=== PATIENT | male | born 1955 | race Caucasian/White ===

== ENCOUNTER 2017-07-17 11:30 | Observation (INO) ==
[2017-07-17] MEDS ORDERED: Azithromycin 500 MG in D5% in Water 250 ML IVPB ONE (11:36)
[2017-07-17] MEDS ORDERED: methylPREDNISolone 125 MG/2 ML VIAL IVP ONE (11:36)
[2017-07-17] MEDS ORDERED: cefTRIAXone 1,000 MG in Water for inj. (sterile) 20 ML 10 ML IVP ONE (11:36)
[2017-07-17] MEDS ORDERED: 0.9 % Sodium Chloride 1,000 ML IVC ONE (11:36)
--- NOTE | 2017-07-17 11:39 | Emergency Department Note ---
Disposition Clinical Impression: Acute exacerbation of chronic obstructive airways disease Disposition: Admitted As Inpatient Condition: Fair Referrals: Nelli Beckett, IDENTIFICATION OFFICER [Primary Care Provider] - Forms: ED Satisfaction Letter SOB HPI - General Chief Complaint: ED Shortness of Breath/Dyspnea Stated Complaint: difficulty breathinf, hemoptysis Time Seen by Provider: 07/17/17 11:36 Source: patient, family Mode of arrival: private vehicle Limitations: no limitations Nursing Notes Reviewed: Yes Vital Signs Reviewed: Yes - History of Present Illness Patient reports she has had upper respiratory congestion and cough for about 3 weeks. States he has been bringing up some phlegm and last week a little bit of blood-tinged sputum. He denies any coughing of blood in the last day. He has had increased shortness of breath and dyspnea on exertion. He is concerned he may have pneumonia. He does report some fevers and chills. He denies chest pain and states that he is having "just short of breath". Denies any ill exposures, abdominal pain, vomiting or diarrhea. He denies any lower extremity complaints. He has had his flu shot. On arrival his room air saturations were between 84 and 88% requiring placing him on supplemental oxygen. He indicates he does have an inhaler at home but he does not use it. Pt Subjective Complaint: shortness of breath Onset (ago): week(s) (3) Context: recent illness Severity: moderate, severe Consistency/Duration: gradually worsening Improves with: rest Worsens with: exertion, coughing Known history of: COPD (Not using inhalers) Associated symptoms: Reports: fever, cough, wheezing, sputum production, hemoptysis. Denies: chest pain, pain with inspiration, orthopnea, lower extremity pain, polyuria, polydipsia, parasthesias, palpitations, diaphoresis, nausea/vomiting, syncope, abdominal pain, rash Treatment prior to arrival: none Cough present: Yes Cough Description: Productive, Hacking, Rattling Cough Frequency: Intermittent Sputum production: Yes Sputum Amount: Moderate Sputum Color: Yellow, Blood Streaked - Related Data Home oxygen amount: none Home Medications Medication Instructions Recorded Confirmed Unable To Obtain [Unable to Obtain] 07/17/17 07/17/17 Allergies Allergy/AdvReac Type Severity Reaction Status Date / Time No Known Allergies Allergy Verified 07/17/17 11:32 All systems ED: reviewed and negative except as stated. Past Medical History - Past Medical History Attestation: Yes The following information was validated with the patient. Source: patient, obtained from family, nursing notes reviewed Medical history: Reports: COPD, diabetes, hypertension Surgical history: Reports: no surgical history Psychiatric history: Reports: anxiety, depression, schizophrenia - Social History Smoking Status: Current every day smoker Alcohol use: Reports: occasionally Drug use: Reports: none Physical Exam - General Limitations: no limitations General appearance: alert, in distress - Head Head exam: atraumatic, normocephalic, normal inspection - Eye Eye exam: Present: normal appearance, PERRL, EOMI. Absent: conjunctival injection - ENT ENT exam: normal oropharynx, mucous membranes dry - Neck Neck exam: Present: normal inspection, full ROM, trachea midline. Absent: tenderness, meningismus, lymphadenopathy - Chest Chest inspection: Present: normal inspection, symmetric chest wall rise - Respiratory Respiratory exam: Present: normal lung sounds bilaterally. Absent: respiratory distress, wheezes, prolonged expiratory phase - Cardiovascular Cardiovascular exam: Present: regular rate, normal rhythm, tachycardia, normal heart sounds. Absent: JVD - Abdominal Exam Abdominal exam: Present: soft, Non-Tender, normal bowel sounds. Absent: tenderness, distention, guarding, rebound, rigidity, pulsatile mass - Extremities Exam Extremities exam: Present: normal inspection, full ROM, normal capillary refill. Absent: tenderness, pedal edema, calf tenderness - Expanded Lower Extremity Exam Neurovascular/Tendon exam: Present: normal capillary refill. Absent: motor deficit, sensory deficit, tendon deficit Gait: observed and normal - Back Exam Back exam: Present: normal inspection, full ROM. Absent: tenderness, CVA tenderness (R), CVA tenderness (L), vertebral tenderness - Neurological Exam Neurological exam: Present: alert, oriented X3, normal gait. Absent: motor sensory deficit - Psychiatric Psychiatric exam: Present: normal affect, normal mood - Skin Skin exam: Present: warm, dry, intact, normal color. Absent: rash, cyanosis, diaphoresis, pallor Course Course Narrative: 1240: With return EKG, lab and x-ray, the patient is improving on aerosols, IV fluids, steroids and antibiotics. He currently has a heart rate of 103, saturation 97% on an aerosol treatment with a respiratory rate elevated at 30. His blood pressure is 148/81. I believe it would be prudent to continue him on oxygen by nasal cannula and IV treatment for his COPD exacerbation with serial aerosols as needed. A page has been placed to Dr. Blanco for this purpose with the plan for inpatient observation. This has been discussed with the patient and family and they are in agreement. Vital Signs Temperature 97.7 F 07/17/17 11:34 Pulse Rate 105 07/17/17 11:34 Respiratory Rate 28 07/17/17 11:34 Blood Pressure 156/85 07/17/17 11:34 O2 Sat by Pulse Oximetry 84 07/17/17 11:34 Temperature 97.7 F 07/17/17 11:34 Pulse Rate 99 07/17/17 12:31 Respiratory Rate 20 07/17/17 12:31 Blood Pressure 135/80 07/17/17 12:31 O2 Sat by Pulse Oximetry 96 07/17/17 12:31 Oxygen Delivery Oxygen Delivery Nasal Cannula Shortness of Breath/Dyspnea - Differential Diagnosis Likely: acute exacerbation of chronic obstructive airways disease, pneumonia - Medical Records Medical records reviewed: Yes I reviewed the patient's medical records. - Lab Data Lab results reviewed: Yes I reviewed the patient's lab results. Lab results narrative: Influenza A and influenza B are negative. Result diagrams: 07/17/17 11:55 07/17/17 11:55 Lab Results 07/17/17 07/17/17 07/17/17 Range/Units 11:55 11:55 11:55 WBC 8.8 (4.3-11.1) K/mcL RBC 4.42 (4.19-5.50) M/mcL Hgb 13.0 (12.9-16.9) g/dL Hct 38.0 (37.5-50.1) % MCV 86.0 (83.0-100.0) fL MCH 29.4 (28.0-33.3) pg MCHC 34.2 (31.6-35.5) g/dL RDW 14.6 H (11.5-14.5) % Plt Count 184 (140-400) K/mcL MPV 9.6 (9.4-12.4) fL Immature Gran % 0.5 (0-4) % Seg Neutrophils % 89.2 % Lymphocytes % 5.5 % Monocytes % 4.7 % Eosinophils % 0.0 % Basophils % 0.1 % Neutrophils # 7.9 (1.6-8.9) K/mcL Lymphocytes # 0.5 L (0.6-4.6) K/mcL Monocytes # 0.4 (0.0-1.3) K/mcL Eosinophils # 0.0 (0.0-0.6) K/mcL Basophils # 0.0 (0.0-0.2) K/mcL PT (9.4-12.1) Seconds INR APTT (26.0-36.0) Seconds Sodium 132 L (136-145) mEq/L Potassium 4.0 (3.5-5.1) mEq/L Chloride 93 L (98-107) mEq/L Carbon Dioxide 31 H (23-29) mEq/L BUN 8 (8-23) mg/dL Creatinine 0.48 L (0.70-1.30) mg/dL Est GFR ( Amer) > 60 (> 60) Est GFR (Non-Af Amer) > 60 (> 60) BUN/Creatinine Ratio 17 (6-26) Glucose 119 H (70-105) mg/dL Calculated Osmolality 273 L (280-300) Lactic Acid 1.0 (0.5-2.2) mmol/L Calcium 8.8 (8.6-10.3) mg/dL Troponin I (< 0.04) ng/mL B-Natriuretic Peptide (Less than 100) pg/mL 07/17/17 07/17/17 07/17/17 Range/Units 11:55 11:55 11:55 WBC (4.3-11.1) K/mcL RBC (4.19-5.50) M/mcL Hgb (12.9-16.9) g/dL Hct (37.5-50.1) % MCV (83.0-100.0) fL MCH (28.0-33.3) pg MCHC (31.6-35.5) g/dL RDW (11.5-14.5) % Plt Count (140-400) K/mcL MPV (9.4-12.4) fL Immature Gran % (0-4) % Seg Neutrophils % % Lymphocytes % % Monocytes % % Eosinophils % % Basophils % % Neutrophils # (1.6-8.9) K/mcL Lymphocytes # (0.6-4.6) K/mcL Monocytes # (0.0-1.3) K/mcL Eosinophils # (0.0-0.6) K/mcL Basophils # (0.0-0.2) K/mcL PT 10.6 (9.4-12.1) Seconds INR 1.0 APTT 28.9 (26.0-36.0) Seconds Sodium (136-145) mEq/L Potassium (3.5-5.1) mEq/L Chloride (98-107) mEq/L Carbon Dioxide (23-29) mEq/L BUN (8-23) mg/dL Creatinine (0.70-1.30) mg/dL Est GFR ( Amer) (> 60) Est GFR (Non-Af Amer) (> 60) BUN/Creatinine Ratio (6-26) Glucose (70-105) mg/dL Calculated Osmolality (280-300) Lactic Acid (0.5-2.2) mmol/L Calcium (8.6-10.3) mg/dL Troponin I < 0.03 (< 0.04) ng/mL B-Natriuretic Peptide 160 H (Less than 100) pg/mL - Radiology Data Radiology results reviewed: Yes I reviewed the patient's radiology results. Reviewed chest x-ray is performed. This shows hyperinflation consistent with COPD. He has some atelectasis present in the right base. He has high hilar fullness which is most prominent on the left side. I would be concerned for possible left hilar mass. Do not see evidence for effusion, pneumothorax or heart failure. The cardiac silhouette is not significantly enlarged. This is on my interpretation. Impressions Chest X-Ray 07/17/17 11:36 IMPRESSION: Hyperinflation and diffuse increased interstitial markings most suggestive of COPD. D/ / 07/17/2017 12:14:44 Bolivar Nix MD / [facility] Interpreting Provider: Bolivar Nix MD - EKG Data EKG attestation: Yes I reviewed and interpreted this EKG. EKG results narrative: Sinusoidal baseline artifact from the patient's tremor. Patient has a rate of 99, sinus with an axis of 38, AR interval of 170 and a QT/QTC is 341/397. Patient has evidence for LVH. I do not see acute ST or T-wave changes but baseline evaluation of this EKG is severely limited by the artifact.
[2017-07-17 12:03] LABS: Basophils % 0.1 %; Immature Granulocytes % 0.5 % (0-4); Lymphocytes # 0.5 K/mcL (0.6-4.6); Lymphocytes % 5.5 %; Mean Corpuscular HGB Conc 34.2 g/dL (31.6-35.5); Mean Corpuscular Hemoglobin 29.4 pg (28.0-33.3); Mean Platelet Volume 9.6 fL (9.4-12.4); Monocytes # 0.4 K/mcL (0.0-1.3); Monocytes % 4.7 %; Neutrophils # 7.9 K/mcL (1.6-8.9); Platelet Count 184 K/mcL (140-400); Red Blood Count 4.42 M/mcL (4.19-5.50); Red Cell Distribution Width 14.6 % (11.5-14.5); Segmented Neutrophils % 89.2 %
[2017-07-17 12:06] LABS: Prothrombin Time 10.6 Seconds (9.4-12.1)
[2017-07-17 12:09] LABS: Activated Partial Thrombo Time 28.9 Seconds (26.0-36.0)
[2017-07-17 12:17] LABS: BUN/Creatinine Ratio 17 (6-26); Blood Urea Nitrogen 8 mg/dL (8-23); Calcium 8.8 mg/dL (8.6-10.3); Carbon Dioxide 31 mEq/L (23-29); Chloride 93 mEq/L (98-107); Glucose 119 mg/dL (70-105); Osmolality,Calculated 273 (280-300); Sodium 132 mEq/L (136-145); eGFR For African Americans > 60 (> 60); eGFR For Non-African Americans > 60 (> 60)
[2017-07-17] MEDS: Ipratropium/Albuterol Neb 3 ML IH ONE ×2 (12:36→20:59)
[2017-07-17] MEDS ORDERED: 0.9 % Sodium Chloride 1,000 ML IVC SCH ×3 (13:45→15:00)
[2017-07-17] MEDS ORDERED: Albuterol 2.5 MG/3 ML NEBULIZER IH PRN (15:00)
[2017-07-17] MEDS ORDERED: Ondansetron 4 MG/2 ML VIAL IVP PRN (15:00)
[2017-07-17] MEDS ORDERED: Naloxone 0.4 MG/ML INJ IVP PRN (15:00)
[2017-07-17] MEDS ORDERED: Acetaminophen 325 MG TABLET PO PRN (15:00)
[2017-07-17] MEDS ORDERED: MOM Conc 10 ML UD.LIQ PO PRN (15:00)
[2017-07-17] MEDS ORDERED: Ipratropium/Albuterol Neb 3 ML IH SCH (16:00)
--- NOTE | 2017-07-17 19:41 | Internal Med History&Physical ---
Date of Encounter: 07/17/17 Time of Encounter: 19:10 Assessment and Plan (1) Acute exacerbation of chronic obstructive airways disease Current visit: Yes Status: Acute He has been started on Rocephin and Zithromax with prednisone. I will add lactobacillus. Chest CT will be done to further evaluate hemoptysis (2) Hypertension Current visit: Yes Status: Chronic He does not know the name of his blood pressure medication. Will monitor blood pressures and treat as needed. Qualifiers: Hypertension type: essential hypertension Qualified Code(s): I10 - Essential (primary) hypertension Internal Medicine - H&P: HPI Chief complaint: Fevers, chills, hemoptysis Admitted From: Emergency Dept Plans for Post Hospital Care: Home History of present illness: Mr. Russell is a 61 year old male who came to emergency room complaining of fevers chills and cough with occasional hemoptysis for the past 2-3 weeks. He has had increasing dyspnea on exertion. He was evaluated in emergency room and felt to have exacerbation of COPD. He was admitted to [facility] for for ongoing care needs. His respiratory history significant for having smoked since age 17 up to 3 packs per day. He has not had PFTs and does not use home oxygen. Past Med Surg Social Fam HX - Past Medical History Medical history: COPD, diabetes, hypertension Psychiatric history: anxiety, depression, schizophrenia - Past Surgical History Surgical History: no surgical history - Social History Smoking Status: Current every day smoker Smokeless Tobacco Status: No Alcohol use: occasionally Drug use: none Internal Medicine - H&P: Meds Unable To Obtain [Unable to Obtain] 07/17/17 [History] 3 Allergy/AdvReac Type Severity Reaction Status Date / Time No Known Allergies Allergy Verified 07/17/17 11:32 All Systems PM: A 10-system review of systems was performed and is negative for pertinent findings except as documented above in the HPI. Review of systems: Gen.: He states his weight is increased 15 pounds in the past 2 years, unintentional Cardiovascular: He has history of hypertension but denies SD heart failure or angina DVT or pulmonary embolism. He does get dyspneic on exertion. Respiratory: As per history of present illness GI: He denies disorders of his liver gallbladder or exocrine pancreas : He denies hematuria dysuria or kidney stones Neurologic: He denies large distribution strokes or seizures. Endocrine: He was diagnosed with DM 2 approximately 2001. He denies thyroid disease or hyperlipidemia Hematology/oncology: He denies blood disorders cancers or anemia Psychiatric: He has anxiety depression and schizophrenia. He follows with mental health clinic. Musculoskeletal: He reports occasional pain in his hand but denies significant arthritis gout or other bone joint or muscle disorders. - Constitutional Vitals: Temp Pulse Resp BP Pulse Ox 97.6 F 90 14 123/73 94 07/17/17 15:24 07/17/17 15:24 07/17/17 16:21 07/17/17 15:24 07/17/17 16:21 Exam: Gen.: He is a well-developed well-nourished male lying in bed who appears slightly dyspneic at rest HEENT: Head is atraumatic and normocephalic. Eyes: EOMI. There is no scleral icterus. Mouth: Mucosa is moist. Neck: Supple and nontender. There is no thyromegaly or adenopathy noted. Heart: Regular without murmurs gallops or ectopics Lungs: No wheezes or crackles are heard. He has diminished breath sounds diffusely. There is no egophony. Back: He has dorsal kyphosis. There is no flank tenderness or presacral edema Abdomen: Soft and nontender. No masses or guarding are noted. Extremities: There is no cyanosis edema or clubbing noted. Dorsalis pedis and posttibial pulses are trace palpable bilaterally. His feet are warm to touch. He has onychomycosis of most of his toenails. Neurologic: Mental status: He is talkative and seems to be a fair to good historian. Cranial nerves: Smile is symmetric. Forehead wrinkles bilaterally. Tongue protrudes midline. EOMI. Motor: There is no pronator drift. Cerebellar: Finger to nose is intact bilaterally. Skin: Warm and dry. He has poor hygiene. Internal Med - H&P Results - Labs CBC & Chem 7: 07/17/17 11:55 07/17/17 11:55
[2017-07-17] MEDS: predniSONE 20 MG TABLET PO SCH (21:27)
[2017-07-18 01:19] LABS: Bilirubin,Urine Negative (Negative); Blood,Urine Negative (Negative); Clarity,Urine Clear (Clear); Color,Urine Yellow (Yellow); Glucose,Urine (UA) 500 mg/dL (Normal); Ketones,Urine 40 mg/dL (Negative); Leukocyte Esterase,Urine Negative (Negative); Nitrite,Urine Negative (Negative); Protein,Urine Negative (Neg-Trace); Specific Gravity,Urine 1.015 (1.010-1.025)
[2017-07-18 04:53] LABS: Hematocrit 35.4 % (37.5-50.1); Immature Granulocytes % 0.8 % (0-4); Lymphocytes # 0.3 K/mcL (0.6-4.6); Mean Corpuscular HGB Conc 33.9 g/dL (31.6-35.5); Mean Corpuscular Hemoglobin 29.1 pg (28.0-33.3); Mean Corpuscular Volume 85.7 fL (83.0-100.0); Mean Platelet Volume 10.2 fL (9.4-12.4); Monocytes # 0.1 K/mcL (0.0-1.3); Monocytes % 2.3 %; Neutrophils # 4.4 K/mcL (1.6-8.9); Platelet Count 207 K/mcL (140-400); Red Blood Count 4.13 M/mcL (4.19-5.50); Red Cell Distribution Width 14.6 % (11.5-14.5); Segmented Neutrophils % 89.9 %
[2017-07-18 05:12] LABS: Alanine Aminotransferase 8 Units/L (7-52); Albumin 3.3 g/dL (3.5-5.7); Albumin/Globulin Ratio 1.3 (1.1-2.2); Alkaline Phosphatase 37 Units/L (34-104); Aspartate Amino Transferase 11 Units/L (13-39); BUN/Creatinine Ratio 19 (6-26); Bilirubin,Total 0.4 mg/dL (0.3-1.0); Blood Urea Nitrogen 8 mg/dL (8-23); Calcium 8.3 mg/dL (8.6-10.3); Carbon Dioxide 28 mEq/L (23-29); Chloride 98 mEq/L (98-107); Globulin 2.5 g/dL (2.4-3.5); Glucose 147 mg/dL (70-105); Osmolality,Calculated 277 (280-300); Potassium 4.1 mEq/L (3.5-5.1); Sodium 133 mEq/L (136-145); Total Protein 5.8 g/dL (6.4-8.9); eGFR For African Americans > 60 (> 60); eGFR For Non-African Americans > 60 (> 60)
[2017-07-18 05:26] LABS: Thyroid Stimulating Hormone 0.268 mcIU/mL (0.340-5.600)
[2017-07-18] MEDS ORDERED: Azithromycin 500 MG in D5% in Water 250 ML IVPB SCH (09:00)
--- NOTE | 2017-07-18 09:22 | Internal Med Progress Note ---
Date of Encounter: 07/18/17 Time of Encounter: 09:15 - Assessment and plan (1) Pneumonia Current Visit: Yes Status: Acute Assessment and plan: July 18. Continue antibiotics and lactobacillus. Qualifiers: Pneumonia type: due to unspecified organism Laterality: left Lung location: lower lobe of lung Qualified Code(s): J18.1 - Lobar pneumonia, unspecified organism (2) Acute exacerbation of chronic obstructive airways disease Current Visit: Yes Status: Acute Assessment and plan: July 18. Continue Rocephin, Zithromax, prednisone, and lactobacillus. (3) Hypertension Current Visit: Yes Status: Chronic Assessment and plan: July 18. Blood pressure remained stable off medication. Qualifiers: Hypertension type: essential hypertension Qualified Code(s): I10 - Essential (primary) hypertension (4) Abdominal mass, left upper quadrant Current Visit: Yes Status: Acute Assessment and plan: July 18. Will order abdominal/pelvis CT with contrast (5) Lung nodule Current Visit: Yes Status: Acute Assessment and plan: July 18. Chest CT showed 6 mm nodule in the peripheral left lower lobe. Will do further workup as needed. (6) Anemia Current Visit: Yes Status: Acute Assessment and plan: July 18. Hemoglobin has decreased to 12.0. We will order anemia testing in a.m. Qualifiers: Anemia type: unspecified type Qualified Code(s): D64.9 - Anemia, unspecified - Subjective Interval history: July 18. He has no new complaints. - Constitutional Vitals: Temp Pulse Resp BP Pulse Ox 98.0 F 79 17 119/76 96 07/18/17 07:02 07/18/17 07:02 07/18/17 07:02 07/18/17 07:02 07/18/17 07:02 Exam: He is resting comfortably in bed and appears in no acute distress. He had occasional cough during examination. Reviewed his medications, lab results, and CT chest report. Internal Medicine: Result - Labs CBC & Chem 7: 07/18/17 03:57 07/18/17 03:57 Labs: Short CBC 07/18/17 Range/Units 03:57 WBC 4.8 (4.3-11.1) K/mcL Hgb 12.0 L (12.9-16.9) g/dL Hct 35.4 L (37.5-50.1) % Plt Count 207 (140-400) K/mcL Neutrophils # 4.4 (1.6-8.9) K/mcL BMP 07/18/17 03:57 Sodium 133 L Potassium 4.1 Chloride 98 Carbon Dioxide 28 BUN 8 Creatinine 0.43 L Glucose 147 H Calcium 8.3 L Liver Function 07/18/17 Range/Units 03:57 Total Bilirubin 0.4 (0.3-1.0) mg/dL AST 11 L (13-39) Units/L ALT 8 (7-52) Units/L Alkaline Phosphatase 37 (34-104) Units/L Albumin 3.3 L (3.5-5.7) g/dL Urine 07/17/17 Range/Units 23:14 Urine Color Yellow (Yellow) Urine Clarity Clear (Clear) Urine pH 7.0 (5.0-8.0) pH Units Ur Specific [place] 1.015 (1.010-1.025) Urine Protein Negative (Neg-Trace) mg/dL Urine Glucose (UA) 500 H (Normal) mg/dL - ABG Interpretation ABG results: PT/INR, D-dimer PT 10.6 Seconds (9.4-12.1) 07/17/17 11:55 - Impressions Impressions Chest CT 07/17/17 19:37 IMPRESSION: 1. There is moderate motion degradation, which limits the evaluation, especially within the lower lungs and the upper abdomen. 2. Evidence of probable left lower lobe consolidation, suggesting pneumonia, with a small left parapneumonic effusion. That should be followed to resolution. 3. There is a soft tissue mass seen within the left upper quadrant, poorly evaluated secondary to the degree of respiratory motion artifact. It probably extends from the left kidney or less likely the left adrenal gland, but even that is uncertain. At this point, dedicated CT of the abdomen pelvis with contrast is recommended for further evaluation. 4. Nodule in the left lower lobe. Management of that will depend on the workup of the mass in the left upper abdominal quadrant. D/ / Nadeem Mckinley MD / Nadeem Mckinley MD Interpreting Provider: Nadeem Mckinley MD - VTE Documentation of Mechanical Device: Graduated compression elastic hosiery Consult Discharge Plan - Plan Referrals: Nelli Beckett, THERAPEUTIC STRATEGY LEAD [Primary Care Provider] - 1 week
[2017-07-18] MEDS: predniSONE 20 MG TABLET PO SCH ×2 (09:48→16:43)
[2017-07-18 18:19] VITALS: BP 114/68
--- NOTE | 2017-07-19 07:57 | Electrocardiograph Report ---
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
[2017-07-19] MEDS ORDERED: cefTRIAXone 1,000 MG in Water for inj. (sterile) 10 ML IVP SCH (09:00)
[2017-07-19] MEDS ORDERED: Azithromycin 500 MG in D5% in Water 250 ML IVPB SCH (10:00)
--- NOTE | 2017-07-19 14:11 | Discharge Summary ---
Date of Encounter: 07/19/17 Time of Encounter: 14:05 - Discharge Diagnosis (1) Pneumonia Priority: Primary Status: Acute Qualifiers: Pneumonia type: due to unspecified organism Laterality: left Lung location: lower lobe of lung Qualified Code(s): J18.1 - Lobar pneumonia, unspecified organism (2) Acute exacerbation of chronic obstructive airways disease Priority: Secondary Status: Acute (3) Hypertension Priority: Secondary Status: Chronic Qualifiers: Hypertension type: essential hypertension Qualified Code(s): I10 - Essential (primary) hypertension (4) Lung nodule Priority: Secondary Status: Acute (5) Anemia Priority: Secondary Status: Acute Qualifiers: Anemia type: unspecified type Qualified Code(s): D64.9 - Anemia, unspecified - Discharge Medications Home Medications: Unable To Obtain [Unable to Obtain] 07/17/17 [History] Allergies/Adverse Reactions: 3 Allergy/AdvReac Type Severity Reaction Status Date / Time No Known Allergies Allergy Verified 07/17/17 11:32 Procedures/tests Complete & Pending: Procedures Performed prior 72 hours Category Date Time Status CT abd pelvis w iv and oral [CT] Routine Cat Scan 07/18/17 09:[address] chest wo con [CT] Routine Cat Scan 07/17/17 19:37 Completed Date of admission: 07/17/17 14:56 Primary care physician: Nelli Beckett CNP Consults: 07/17/17 15:43 Consult to Nutrition [CONS] Routine Comment: Consulting Provider: NUTRITION Reason for Dietary Consult: MST Score - Patient Status Disposition: Transfer Other Condition: Fair - Discharge Instructions Instructions: Chronic Obstructive Pulmonary Disease (DC), Chronic Hypertension (DC), Pneumonia (DC) Follow Up With: Nelli Beckett CNP [Primary Care Provider] - 1 week (Transferred to [place]) Hospital course: Mr. Russell is a 61 year old male who came to emergency room complaining of fevers chills and cough with occasional hemoptysis for the past 2-3 weeks. He has had increasing dyspnea on exertion. He was evaluated in emergency room and felt to have exacerbation of COPD. He was admitted to [facility] for for ongoing care needs. Initial orders were written by the emergency room physician. I saw him on July 17 and performed the history and physical. He was started empirically on Rocephin, Zithromax and prednisone through emergency room. I ordered chest CT to further evaluate hemoptysis. The chest CT showed probable left lower lobe consolidation consistent with pneumonia. There was a 6 mm nodule present in the peripheral aspect of the left lower lobe. There was a soft tissue mass in the left upper quadrant that was poorly evaluated. Dedicated CT of the abdomen and pelvis with contrast was recommended. Abdominal/pelvic CT was ordered and showed an 8.7 x 9.3 x 8.6 cm heterogeneous partially enhancing mass in the left suprarenal space. Radiologist felt it was likely neoplasm such as adrenal cortical carcinoma or pheochromocytoma. I discussed this finding with the patient and he was agreeable to be transferred to [facility] for further evaluation. - Time Spent with Patient Total time spent providing and/or coordinating discharge services: - Constitutional Vitals: Temp Pulse Resp BP Pulse Ox 97.7 F 81 16 114/68 96 07/18/17 18:16 07/18/17 18:16 07/18/17 18:16 07/18/17 18:16 07/18/17 18:16 - VTE Documentation of Mechanical Device: Graduated compression elastic hosiery
== END 2017-07-18 19:52 | disposition short-term general hospital (02) ==
LOC: INPPIK 11:30 → EMEROOPIK 11:30 → INPPIK 15:15
PROVIDERS: ADMIT Internal Medicine; ATTEND Internal Medicine

== ENCOUNTER 2018-01-18 16:56 | Observation (INO) ==
[2018-01-18] MEDS ORDERED: Ipratropium/Albuterol Neb 3 ML IH ONE (17:21)
[2018-01-18] MEDS ORDERED: methylPREDNISolone 125 MG/2 ML VIAL IVP ONE (17:21)
--- NOTE | 2018-01-18 17:23 | Emergency Department Note ---
Disposition Clinical Impression: Weakness, Complaint of debility and malaise, SOB (shortness of breath), Hyponatremia Disposition: Admitted As Inpatient Condition: Undetermined Time of Disposition: 18:26 (Dr Blanco accepted the pt) SOB HPI - General Chief Complaint: ED Shortness of Breath/Dyspnea Stated Complaint: SOB Source: patient, family Limitations: no limitations Nursing Notes Reviewed: Yes Vital Signs Reviewed: Yes - History of Present Illness Patient is a pleasant 62-year-old male with past medical history significant for HTN, DM, Dyslipidemia and COPD who is presenting to [facility] Emergency Room with a chief complaint off progressive shortness of breath and generalized weakness and malaise. He states that he was at the [facility] about 7 months ago and desires to go back to rehabilitation. Patient denies any fever, chills or night sweats. Pt also denies any eye pain or visual disturbances. There is no sore throat, nasal drainages or facial congestion. There is no chest pain, palpitations or racing heart. Pt denies any cough or chest congestion. There is no abdominal pain, nausea, vomiting or diarrhea. There is no urgency, frequency or dysuria. There is no muskulo-skeletal pain, arthralgia or back pain. Patient also denies any rash, edema or pruritus. There is no neurological manifestations, no headache, no vertigo or weakness. The patient also denies any anxiety, depression, hallucinations and has no homicidal or suicidal ideations. There is no polyuria, polydipsia or recent weight change. There is no easy bruising or bleeding. Review of other systems is otherwise negative except above. Pt Subjective Complaint: shortness of breath Onset (ago): day(s) Severity: moderate Consistency/Duration: gradually worsening - Related Data Home Medications Medication Instructions Recorded Confirmed Lisinopril-HCTZ 20-12.5 [Prinzide 2 each PO DAILY 01/18/18 01/18/18 20-12.5] Lovastatin [Altoprev] 40 mg PO DAILY 01/18/18 01/18/18 amLODIPine [Norvasc] 10 mg PO DAILY 01/18/18 01/18/18 metFORMIN [Glucophage] 500 mg PO BIDWM 01/18/18 01/18/18 Allergies Allergy/AdvReac Type Severity Reaction Status Date / Time No Known Allergies Allergy Verified 07/26/18 16:56 All systems ED: reviewed and negative except as stated. Review of Systems: As Per HPI Constitutional: Reports: weakness. Denies: fever, chills Eyes: Denies: eye pain, eye discharge, vision change ENT ED: Denies: ear pain, throat pain, dental pain Cardiovascular: Reports: dyspnea on exertion. Denies: chest pain, palpitations Respiratory: Reports: dyspnea. Denies: cough, wheezes Gastrointestinal: Denies: abdominal pain, nausea, vomiting Genitourinary: Denies: urgency, dysuria, frequency Musculoskeletal: Reports: myalgia. Denies: back pain, neck pain Past Medical History - Past Medical History [facility] Narrative: Patient is a pleasant 62-year-old male with past medical history significant for HTN, DM, Dyslipidemia and COPD who is presenting to [facility] Emergency Room with a chief complaint off Patient denies any fever, chills or night sweats. Pt also denies any eye pain or visual disturbances. There is no sore throat, nasal drainages or facial congestion. There is no chest pain, palpitations or racing heart. Pt also denies any shortness of breath, cough or chest congestion. There is no abdominal pain, nausea, vomiting or diarrhea. There is no urgency, frequency or dysuria. There is no muskulo-skeletal pain, arthralgia or back pain. Patient also denies any rash, edema or pruritus. There is no neurological manifestations, no headache, no vertigo or weakness. The patient also denies any anxiety, depression, hallucinations and has no homicidal or suicidal ideations. There is no polyuria, polydipsia or recent weight change. There is no easy bruising or bleeding. Review of other systems is otherwise negative except above. Medical history: Reports: COPD, diabetes, hypertension Surgical history: Reports: no surgical history Psychiatric history: Reports: anxiety, depression, schizophrenia - Social History Smoking Status: Current every day smoker Smokeless Tobacco Status: No Alcohol use: Reports: rarely Drug use: Reports: none Physical Exam - General Limitations: no limitations General appearance: alert, lethargic, in distress, cachectic - Head Head exam: atraumatic, normocephalic, normal inspection - Eye Eye exam: Present: normal appearance, PERRL, EOMI - Expanded Eye Exam Pupils: Left: reactive - ENT ENT exam: normal exam, normal oropharynx, mucous membranes moist - Expanded ENT Exam External ear exam: Present: normal external inspection Mouth exam: Present: normal external inspection Teeth exam: Present: normal inspection Throat exam: Present: normal inspection - Neck Neck exam: Present: normal inspection, full ROM, trachea midline - Chest Chest inspection: Present: normal inspection, symmetric chest wall rise - Respiratory Respiratory exam: Present: normal lung sounds bilaterally, wheezes, prolonged expiratory phase - Cardiovascular Cardiovascular exam: Present: normal rhythm, tachycardia, normal heart sounds - Abdominal Exam Abdominal exam: Present: soft, Non-Tender. Absent: tenderness, distention, guarding, rebound, rigidity - Extremities Exam Extremities exam: Present: normal inspection, full ROM. Absent: tenderness, pedal edema - Expanded Upper Extremity Exam Shoulder exam: Present: normal inspection, full ROM Arm exam: Present: normal inspection, full ROM Elbow exam: Present: normal inspection, full ROM Forearm/Wrist exam: Present: normal inspection, full ROM Hand exam: Present: normal inspection, full ROM Vascular exam: Normal: capillary refill, radial pulse - Expanded Lower Extremity Exam Hip/Pelvis exam: Present: normal inspection, full ROM Upper leg exam: Present: normal inspection, full ROM Knee exam: Present: normal inspection, full ROM Lower leg exam: Present: normal inspection, full ROM Ankle exam: Present: normal inspection, full ROM Foot/toe exam: Present: normal inspection, full ROM Neurovascular/Tendon exam: Absent: motor deficit, sensory deficit, tendon deficit - Back Exam Back exam: Present: normal inspection, full ROM. Absent: tenderness - Neurological Exam Neurological exam: Present: alert, oriented X3 - Expanded Neurological Exam Patient oriented to: Present: person, place, time Coma Scale Eye Opening: Spontaneous Coma Scale Motor Response: Obeys Commands Coma Scale Verbal Response: Oriented Coma Scale Total: 15 - Psychiatric Psychiatric exam: Present: normal affect, normal mood - Skin Skin exam: Present: warm, dry, intact, normal color Course Vital Signs Temperature 99 F 01/18/18 16:58 Pulse Rate 111 01/18/18 16:58 Respiratory Rate 15 01/18/18 16:58 Blood Pressure 123/72 01/18/18 16:58 O2 Sat by Pulse Oximetry 97 01/18/18 16:58 Temperature 99 F 01/18/18 16:58 Pulse Rate 98 01/18/18 18:44 Respiratory Rate 20 01/18/18 18:44 Blood Pressure 132/85 01/18/18 18:44 O2 Sat by Pulse Oximetry 96 01/18/18 18:44 Oxygen Delivery Oxygen Delivery Room Air Shortness of Breath/Dyspnea - Differential Diagnosis Likely: acute exacerbation of chronic obstructive airways disease - Medical Records Medical records reviewed: Yes I reviewed the patient's medical records. - Lab Data Lab results reviewed: Yes I reviewed the patient's lab results. Result diagrams: 01/18/18 17:41 01/18/18 17:41 Lab Results 01/18/18 01/18/18 01/18/18 Range/Units 17:41 17:41 17:41 WBC 5.7 (4.3-11.1) K/mcL RBC 4.46 (4.19-5.50) M/mcL Hgb 12.4 L (12.9-16.9) g/dL Hct 35.8 L (37.5-50.1) % MCV 80.3 L (83.0-100.0) fL MCH 27.8 L (28.0-33.3) pg MCHC 34.6 (31.6-35.5) g/dL RDW 16.2 H (11.5-14.5) % Plt Count 287 (140-400) K/mcL MPV 8.7 L (9.4-12.4) fL Immature Gran % 0.2 (0-4) % Seg Neutrophils % 59.2 % Lymphocytes % 24.6 % Monocytes % 11.6 % Eosinophils % 3.9 % Basophils % 0.5 % Neutrophils # 3.4 (1.6-8.9) K/mcL Lymphocytes # 1.4 (0.6-4.6) K/mcL Monocytes # 0.7 (0.0-1.3) K/mcL Eosinophils # 0.2 (0.0-0.6) K/mcL Basophils # 0.0 (0.0-0.2) K/mcL PT (9.4-12.1) Seconds INR APTT (26.0-36.0) Seconds Sodium 128 L (136-145) mEq/L Potassium 4.3 (3.5-5.1) mEq/L Chloride 93 L (98-107) mEq/L Carbon Dioxide 30 H (23-29) mEq/L BUN 9 (8-23) mg/dL Creatinine 0.86 (0.70-1.30) mg/dL Est GFR ( Amer) > 60 (> 60) Est GFR (Non-Af Amer) > 60 (> 60) BUN/Creatinine Ratio 10 (6-26) Glucose 116 H (70-105) mg/dL Calculated Osmolality 266 L (280-300) Calcium 9.0 (8.6-10.3) mg/dL Troponin I < 0.03 (< 0.04) ng/mL B-Natriuretic Peptide 44 (Less than 100) pg/mL 01/18/18 Range/Units 17:41 WBC (4.3-11.1) K/mcL RBC (4.19-5.50) M/mcL Hgb (12.9-16.9) g/dL Hct (37.5-50.1) % MCV (83.0-100.0) fL MCH (28.0-33.3) pg MCHC (31.6-35.5) g/dL RDW (11.5-14.5) % Plt Count (140-400) K/mcL MPV (9.4-12.4) fL Immature Gran % (0-4) % Seg Neutrophils % % Lymphocytes % % Monocytes % % Eosinophils % % Basophils % % Neutrophils # (1.6-8.9) K/mcL Lymphocytes # (0.6-4.6) K/mcL Monocytes # (0.0-1.3) K/mcL Eosinophils # (0.0-0.6) K/mcL Basophils # (0.0-0.2) K/mcL PT 10.7 (9.4-12.1) Seconds INR 1.0 APTT 32.2 (26.0-36.0) Seconds Sodium (136-145) mEq/L Potassium (3.5-5.1) mEq/L Chloride (98-107) mEq/L Carbon Dioxide (23-29) mEq/L BUN (8-23) mg/dL Creatinine (0.70-1.30) mg/dL Est GFR ( Amer) (> 60) Est GFR (Non-Af Amer) (> 60) BUN/Creatinine Ratio (6-26) Glucose (70-105) mg/dL Calculated Osmolality (280-300) Calcium (8.6-10.3) mg/dL Troponin I (< 0.04) ng/mL B-Natriuretic Peptide (Less than 100) pg/mL - Radiology Data Radiology results reviewed: Yes I reviewed the patient's radiology results. - EKG Data EKG attestation: Yes I reviewed and interpreted this EKG. EKG shows normal: Reports: sinus rhythm Rate: Reports: normal Rhythm: Reports: NSR
[2018-01-18 17:48] LABS: Basophils % 0.5 %; Eosinophils # 0.2 K/mcL (0.0-0.6); Eosinophils % 3.9 %; Hematocrit 35.8 % (37.5-50.1); Hemoglobin 12.4 g/dL (12.9-16.9); Immature Granulocytes % 0.2 % (0-4); Lymphocytes # 1.4 K/mcL (0.6-4.6); Lymphocytes % 24.6 %; Mean Corpuscular HGB Conc 34.6 g/dL (31.6-35.5); Mean Corpuscular Hemoglobin 27.8 pg (28.0-33.3); Mean Corpuscular Volume 80.3 fL (83.0-100.0); Mean Platelet Volume 8.7 fL (9.4-12.4); Monocytes # 0.7 K/mcL (0.0-1.3); Monocytes % 11.6 %; Neutrophils # 3.4 K/mcL (1.6-8.9); Platelet Count 287 K/mcL (140-400); Red Blood Count 4.46 M/mcL (4.19-5.50); Red Cell Distribution Width 16.2 % (11.5-14.5); Segmented Neutrophils % 59.2 %
[2018-01-18 17:56] LABS: Prothrombin Time 10.7 Seconds (9.4-12.1)
[2018-01-18 17:59] LABS: Activated Partial Thrombo Time 32.2 Seconds (26.0-36.0)
[2018-01-18 18:06] LABS: BUN/Creatinine Ratio 10 (6-26); Blood Urea Nitrogen 9 mg/dL (8-23); Carbon Dioxide 30 mEq/L (23-29); Chloride 93 mEq/L (98-107); Glucose 116 mg/dL (70-105); Osmolality,Calculated 266 (280-300); Potassium 4.3 mEq/L (3.5-5.1); Sodium 128 mEq/L (136-145); eGFR For African Americans > 60 (> 60); eGFR For Non-African Americans > 60 (> 60)
[2018-01-18 18:12] LABS: Troponin I < 0.03 ng/mL (< 0.04)
[2018-01-18] MEDS ORDERED: 0.9 % Sodium Chloride 1,000 ML IVC ONE (18:25)
[2018-01-18] MEDS ORDERED: Naloxone 0.4 MG/ML INJ IVP PRN ×2 (18:35→20:06)
[2018-01-18] MEDS ORDERED: 0.9 % Sodium Chloride 1,000 ML IVC SCH (18:45)
[2018-01-18] MEDS: 0.9 % Sodium Chloride 1,000 ML IVC SCH (23:36)
[2018-01-19 06:22] LABS: Hematocrit 33.2 % (37.5-50.1); Hemoglobin 11.6 g/dL (12.9-16.9); Mean Corpuscular HGB Conc 34.9 g/dL (31.6-35.5); Mean Corpuscular Hemoglobin 28.1 pg (28.0-33.3); Mean Corpuscular Volume 80.4 fL (83.0-100.0); Platelet Count 268 K/mcL (140-400); Red Blood Count 4.13 M/mcL (4.19-5.50); Red Cell Distribution Width 16.4 % (11.5-14.5)
[2018-01-19 06:42] LABS: Alanine Aminotransferase 8 Units/L (7-52); Albumin 3.2 g/dL (3.5-5.7); Albumin/Globulin Ratio 1.5 (1.1-2.2); Alkaline Phosphatase 52 Units/L (34-104); Aspartate Amino Transferase 13 Units/L (13-39); BUN/Creatinine Ratio 15 (6-26); Bilirubin,Total 0.2 mg/dL (0.3-1.0); Blood Urea Nitrogen 9 mg/dL (8-23); Calcium 8.7 mg/dL (8.6-10.3); Carbon Dioxide 24 mEq/L (23-29); Chloride 101 mEq/L (98-107); Globulin 2.2 g/dL (2.4-3.5); Glucose 137 mg/dL (70-105); Osmolality,Calculated 271 (280-300); Potassium 4.4 mEq/L (3.5-5.1); Sodium 130 mEq/L (136-145); Total Protein 5.4 g/dL (6.4-8.9); eGFR For African Americans > 60 (> 60); eGFR For Non-African Americans > 60 (> 60)
[2018-01-19] MEDS: *HR* Metformin 500 MG TABLET PO SCH ×2 (07:36→17:12)
[2018-01-19] MEDS ORDERED: Lisinopril-HCTZ 20-12.5mg TABLET PO SCH (09:00)
[2018-01-19] MEDS ORDERED: hydroCHLOROthiazide 25 MG TABLET PO SCH (09:00)
[2018-01-19] MEDS: Lisinopril 20 MG TABLET PO SCH (09:05)
[2018-01-19] MEDS: amLODIPine 5 MG TABLET PO SCH (09:05)
--- NOTE | 2018-01-19 09:50 | Internal Med History&Physical ---
Date of Encounter: 01/19/18 Time of Encounter: 09:15 Assessment and Plan (1) Dyspnea Current visit: Yes Status: Acute Chest x-ray and BN peptide unremarkable. Will proceed with chest and abdominal CT to further evaluate this and weight loss. Room air oximetry will be checked on 6 minute walk. Qualifiers: Dyspnea type: unspecified Qualified Code(s): R06.00 - Dyspnea, unspecified (2) Weight loss Current visit: Yes Status: Acute TSH was suppressed at 0.268 on 07/18/2017. Recheck in a.m. Order CT as per above. (3) Low TSH level Current visit: Yes Status: Acute As per above (4) COPD (chronic obstructive pulmonary disease) Current visit: Yes Status: Chronic Check room air oximetry on 6 minute walk in a.m. Start Spiriva and prn albuterol. Qualifiers: COPD type: unspecified COPD Qualified Code(s): J44.9 - Chronic obstructive pulmonary disease, unspecified (5) Hypertension Current visit: No Status: Chronic Discontinue Prinzide secondary to hyponatremia. Continue lisinopril and amlodipine. Qualifiers: Hypertension type: essential hypertension Qualified Code(s): I10 - Essential (primary) hypertension (6) Anemia Current visit: No Status: Acute Order anemia testing in a.m. Qualifiers: Anemia type: unspecified type Qualified Code(s): D64.9 - Anemia, unspecified (7) Hyponatremia Current visit: Yes Status: Acute Suspect secondary to Prinzide use. Discontinue prednisone at and monitor labs. (8) DM type 2 (diabetes mellitus, type 2) Current visit: Yes Status: Chronic Check hemoglobin A1c in a.m. Continue metformin for now. 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 Qualifiers: Hyperlipidemia type: unspecified Qualified Code(s): E78.5 - Hyperlipidemia , unspecified (10) Weakness Current visit: Yes Status: Acute Order PT and OT evaluation. Internal Medicine - H&P: HPI Chief complaint: Dyspnea and weakness Admitted From: Emergency Dept Plans for Post Hospital Care: Home History of present illness: Mr. Russell is a 62 year old male who came to emergency room stating he had increased dyspnea over the preceding 2 days. He reports occasional cough with minimal productivity. He denies pain. He was evaluated in emergency room and found to have hyponatremia and anemia. He was admitted to [facility] floor for ongoing care needs. He states he feels improved at present time but not back to his baseline. Respiratory history is significant for having smoked since age 17 up to 3 packs per day. He has not had PFTs and does not use home oxygen. Past Med Surg Social Fam HX - Past Medical History Medical history: COPD, diabetes, hypertension Additional medical history: PT UNABLE TO GIVE ACCURATE MEDICAL HISTORY Psychiatric history: anxiety, depression, schizophrenia - Past Surgical History Surgical History: no surgical history Additional surgical history: tumor removed from left side abdomen - Social History Smoking Status: Current every day smoker Smokeless Tobacco Status: No Alcohol use: rarely Drug use: none Internal Medicine - H&P: Meds Lisinopril-HCTZ 20-12.5 [Prinzide 20-12.5] 2 each PO DAILY 01/18/18 [History] Lovastatin [Altoprev] 40 mg PO DAILY 01/18/18 [History] amLODIPine [Norvasc] 10 mg PO DAILY 01/18/18 [History] metFORMIN [Glucophage] 500 mg PO BIDWM 01/18/18 [History] 3 Allergy/AdvReac Type Severity Reaction Status Date / Time No Known Allergies Allergy Verified 01/18/18 16:56 All Systems PM: A 10-system review of systems was performed and is negative for pertinent findings except as documented above in the HPI. Review of systems: Gen.: His weight has decreased from 66.5 kg and 07/18/2017 to 59.534 kg now. Weight loss was unintentional. Cardiovascular: He has history of hypertension but denies CT heart failure or angina DVT or pulmonary embolism. He does get dyspneic on exertion. Respiratory: As per history of present illness GI: He denies disorders of his liver gallbladder or exocrine pancreas : He denies hematuria dysuria or kidney stones. 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 He reports pathology was benign. Neurologic: He denies large distribution strokes or seizures. Endocrine: He was diagnosed with DM 2 approximately 2001. He denies thyroid disease or hyperlipidemia Hematology/oncology: He denies blood disorders or cancers. Anemia was present 07/18/2017 upon transfer to [facility]. No anemia testing is noted in archived labs. Psychiatric: He has anxiety depression and schizophrenia. He follows with mental health clinic. Musculoskeletal: He reports occasional pain in his hand but denies significant arthritis gout or other bone joint or muscle disorders. - Constitutional Vitals: Temp Pulse Resp BP Pulse Ox 98.1 F 92 16 124/73 95 01/19/18 07:16 01/19/18 09:04 01/19/18 07:16 01/19/18 09:04 01/19/18 09:04 Exam: Gen.: He is a well-developed lean male lying in bed who appears in no acute distress. HEENT: Head is atraumatic and normocephalic. Eyes: EOMI. There is no scleral icterus. Mouth: Mucosa is moist. Neck: Supple and nontender. There is no thyromegaly or adenopathy noted. Heart: Regular without murmurs gallops or ectopics Lungs: He has diminished breath sounds diffusely. No wheezes or crackles are heard. Back: He has dorsal kyphosis. Abdomen: Soft and nontender. No masses or guarding are noted. He has a healed recent scar in his upper abdominal area from September 2017 left suprarenal mass excision surgery. Extremities: There is no cyanosis edema or clubbing noted. Dorsalis pedis and posttibial pulses are trace to 1+ palpable bilaterally. Neurologic: Mental status: He is a good historian. Cranial nerves: Smile is symmetric. Forehead wrinkles bilaterally. Tongue protrudes midline. EOMI. Motor: There is no pronator drift. Cerebellar: Finger to nose is intact bilaterally. Skin: Warm and dry. He has suboptimal hygiene. Internal Med - H&P Results - Labs CBC & Chem 7: 01/19/18 05:59 01/19/18 05:59 Labs: Short CBC 01/19/18 Range/Units 05:59 WBC 3.8 L (4.3-11.1) K/mcL Hgb 11.6 L (12.9-16.9) g/dL Hct 33.2 L (37.5-50.1) % Plt Count 268 (140-400) K/mcL BMP 01/19/18 05:59 Sodium 130 L Potassium 4.4 Chloride 101 Carbon Dioxide 24 BUN 9 Creatinine 0.59 L Glucose 137 H Calcium 8.7 Liver Function 01/19/18 Range/Units 05:59 Total Bilirubin 0.2 L (0.3-1.0) mg/dL AST 13 (13-39) Units/L ALT 8 (7-52) Units/L Alkaline Phosphatase 52 (34-104) Units/L Albumin 3.2 L (3.5-5.7) g/dL
[2018-01-19] MEDS: 0.9 % Sodium Chloride 1,000 ML IVC SCH (12:50)
--- NOTE | 2018-01-19 16:33 | Electrocardiograph Report ---
[address] [address] Test Date: 2018-01-18 Pat Name: Angel Russell Department: [id number] Room: [facility] Gender: M [employer]: [id number] : 1955 Requested By: Ashley Dia Order Number: [id number] Reading MD: Fareed Langston Measurements Intervals [place] Rate: 105 P: 85 NH: 159 QRS: 39 QRSD: 84 T: 77 QT: 310 QTc: 371 Interpretive Statements SINUS TACHYCARDIA VOLTAGE CRITERIA FOR LVH Electronically Signed On 01-19-2018 16:31:52 EDT by Fareed Langston
[2018-01-20 06:14] LABS: BUN/Creatinine Ratio 12 (6-26); Blood Urea Nitrogen 7 mg/dL (8-23); Calcium 8.8 mg/dL (8.6-10.3); Carbon Dioxide 29 mEq/L (23-29); Chloride 96 mEq/L (98-107); Glucose 83 mg/dL (70-105); Magnesium 1.8 mg/dL (1.6-2.6); Osmolality,Calculated 267 (280-300); Potassium 3.9 mEq/L (3.5-5.1); Sodium 130 mEq/L (136-145); eGFR For African Americans > 60 (> 60); eGFR For Non-African Americans > 60 (> 60)
[2018-01-20 06:24] LABS: Thyroid Stimulating Hormone 1.658 mcIU/mL (0.340-5.600)
[2018-01-20] MEDS: amLODIPine 5 MG TABLET PO SCH (08:11)
[2018-01-20] MEDS: Lisinopril 20 MG TABLET PO SCH (08:11)
[2018-01-20] MEDS: *HR* Metformin 500 MG TABLET PO SCH (08:11)
[2018-01-20 08:55] LABS: Basophils % 0.6 %; Eosinophils # 0.2 K/mcL (0.0-0.6); Eosinophils % 3.1 %; Hematocrit 33.4 % (37.5-50.1); Hemoglobin 11.6 g/dL (12.9-16.9); Immature Granulocytes % 0.3 % (0-4); Lymphocytes # 1.5 K/mcL (0.6-4.6); Lymphocytes % 21.5 %; Mean Corpuscular HGB Conc 34.7 g/dL (31.6-35.5); Mean Corpuscular Hemoglobin 28.2 pg (28.0-33.3); Mean Corpuscular Volume 81.1 fL (83.0-100.0); Mean Platelet Volume 9.4 fL (9.4-12.4); Monocytes # 0.6 K/mcL (0.0-1.3); Monocytes % 8.1 %; Neutrophils # 4.7 K/mcL (1.6-8.9); Platelet Count 289 K/mcL (140-400); Red Blood Count 4.12 M/mcL (4.19-5.50); Red Cell Distribution Width 16.6 % (11.5-14.5); Segmented Neutrophils % 66.4 %
[2018-01-20 09:59] LABS: Estimated Average Glucose 126 mg/dl
[2018-01-20 10:13] LABS: Folate 8.3 ng/mL (3.0-16.0)
[2018-01-20 11:38] VITALS: BP 119/75
--- NOTE | 2018-01-20 14:34 | Discharge Summary ---
- NOTES TO OUTPATIENT PROVIDER Notes to Outpatient Provider: CT scan showed a right lower lobe mass is 1.7 x 2 cm is recommended for follow-up possibly a malignancy. Stable left lower lobe 4.2 mm nodule Also bilateral common iliac aneurysms left 3.1 cm and right 1.7 cm common ferritin was 12 iron was 15, B12 was 180 sodium was 130. Consider outpatient workup for bleeding like a colonoscopy if not done recently. Follow up on the potassium level since stopping the hydrochlorothiazide and on Prinivil Date of Encounter: 01/20/18 Time of Encounter: 14:30 - Discharge Diagnosis (1) Iron deficiency anemia Priority: Primary Status: Acute Comments: Ferritin level is 12 iron was 15 mL unsure why it is low recommend considering an outpatient workup for bleeding like a colonoscopy Qualifiers: Iron deficiency anemia type: unspecified iron deficiency Qualified Code(s) : D50.9 - Iron deficiency anemia, unspecified (2) B12 deficiency Priority: Primary Status: Acute Comments: Recommended B12 supplement (3) Common iliac aneurysm Priority: Secondary Status: Chronic Comments: Recommend follow-up studies to measure its growth for potential intervention (4) Right lower lobe lung mass Priority: Secondary Status: Acute Comments: Recommend follow-up CT scan in the future to further clarify whether it is getting smaller or larger (5) Schizophrenia Priority: Secondary Status: Chronic Comments: Not on antipsychotic Qualifiers: Schizophrenia type: unspecified Qualified Code(s): F20.9 - Schizophrenia, unspecified (6) Dyspnea Priority: Primary Status: Acute Comments: He reports feeling much better today compared yesterday denies any shortness of breath today or chest pain Qualifiers: Dyspnea type: unspecified Qualified Code(s): R06.00 - Dyspnea, unspecified (7) Hyponatremia Priority: Primary Status: Acute Comments: Possibly related to the hydrochlorothiazide and the Prinzide discussed out hydrochlorothiazide (8) Low TSH level Priority: Secondary Status: Chronic Comments: TSH normal at 1.658 (9) Weakness Priority: Primary Status: Acute Comments: He reports feeling well stronger he wants home PT and OT and be discharged with home health (10) Weight loss Priority: Primary Status: Acute Comments: CT scan did not show the reason for weight loss symptoms continue having outpatient workup (11) COPD (chronic obstructive pulmonary disease) Priority: Primary Status: Acute Comments: Patient's improving after she Dr. Blanco him on Spiriva yesterday Qualifiers: COPD type: unspecified COPD Qualified Code(s): J44.9 - Chronic obstructive pulmonary disease, unspecified (12) DM type 2 (diabetes mellitus, type 2) Priority: Secondary Status: Chronic Comments: Stable continue present management A1c 6.0 Qualifiers: Diabetes mellitus [facility] insulin use: without [facility] use Diabetes mellitus complication status: without complication Qualified Code(s): E11.9 - Type 2 diabetes mellitus without complications (13) Hyperlipidemia Priority: Secondary Status: Chronic Comments: Doing well on atorvastatin normal fasting lipid panel Qualifiers: Hyperlipidemia type: unspecified Qualified Code(s): E78.5 - Hyperlipidemia , unspecified (14) Lung nodule Priority: Secondary Status: Acute Comments: Stable lung nodule left lower lobe 4.2 mm (15) Hypertension Priority: Primary Status: Acute Comments: Stable switch from Prinzide to Prinivil because of hyponatremia Qualifiers: Hypertension type: essential hypertension Qualified Code(s): I10 - Essential (primary) hypertension Hospital course: Mr. Russell is a 62 year old male presented with dyspnea which improved initially thought Spiriva was ordered do not see it on the list so improved without it. Reports his weakness is improved to the point where he will wants to be home therapy and home health. Discussed with him the abnormalities in his CT scan stable 4.2 mm left lobe or lower lobe nodule Elizabeth the right lower lobe mass 1.7 x 2 cm that she be followed up, bilateral, common iliac aneurysm on the left 3.1 similar on the right 1.7 cm that is slightly bigger need to be followed up. He was started on iron supplement is a low iron B12 supplement was started because his T12 was 180 hydrochlorothiazide was stopped because of his low sodium lisinopril component was continued and he will need a follow-up on his a BMP to make sure he is not retaining too much potassium. Conesus he was stable enough to be discharged she denied chest pain or shortness of breath or other concerns. Discharge discussed with: patient Time spent discussing smoking cessation with patient: 3 to 10 minutes (Not ready quit) - Time Spent with Patient Total time spent providing and/or coordinating discharge services: Greater than 30 minutes - Discharge Medications Prescriptions: Cyanocobalamin (B-12) [Vitamin B12] 1,000 mcg PO DAILY #30 tablet Iron Polysaccharide Complex [Ferrex 150] 150 mg PO DAILY #30 capsule Lisinopril [Zestril] 40 mg PO DAILY #30 tablet Home Medications: Lovastatin [Altoprev] 40 mg PO DAILY 01/18/18 [History] amLODIPine [Norvasc] 10 mg PO DAILY 01/18/18 [History] metFORMIN [Glucophage] 500 mg PO BIDWM 01/18/18 [History] Cyanocobalamin (B-12) [Vitamin B12] 1,000 mcg PO DAILY #30 tablet 01/20/18 [Rx] Iron Polysaccharide Complex [Ferrex 150] 150 mg PO DAILY #30 capsule 01/20/18 [ Rx] Lisinopril [Zestril] 40 mg PO DAILY #30 tablet 01/20/18 [Rx] Allergies/Adverse Reactions: 3 Allergy/AdvReac Type Severity Reaction Status Date / Time No Known Allergies Allergy Verified 01/18/18 16:56 Date of admission: 01/18/18 18:41 Primary care physician: Nelli Beckett CNP Consults: 01/19/18 10:02 Consult to Occupational Therapy [CONS] Routine Comment: Evaluate, develop and implement POC Reason for Consult: 15 pound weight loss, weakness, dyspnea Does patient have active BEDREST order?: No Is patient medically & hemodynamically stable?: Yes Patient assessed for mobility or mobilized this visit?: Yes Consult to Physical Therapy [CONS] Routine Comment: Evaluate, develop and implement POC Reason for Consult: 15 pound weight loss, weakness, dyspnea Does patient have active BEDREST order?: No Is patient medically & hemodynamically stable?: Yes Patient assessed for mobility or mobilized this visit?: Yes Discharging clinician: Jd Finney Anticipated date of discharge: 01/20/18 - Constitutional Vitals: Temp Pulse Resp BP Pulse Ox 97.6 F 86 18 119/75 97 01/20/18 11:38 01/20/18 11:38 01/20/18 11:38 01/20/18 11:38 01/20/18 13:20 Exam: General: Alert and oriented, no acute distress Lungs: Clear to auscultation bilaterally without wheezing or crackles Heart: Regular rate and rythms without murmer or rubs Abdomen: Soft, nontender, Extremities: no edema, redness - Patient Status Disposition: Home Health Service Condition: Fair Functional capacity at discharge: uses cane/walker Overall status at discharge: patient is not back to baseline (Still weak) - Discharge Instructions Follow Up With: Nelli Beckett, RESIDENTIAL FIELD MANAGER [Primary Care Provider] - - Diet and Activity Activity: as per physical therapy, increase activity as tolerated Diet: diabetic diet
--- NOTE | 2018-01-20 15:09 | Physician Discharge Referral ---
Home Health/Hosp Referral Info Transfer to: Home Health Provider in Charge Post Discharge: PCP - Diagnosis (1) Iron deficiency anemia Priority: Primary Status: Acute (2) B12 deficiency Priority: Primary Status: Acute (3) Common iliac aneurysm Priority: Secondary Status: Chronic (4) Right lower lobe lung mass Priority: Primary Status: Acute (5) Schizophrenia Priority: Secondary Status: Chronic (6) Dyspnea Priority: Primary Status: Acute (7) Hyponatremia Priority: Primary Status: Acute (8) Low TSH level Priority: Secondary Status: Chronic (9) Weakness Priority: Primary Status: Acute (10) Weight loss Priority: Primary Status: Acute (11) COPD (chronic obstructive pulmonary disease) Priority: Secondary Status: Chronic (12) DM type 2 (diabetes mellitus, type 2) Priority: Secondary Status: Chronic (13) Hyperlipidemia Priority: Secondary Status: Chronic (14) Lung nodule Priority: Secondary Status: Chronic (15) Hypertension Priority: Primary Status: Acute - Respiratory Orders None Smoking Cessation: Smoking cessation has been advised. For more information, call the [place] Tobacco Quit Line at 4-987-UBNE-NOW. - Diet/Nutrition Diet/Nutrition Orders: No Concentrated Sweets - Activity Activity Orders: Up ad hortencia (With a cane) - Services Needed Following services are medically necessary services: Nursing, Home Health Aide, Physical Therapy, Occupational Therapy, Med Social Work - Transfer Medications Prescriptions: Cyanocobalamin (B-12) [Vitamin B12] 1,000 mcg PO DAILY #30 tablet Iron Polysaccharide Complex [Ferrex 150] 150 mg PO DAILY #30 capsule Lisinopril [Zestril] 40 mg PO DAILY #30 tablet Home Medications: Lovastatin [Altoprev] 40 mg PO DAILY 01/18/18 [History] amLODIPine [Norvasc] 10 mg PO DAILY 01/18/18 [History] metFORMIN [Glucophage] 500 mg PO BIDWM 01/18/18 [History] Cyanocobalamin (B-12) [Vitamin B12] 1,000 mcg PO DAILY #30 tablet 01/20/18 [Rx] Iron Polysaccharide Complex [Ferrex 150] 150 mg PO DAILY #30 capsule 01/20/18 [ Rx] Lisinopril [Zestril] 40 mg PO DAILY #30 tablet 01/20/18 [Rx] Allergies/Adverse Reactions: 3 Allergy/AdvReac Type Severity Reaction Status Date / Time No Known Allergies Allergy Verified 01/18/18 16:56 Certification: Further, I certify that my clinical findings support that this patient is homebound (i.e. absences from home require considerable and taxing effort and are for medical reasons or faith services or infrequently or short duration when for other reasons) because: General weakness, schizophrenia, lack of resources, severe emphysema Homebound Reason: Leaving home requires considerable and taxing effort due to condition, Severity of cardiac or pulmonary status limits activity tolerance Attestation: My signature below is to certify that this patient is under my care and that I, or nurse practitioner, or a physician's land surveyor assistant working with me, has a face-to -face encounter with this patient.
[2018-01-21] MEDS ORDERED: Iron Polysaccharide Complex 150 MG CAPSULE PO SCH (09:00)
[2018-01-21] MEDS ORDERED: Cyanocobalamin (B-12) 1,000 MCG TABLET PO SCH (09:00)
== END 2018-01-20 16:45 | disposition home health service (06) ==
LOC: INPPIK 16:56 → EMEROOPIK 16:56 → INPPIK 20:00
PROVIDERS: ADMIT Internal Medicine; ATTEND Internal Medicine

== ENCOUNTER 2019-02-05 18:22 | Observation (INO) ==
--- NOTE | 2019-02-05 18:32 | Emergency Department Note ---
Disposition Clinical Impression: Acute exacerbation of chronic obstructive airways disease, Hyponatremia Disposition: Admitted As Inpatient Condition: Fair Referrals: Nelli Beckett SWATCH CUTTER [Primary Care Provider] - Time of Disposition: 19:15 SOB HPI - General Chief Complaint: ED Shortness of Breath/Dyspnea Stated Complaint: SHERLY Time Seen by Provider: 02/05/19 18:29 Source: patient Mode of arrival: private vehicle Limitations: physical limitation Nursing Notes Reviewed: Yes Vital Signs Reviewed: Yes - History of Present Illness Patient presents with increased cough and congestion for 2-3 days. He states the cough is productive of white phlegm. He has had progressive increased shortness of breath and dyspnea on exertion. He states he only has shortness of breath and no chest pain or palpitations. He denies fevers or chills. He has not had any ill exposures. He denies abdominal or back pain. He has not been having nausea, diaphoresis or any lower extremity complaints. He denies any leg swelling, pain or immobilization. Patient continues to smoke. He states he has COPD and he is out of his inhaler. He is not on home oxygen and presents with a saturation of 82% on room air. Pt Subjective Complaint: shortness of breath, cough Onset (ago): day(s) (3) Context: recent illness Severity: moderate, severe Consistency/Duration: gradually worsening Improves with: rest Worsens with: exertion, coughing Known history of: COPD Associated symptoms: Reports: cough, wheezing, sputum production. Denies: chest pain, pain with inspiration, fever, orthopnea, lower extremity pain, polyuria, polydipsia, parasthesias, palpitations, hemoptysis, diaphoresis, nausea/vomiting, syncope, abdominal pain, rash Treatment prior to arrival: none Cough present: Yes Cough Description: Voluntary, Productive, Moist, Rattling, Wheezy Cough Frequency: Intermittent Sputum production: Yes Sputum Amount: Moderate Sputum Color: White - Related Data Home oxygen amount: none Home Medications Medication Instructions Recorded Confirmed Lovastatin [Altoprev] 40 mg PO DAILY 01/18/18 01/18/18 amLODIPine [Norvasc] 10 mg PO DAILY 01/18/18 01/18/18 metFORMIN [Glucophage] 500 mg PO BIDWM 01/18/18 01/18/18 Previous Rx's Medication Instructions Recorded Cyanocobalamin (B-12) [Vitamin B12] 1,000 mcg PO DAILY #30 tablet 01/20/18 Iron Polysaccharide Complex 150 mg PO DAILY #30 capsule 01/20/18 [Ferrex 150] Lisinopril [Zestril] 40 mg PO DAILY #30 tablet 01/20/18 Allergies Allergy/AdvReac Type Severity Reaction Status Date / Time No Known Allergies Allergy Verified 01/18/18 16:56 All systems ED: reviewed and negative except as stated. Past Medical History - Past Medical History Attestation: Yes The following information was validated with the patient. Source: patient, old records reviewed, nursing notes reviewed Medical history: Reports: COPD, diabetes, hypertension. Denies: CHF, hyperlipidemia Surgical history: Reports: other (Left abdominal tumor) Psychiatric history: Reports: anxiety, depression, schizophrenia - Social History Smoking Status: Current every day smoker Smokeless Tobacco Status: No Alcohol use: Reports: rarely Drug use: Reports: none Physical Exam - General Limitations: physical limitation General appearance: alert, in distress - Head Head exam: atraumatic, normocephalic, normal inspection - Eye Eye exam: Present: normal appearance, PERRL, EOMI - ENT ENT exam: normal exam, normal oropharynx, mucous membranes moist - Neck Neck exam: Present: normal inspection, full ROM, trachea midline. Absent: tenderness, lymphadenopathy - Chest Chest inspection: Present: normal inspection, symmetric chest wall rise - Respiratory Respiratory exam: Present: respiratory distress, wheezes, prolonged expiratory phase. Absent: accessory muscle use - Cardiovascular Cardiovascular exam: Present: regular rate, normal rhythm, tachycardia, normal heart sounds - Abdominal Exam Abdominal exam: Present: soft, Non-Tender, normal bowel sounds. Absent: tenderness, distention, guarding, rebound, rigidity - Extremities Exam Extremities exam: Present: normal inspection, full ROM, normal capillary refill. Absent: tenderness, pedal edema, calf tenderness - Expanded Lower Extremity Exam Neurovascular/Tendon exam: Present: normal capillary refill. Absent: motor deficit, sensory deficit, tendon deficit Gait: observed and normal (With assistance) - Back Exam Back exam: Present: normal inspection, full ROM. Absent: tenderness - Neurological Exam Neurological exam: Present: alert, oriented X3 - Psychiatric Psychiatric exam: Present: normal affect, normal mood. Absent: agitated, anxious - Skin Skin exam: Present: warm, dry, intact, cyanosis. Absent: diaphoresis, pallor Course Course Narrative: Patient seen immediately on arrival. He is started on supplemental oxygen and respiratory protocol. He will receive a double DuoNeb aerosol, Solu-Medrol, Rocephin and azithromycin. He understands that he will need inpatient t reatment. He will receive a fluid bolus given his tachycardia. EKG and chest x-ray been ordered. With return of lab work to Dr. Blanco will be contacted for inpatient care. 1913: With return of testing, care is discussed with Dr. Blanco. Verbal orders are obtained for the patient's continuation of treatment on the inpatient floor. Vital Signs Temperature 97.9 F 02/05/19 18:23 Pulse Rate 104 02/05/19 18:23 Respiratory Rate 26 02/05/19 18:23 Blood Pressure 158/96 02/05/19 18:23 O2 Sat by Pulse Oximetry 86 02/05/19 18:23 Temperature 97.9 F 02/05/19 18:23 Pulse Rate 108 02/05/19 18:46 Respiratory Rate 30 02/05/19 18:49 Blood Pressure 171/90 02/05/19 18:46 O2 Sat by Pulse Oximetry 97 02/05/19 18:49 Oxygen Delivery Oxygen Delivery Nasal Cannula Shortness of Breath/Dyspnea - Differential Diagnosis Likely: acute exacerbation of chronic obstructive airways disease, pneumonia, asthma with exacerbation. Unlikely: congestive heart failure - Medical Records Medical records reviewed: Yes I reviewed the patient's medical records. - Lab Data Lab results reviewed: Yes I reviewed the patient's lab results. Result diagrams: 02/05/19 18:39 02/05/19 18:39 Lab Results 02/05/19 02/05/19 02/05/19 Range/Units 18:39 18:39 18:39 WBC 7.3 (4.3-11.1) K/mcL RBC 4.71 (4.19-5.50) M/mcL Hgb 12.5 L (12.9-16.9) g/dL Hct 38.3 (37.5-50.1) % MCV 81.3 L (83.0-100.0) fL MCH 26.5 L (28.0-33.3) pg MCHC 32.6 (31.6-35.5) g/dL RDW 17.0 H (11.5-14.5) % Plt Count 218 (140-400) K/mcL MPV 9.8 (9.4-12.4) fL Immature Gran % 0.3 (0-4) % Seg Neutrophils % 78.2 % Lymphocytes % 9.4 % Monocytes % 9.8 % Eosinophils % 1.7 % Basophils % 0.6 % Neutrophils # 5.7 (1.6-8.9) K/mcL Lymphocytes # 0.7 (0.6-4.6) K/mcL Monocytes # 0.7 (0.0-1.3) K/mcL Eosinophils # 0.1 (0.0-0.6) K/mcL Basophils # 0.0 (0.0-0.2) K/mcL PT 9.9 (9.4-12.1) Seconds INR 0.9 APTT 31.9 (26.0-36.0) Seconds Sample Site ABG pH (7.32-7.45) pH Units ABG pCO2 (35-45) mmHg ABG pO2 (85-104) mmHg ABG HCO3 (21-27) mEq/L ABG Total CO2 (20-26) mEq/L ABG O2 Saturation (95-98) % ABG Base Excess (-2 to 3) mEq/L Shaheed Test O2 Delivery Device Inspired O2 (1-15=lpm [id number]=%) Sodium 123 L (136-145) mEq/L Potassium 4.1 (3.5-5.1) mEq/L Chloride 84 L (98-107) mEq/L Carbon Dioxide 36 H (23-29) mEq/L BUN 11 (8-23) mg/dL Creatinine 0.70 (0.70-1.30) mg/dL Est GFR ( Amer) > 60 (> 60) Est GFR (Non-Af Amer) > 60 (> 60) BUN/Creatinine Ratio 16 (6-26) Glucose 101 (70-105) mg/dL Calculated Osmolality 256 L (280-300) Lactic Acid (0.5-2.2) mmol/L Calcium 8.8 (8.6-10.3) mg/dL Total Bilirubin 0.3 (0.3-1.0) mg/dL Direct Bilirubin 0.1 (0.0-0.2) mg/dL Indirect Bilirubin 0.2 (0.0-1.2) mg/dL AST 19 (13-39) Units/L ALT 9 (7-52) Units/L Alkaline Phosphatase 67 (34-104) Units/L Troponin I < 0.03 (< 0.04) ng/mL B-Natriuretic Peptide (Less than 100) pg/mL Serum Total Protein 6.7 (6.4-8.9) g/dL Albumin 3.9 (3.5-5.7) g/dL Globulin 2.8 (2.4-3.5) g/dL Albumin/Globulin Ratio 1.4 (1.1-2.2) 02/05/19 02/05/19 02/05/19 Range/Units 18:39 18:39 18:56 WBC (4.3-11.1) K/mcL RBC (4.19-5.50) M/mcL Hgb (12.9-16.9) g/dL Hct (37.5-50.1) % MCV (83.0-100.0) fL MCH (28.0-33.3) pg MCHC (31.6-35.5) g/dL RDW (11.5-14.5) % Plt Count (140-400) K/mcL MPV (9.4-12.4) fL Immature Gran % (0-4) % Seg Neutrophils % % Lymphocytes % % Monocytes % % Eosinophils % % Basophils % % Neutrophils # (1.6-8.9) K/mcL Lymphocytes # (0.6-4.6) K/mcL Monocytes # (0.0-1.3) K/mcL Eosinophils # (0.0-0.6) K/mcL Basophils # (0.0-0.2) K/mcL PT (9.4-12.1) Seconds INR APTT (26.0-36.0) Seconds Sample Site R Radial ABG pH 7.34 (7.32-7.45) pH Units ABG pCO2 66 H (35-45) mmHg ABG pO2 82 L (85-104) mmHg ABG HCO3 35 H (21-27) mEq/L ABG Total CO2 37 H (20-26) mEq/L ABG O2 Saturation 95 (95-98) % ABG Base Excess 7 H (-2 to 3) mEq/L Shaheed Test Positive O2 Delivery Device Cannula Inspired O2 2.0 (1-15=lpm eg48-194=%) Sodium (136-145) mEq/L Potassium (3.5-5.1) mEq/L Chloride (98-107) mEq/L Carbon Dioxide (23-29) mEq/L BUN (8-23) mg/dL Creatinine (0.70-1.30) mg/dL Est GFR ( Amer) (> 60) Est GFR (Non-Af Amer) (> 60) BUN/Creatinine Ratio (6-26) Glucose (70-105) mg/dL Calculated Osmolality (280-300) Lactic Acid 0.4 L (0.5-2.2) mmol/L Calcium (8.6-10.3) mg/dL Total Bilirubin (0.3-1.0) mg/dL Direct Bilirubin (0.0-0.2) mg/dL Indirect Bilirubin (0.0-1.2) mg/dL AST (13-39) Units/L ALT (7-52) Units/L Alkaline Phosphatase (34-104) Units/L Troponin I (< 0.04) ng/mL B-Natriuretic Peptide 25 (Less than 100) pg/mL Serum Total Protein (6.4-8.9) g/dL Albumin (3.5-5.7) g/dL Globulin (2.4-3.5) g/dL Albumin/Globulin Ratio (1.1-2.2) - Radiology Data Radiology results reviewed: Yes I reviewed the patient's radiology results. Single view chest x-rays performed. This shows significant rotation without focal infiltrate, effusion or mass. He is hyperexpanded consistent with COPD. He is also kyphoscoliotic. No other acute abnormalities are seen. This is on my interpretation. Impressions Chest X-Ray 02/05/19 18:33 IMPRESSION: Within the limitations of the exam no acute cardiopulmonary process noted. D/ / 02/05/2019 19:09:14 Yony García MD / Robina Powers Interpreting Provider: Yony García MD - EKG Data EKG attestation: Yes I reviewed and interpreted this EKG. EKG shows normal: Reports: sinus rhythm, axis, intervals, QRS complexes, ST-T waves Rate: Reports: tachycardia (107) Voltage: Reports: c/w LVH Interpretation: Reports: no acute changes Critical Care Time Critical Care Time: Yes Total Critical Care Time: 35 Attestation: As this patient did present with signs and symptoms of potential life- threatening illness requiring my urgent intervention, total critical care time in this patient's care has been 35 minutes, not withstanding separately reportable procedures.
[2019-02-05] MEDS ORDERED: cefTRIAXone 2,000 MG in Water for inj. (sterile) 10 ML IVP ONE (18:33)
[2019-02-05] MEDS ORDERED: methylPREDNISolone 125 MG/2 ML VIAL IVP ONE (18:33)
[2019-02-05] MEDS ORDERED: 0.9 % Sodium Chloride 1,000 ML IVC ONE (18:33)
[2019-02-05] MEDS ORDERED: Azithromycin 500 MG in D5% in Water 250 ML IVPB ONE (18:33)
[2019-02-05] MEDS ORDERED: Ipratropium/Albuterol Neb 3 ML IH ONE ×2 (18:33→19:40)
[2019-02-05 18:48] LABS: Basophils % 0.6 %; Eosinophils # 0.1 K/mcL (0.0-0.6); Eosinophils % 1.7 %; Hematocrit 38.3 % (37.5-50.1); Hemoglobin 12.5 g/dL (12.9-16.9); Immature Granulocytes % 0.3 % (0-4); Lymphocytes # 0.7 K/mcL (0.6-4.6); Lymphocytes % 9.4 %; Mean Corpuscular HGB Conc 32.6 g/dL (31.6-35.5); Mean Corpuscular Hemoglobin 26.5 pg (28.0-33.3); Mean Corpuscular Volume 81.3 fL (83.0-100.0); Mean Platelet Volume 9.8 fL (9.4-12.4); Monocytes # 0.7 K/mcL (0.0-1.3); Monocytes % 9.8 %; Neutrophils # 5.7 K/mcL (1.6-8.9); Platelet Count 218 K/mcL (140-400); Red Blood Count 4.71 M/mcL (4.19-5.50); Segmented Neutrophils % 78.2 %; White Blood Count 7.3 K/mcL (4.3-11.1)
[2019-02-05 18:57] LABS: INR 0.9; Prothrombin Time 9.9 Seconds (9.4-12.1)
[2019-02-05 18:59] LABS: ABG Base Excess 7 mEq/L (-2 to 3); ABG HCO3 35 mEq/L (21-27); ABG Oxygen Saturation 95 % (95-98); ABG PCO2 66 mmHg (35-45); ABG PH 7.34 pH Units (7.32-7.45); ABG PO2 82 mmHg (85-104); ABG TCO2 37 mEq/L (20-26)
[2019-02-05 19:00] LABS: Activated Partial Thrombo Time 31.9 Seconds (26.0-36.0)
[2019-02-05] MEDS ORDERED: cefTRIAXone 2,000 MG in Water for inj. (sterile) 20 ML IVP ONE (19:00)
[2019-02-05] MEDS ORDERED: Water for inj. (sterile) 0 ML ONE (19:02)
[2019-02-05 19:05] LABS: Alanine Aminotransferase 9 Units/L (7-52); Albumin 3.9 g/dL (3.5-5.7); Albumin/Globulin Ratio 1.4 (1.1-2.2); Alkaline Phosphatase 67 Units/L (34-104); Aspartate Amino Transferase 19 Units/L (13-39); BUN/Creatinine Ratio 16 (6-26); Bilirubin,Direct 0.1 mg/dL (0.0-0.2); Bilirubin,Indirect 0.2 mg/dL (0.0-1.2); Bilirubin,Total 0.3 mg/dL (0.3-1.0); Blood Urea Nitrogen 11 mg/dL (8-23); Calcium 8.8 mg/dL (8.6-10.3); Carbon Dioxide 36 mEq/L (23-29); Chloride 84 mEq/L (98-107); Globulin 2.8 g/dL (2.4-3.5); Glucose 101 mg/dL (70-105); Osmolality,Calculated 256 (280-300); Potassium 4.1 mEq/L (3.5-5.1); Sodium 123 mEq/L (136-145); Total Protein 6.7 g/dL (6.4-8.9); eGFR For African Americans > 60 (> 60); eGFR For Non-African Americans > 60 (> 60)
[2019-02-05 19:08] LABS: Troponin I < 0.03 ng/mL (< 0.04)
[2019-02-05] MEDS ORDERED: 0.9 % Sodium Chloride 500 ML IVC ONE (19:09)
[2019-02-05] MEDS ORDERED: 0.9 % Sodium Chloride 1,000 ML IVC SCH (19:15)
[2019-02-05] MEDS ORDERED: *HR* Dextrose 50 % in Water (Syg) 50 ML SYRINGE IVP PRN (21:07)
[2019-02-05] MEDS ORDERED: D5% in Water 1,000 ML IVC PRN (21:07)
[2019-02-05] MEDS ORDERED: MOM Conc 10 ML UD.LIQ PO PRN (21:07)
[2019-02-05] MEDS ORDERED: Mag Hydrox/Al Hydrox/Simeth 30 ML UDC PO PRN (21:07)
[2019-02-05] MEDS ORDERED: Dextrose Gel 15 GM/37.5 ML TUBE PO PRN ×2 (21:07)
[2019-02-05] MEDS ORDERED: Naloxone 0.4 MG/ML INJ IVP PRN (21:07)
[2019-02-05] MEDS ORDERED: Ondansetron ODT 4 MG TAB.RAPDIS SL PRN (21:07)
[2019-02-05] MEDS: Ipratropium/Albuterol Neb 3 ML IH SCH (21:58)
[2019-02-05] MEDS: 0.9 % Sodium Chloride 1,000 ML IVC SCH (22:33)
[2019-02-06] MEDS: Ipratropium/Albuterol Neb 3 ML IH SCH ×4 (03:48→21:44)
[2019-02-06 05:55] LABS: BUN/Creatinine Ratio 15 (6-26); Blood Urea Nitrogen 10 mg/dL (8-23); Calcium 8.5 mg/dL (8.6-10.3); Carbon Dioxide 34 mEq/L (23-29); Chloride 92 mEq/L (98-107); Glucose 195 mg/dL (70-105); Osmolality,Calculated 276 (280-300); Potassium 4.4 mEq/L (3.5-5.1); Sodium 131 mEq/L (136-145); eGFR For African Americans > 60 (> 60); eGFR For Non-African Americans > 60 (> 60)
[2019-02-06] MEDS: 0.9 % Sodium Chloride 1,000 ML IVC SCH (06:33)
[2019-02-06] MEDS: Albuterol 2.5 MG/3 ML NEBULIZER IH PRN (06:38)
[2019-02-06] MEDS: predniSONE 20 MG TABLET PO SCH ×2 (07:53→16:11)
[2019-02-06] MEDS: Insulin LISPRO 300 UNITS/3 ML VIAL SQ SCH ×3 (07:53→16:01)
--- NOTE | 2019-02-06 12:41 | Internal Med History&Physical ---
Date of Encounter: 02/06/19 Time of Encounter: 12:15 Assessment and Plan (1) Acute exacerbation of chronic obstructive airways disease Current visit: Yes Status: Acute He was started on Rocephin and Zithromax with Solu-Medrol in emergency room. Nebulizer treatments have been ordered as needed. Lactobacillus will be added. (2) Right lower lobe lung mass Current visit: No Status: Acute Chest CT will be ordered to follow-up. (3) Hypertension Current visit: No Status: Chronic Continue amlodipine and lisinopril. Qualifiers: Hypertension type: essential hypertension Qualified Code(s): I10 - Essential (primary) hypertension (4) Hyponatremia Current visit: Yes Status: Acute Present on all labs since June 2017. He is asymptomatic. Sodium has risen to 131 today. (5) DM type 2 (diabetes mellitus, type 2) Current visit: No Status: Chronic Check hemoglobin A1c in a.m. Continue Glucophage and do Accu-Cheks with SSI. 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 Qualifiers: Iron deficiency anemia type: unspecified iron deficiency Qualified Code(s): D50.9 - Iron deficiency anemia, unspecified (7) B12 deficiency Current visit: No Status: Acute Anemia testing in a.m. (8) Schizophrenia Current visit: No Status: Chronic No psychiatric medication is listed on his home medicine list. Continue to monitor. Qualifiers: Schizophrenia type: unspecified Qualified Code(s): F20.9 - Schizophrenia, unspecified Internal Medicine - H&P: HPI Chief complaint: Cough and dyspnea Admitted From: Emergency Dept Plans for Post Hospital Care: Home History of present illness: Mr. Russell is a 63 year old male who came to emergency room stating he had 3 day history of increased dyspnea with progressive minimally productive cough. He denies hemoptysis fevers chills vomiting diarrhea or pain. He felt aggressively weaker so came to emergency room. He was evaluated and was felt to have exacerbation of COPD. [facility]. He states he feels less dyspneic at present time but not back to his baseline. Respiratory history is significant for having smoked since age 17 up to 3 packs per day. He has not had PFTs and does not use home oxygen. Most recent chest CT 01/18/2018 showed stable 4.2 mm left lower lobe pleural-based nodule and a right lower lobe pleural-based mass measuring 1.7 x 2 cm. Follow-up was imaging recommended but has not been done per his report. He is uncertain if he has had OUSMANE testing. Past Med Surg Social Fam HX - Past Medical History Medical history: COPD, diabetes, hypertension Additional medical history: PT UNABLE TO GIVE ACCURATE MEDICAL HISTORY Psychiatric history: anxiety, depression, schizophrenia - Past Surgical History Surgical History: other Additional surgical history: tumor removed from left side of abdomen - Social History Smoking Status: Current every day smoker Smokeless Tobacco Status: No Alcohol use: rarely Drug use: none Internal Medicine - H&P: Meds Lovastatin [Altoprev] 40 mg PO DAILY 01/18/18 [History] amLODIPine [Norvasc] 10 mg PO DAILY 01/18/18 [History] metFORMIN [Glucophage] 500 mg PO BIDWM 01/18/18 [History] Cyanocobalamin (B-12) [Vitamin B12] 1,000 mcg PO DAILY #30 tablet 01/20/18 [Rx] Iron Polysaccharide Complex [Ferrex 150] 150 mg PO DAILY #30 capsule 01/20/18 [Rx] Lisinopril [Zestril] 40 mg PO DAILY #30 tablet 01/20/18 [Rx] Allergy/AdvReac Type Severity Reaction Status Date / Time No Known Allergies Allergy Verified 01/18/18 16:56 All Systems PM: A 10-system review of systems was performed and is negative for pertinent findings except as documented above in the HPI. Review of systems: Review of systems from his December 2017 [facility] hospitalization were reviewed and revised as below. Gen.: His weight decreased from 66.5 kg on 07/18/2017 to 59.534 kg December 2017. It has been stable since then with weight 60.9 kg today. Cardiovascular: He has history of hypertension but denies SD heart failure or angina DVT or pulmonary embolism. He does get dyspneic on exertion. 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 Respiratory: As per history of present illness GI: He denies disorders of his liver gallbladder or exocrine pancreas : He denies hematuria dysuria or kidney stones. 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 He reports pathology was benign. Neurologic: He denies large distribution strokes or seizures. Endocrine: He was diagnosed with DM 2 approximately 2001. He denies thyroid disease or hyperlipidemia Hematology/oncology: He denies blood disorders or cancers. He has history of anemia with iron and B12 deficiency documented. He does not take supplements of these at this time. Psychiatric: He has anxiety depression and schizophrenia. He follows with mental health clinic. Musculoskeletal: He reports occasional pain in his hand but denies significant arthritis gout or other bone joint or muscle disorders. - Constitutional Vitals: Temp Pulse Resp BP Pulse Ox 98.6 F 97 22 123/74 96 02/06/19 10:26 02/06/19 10:26 02/06/19 10:26 02/06/19 10:02/06/19 10:26 Exam: Gen.: He is a well-developed well-nourished male sitting in a chair at bedside who appears slightly dyspneic HEENT: Head is atraumatic and normocephalic. Eyes: EOMI. There is no scleral icterus. Mouth: Mucosa is moist. Neck: Supple and nontender. There is no thyromegaly or adenopathy noted. Heart: Regular without murmurs gallops or ectopics. Rate is approximately 96/m. Lungs: He has prolonged expiratory phase. No significant wheezing or crackles are heard. Abdomen: Soft and nontender. Exam is limited because he is in the seated pos ition. He has a well-healed upper abdominal transverse scar. Extremities: There is no cyanosis edema or clubbing noted. Dorsalis pedis and posterior tibial pulses are trace palpable bilaterally. He has onychomycosis of most toenails. He has minimal DJD changes of his hands. Neurologic: Mental status: He is talkative and seems to be a fair to good historian. He has a slight speech impediment. Cranial nerves: Smile is symmetric. Forehead wrinkles bilaterally. Tongue protrudes midline. EOMI. Motor: There is no pronator drift. There is no cogwheeling rigidity on passive range of motion of his wrist or elbows. Cerebellar: Finger to nose is intact bilaterally. Skin: Warm and dry Internal Med - H&P Results - Labs CBC & Chem 7: 02/05/19 18:39 02/06/19 04:45 Labs: Short CBC 02/05/19 Range/Units 18:39 WBC 7.3 (4.3-11.1) K/mcL Hgb 12.5 L (12.9-16.9) g/dL Hct 38.3 (37.5-50.1) % Plt Count 218 (140-400) K/mcL Neutrophils # 5.7 (1.6-8.9) K/mcL BMP 02/05/19 02/06/19 18:39 04:45 Sodium 123 L 131 L Potassium 4.1 4.4 Chloride 84 L 92 L Carbon Dioxide 36 H 34 H BUN 11 10 Creatinine 0.70 0.67 L Glucose 101 195 H Calcium 8.8 8.5 L Cardiac Enzymes 02/05/19 Range/Units 18:39 Troponin I < 0.03 (< 0.04) ng/mL Liver Function 02/05/19 Range/Units 18:39 Total Bilirubin 0.3 (0.3-1.0) mg/dL Direct Bilirubin 0.1 (0.0-0.2) mg/dL AST 19 (13-39) Units/L ALT 9 (7-52) Units/L Alkaline Phosphatase 67 (34-104) Units/L Albumin 3.9 (3.5-5.7) g/dL - ABG Interpretation ABG results: 02/05/19 18:56 ABG pH 7.34 ABG pCO2 66 H ABG pO2 82 L ABG HCO3 35 H ABG Total CO2 37 H ABG O2 Saturation 95 ABG Base Excess 7 H - Impressions ITS Impressions Chest X-Ray 02/05/19 18:33 IMPRESSION: Within the limitations of the exam no acute cardiopulmonary process noted. D/ / 02/05/2019 19:09:14 Yony García MD / Robina Powers Interpreting Provider: Yony García MD
[2019-02-06] MEDS: amLODIPine 5 MG TABLET PO SCH (13:32)
[2019-02-06] MEDS: Lisinopril 20 MG TABLET PO SCH (13:32)
[2019-02-06] MEDS: cefTRIAXone 2,000 MG in 0.9 % Sodium Chloride Mini Bag 100 ML IVPB SCH (16:10)
--- NOTE | 2019-02-06 16:33 | Electrocardiograph Report ---
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
[2019-02-06] MEDS: Azithromycin 500 MG in D5% in Water 250 ML IVPB SCH (17:25)
[2019-02-06] MEDS: Lactobacillus 1 EACH CAP.SPRINK PO SCH (20:08)
[2019-02-07] MEDS: Ipratropium/Albuterol Neb 3 ML IH SCH ×2 (04:39→10:23)
[2019-02-07] MEDS: Albuterol 2.5 MG/3 ML NEBULIZER IH PRN ×2 (06:42→16:45)
[2019-02-07 07:04] LABS: Basophils % 0.2 %; Eosinophils % 0.1 %; Hematocrit 33.6 % (37.5-50.1); Hemoglobin 10.7 g/dL (12.9-16.9); Immature Granulocytes % 0.5 % (0-4); Lymphocytes # 1.1 K/mcL (0.6-4.6); Lymphocytes % 9.9 %; Mean Corpuscular HGB Conc 31.8 g/dL (31.6-35.5); Mean Corpuscular Hemoglobin 26.6 pg (28.0-33.3); Mean Corpuscular Volume 83.4 fL (83.0-100.0); Mean Platelet Volume 9.5 fL (9.4-12.4); Monocytes # 0.9 K/mcL (0.0-1.3); Monocytes % 8.7 %; Neutrophils # 8.5 K/mcL (1.6-8.9); Platelet Count 200 K/mcL (140-400); Red Blood Count 4.03 M/mcL (4.19-5.50); Red Cell Distribution Width 17.3 % (11.5-14.5); Segmented Neutrophils % 80.6 %; White Blood Count 10.6 K/mcL (4.3-11.1)
[2019-02-07 07:40] LABS: BUN/Creatinine Ratio 20 (6-26); Blood Urea Nitrogen 9 mg/dL (8-23); Calcium 8.3 mg/dL (8.6-10.3); Carbon Dioxide 35 mEq/L (23-29); Chloride 94 mEq/L (98-107); Glucose 86 mg/dL (70-105); Osmolality,Calculated 268 (280-300); Potassium 4.5 mEq/L (3.5-5.1); Sodium 130 mEq/L (136-145); eGFR For African Americans > 60 (> 60); eGFR For Non-African Americans > 60 (> 60)
[2019-02-07] MEDS: Insulin LISPRO 300 UNITS/3 ML VIAL SQ SCH ×3 (07:42→17:08)
[2019-02-07] MEDS: Lisinopril 20 MG TABLET PO SCH (08:25)
[2019-02-07] MEDS: Lactobacillus 1 EACH CAP.SPRINK PO SCH ×2 (08:25→19:28)
[2019-02-07] MEDS: predniSONE 20 MG TABLET PO SCH ×2 (08:25→17:26)
[2019-02-07] MEDS: amLODIPine 5 MG TABLET PO SCH (08:26)
[2019-02-07 08:49] LABS: % Iron Saturation 4 % (20-55); Iron 14 mcg/dL (65-175); Transferrin 229 mg/dL (203-362)
[2019-02-07 09:07] LABS: Ferritin 13 ng/mL (20-250)
[2019-02-07 09:11] LABS: Estimated Average Glucose 134 mg/dl
[2019-02-07 09:12] LABS: Folate 9.9 ng/mL (3.0-16.0)
--- NOTE | 2019-02-07 11:30 | Internal Med Progress Note ---
Date of Encounter: 02/07/19 Time of Encounter: 11:20 - Assessment and plan (1) Acute exacerbation of chronic obstructive airways disease Current Visit: Yes Status: Acute Assessment and plan: February 07. Continue Rocephin and Zithromax with lactobacillus and prednisone. He declined chest CT yesterday. (2) Right lower lobe lung mass Current Visit: No Status: Acute Assessment and plan: February 07. He declined chest CT yesterday. This can be done as outpatient if he agrees. (3) Hypertension Current Visit: No Status: Chronic Assessment and plan: February 07. Continue amlodipine and lisinopril. Qualifiers: Hypertension type: essential hypertension Qualified Code(s): I10 - Esskellie tial (primary) hypertension (4) Hyponatremia Current Visit: Yes Status: Acute Assessment and plan: February 07. Sodium level stable at 130. (5) DM type 2 (diabetes mellitus, type 2) Current Visit: No Status: Chronic Assessment and plan: February 07. Hemoglobin A1c satisfactory at 6.3%. Continue Glucophage and Accu- Cheks with SSI. Qualifiers: Diabetes mellitus mcfp insulin use: without mcfp use Diabetes mellitus complication status: without complication Qualified Code(s): E11.9 - Type 2 diabetes mellitus without complications (6) Iron deficiency anemia Current Visit: No Status: Acute Assessment and plan: February 07. Hemoglobin has decreased to 10.7 today. Anemia testing showed iron 14, transferrin saturation 4%, transferrin 229, ferritin 13, B12 285, and folate 9.9. He will start oral ferrous sulfate with ascorbic acid in a.m. Stool guaiac will be ordered. Qualifiers: Iron deficiency anemia type: unspecified iron deficiency Qualified Code(s): D50.9 - Iron deficiency anemia, unspecified (7) B12 deficiency Current Visit: No Status: Acute Assessment and plan: February 07. B12 level normal at 285. (8) Schizophrenia Current Visit: No Status: Chronic Assessment and plan: February 07. No medication listed for Rx at this time. Qualifiers: Schizophrenia type: unspecified Qualified Code(s): F20.9 - Schizophrenia, unspecified - Subjective Interval history: February 07. He has no new complaints. He thinks his dyspnea has lessened. He was placed on Oxy mask for decreased oxygen saturation earlier. - Constitutional Vitals: Temp Pulse Resp BP Pulse Ox 96.5 F L 95 30 126/77 98 08/15/19 06:19 02/07/19 06:19 02/07/19 10:23 02/07/19 06:19 02/07/19 10:23 Exam: He is sitting in a chair at bedside resting comfortably. His affect is somewhat flat. Lungs show diminished breath sounds but no significant rhonchi. I reviewed his medications and lab results. Internal Medicine: Result - Labs CBC & Chem 7: 02/07/19 06:36 02/07/19 06:36 Labs: Short CBC 02/07/19 Range/Units 06:36 WBC 10.6 (4.3-11.1) K/mcL Hgb 10.7 L D (12.9-16.9) g/dL Hct 33.6 L (37.5-50.1) % Plt Count 200 (140-400) K/mcL Neutrophils # 8.5 (1.6-8.9) K/mcL BMP 02/07/19 06:36 Sodium 130 L Potassium 4.5 Chloride 94 L Carbon Dioxide 35 H BUN 9 Creatinine 0.45 L Glucose 86 Calcium 8.3 L - ABG Interpretation ABG results: ABG ABG pH 7.34 pH Units (7.32-7.45) 02/05/19 18:56 ABG pCO2 66 mmHg (35-45) H 02/05/19 18:56 ABG pO2 82 mmHg (85-104) L 02/05/19 18:56 ABG O2 Saturation 95 % (95-98) 02/05/19 18:56 PT/INR, D-dimer PT 9.9 Seconds (9.4-12.1) 02/05/19 18:39 Consult Discharge Plan - Plan
[2019-02-07] MEDS: cefTRIAXone 2,000 MG in 0.9 % Sodium Chloride Mini Bag 100 ML IVPB SCH (17:26)
[2019-02-07] MEDS ORDERED: D5% in Water 250 ML ONE (17:41)
[2019-02-07] MEDS: Azithromycin 500 MG in D5% in Water 250 ML IVPB SCH (18:05)
[2019-02-08 05:42] LABS: Basophils % 0.2 %; Eosinophils % 0.1 %; Hematocrit 33.1 % (37.5-50.1); Hemoglobin 10.6 g/dL (12.9-16.9); Immature Granulocytes % 0.2 % (0-4); Lymphocytes # 1.3 K/mcL (0.6-4.6); Lymphocytes % 14.6 %; Mean Corpuscular Hemoglobin 26.9 pg (28.0-33.3); Mean Platelet Volume 9.6 fL (9.4-12.4); Monocytes # 0.8 K/mcL (0.0-1.3); Monocytes % 8.5 %; Platelet Count 211 K/mcL (140-400); Red Blood Count 3.94 M/mcL (4.19-5.50); Red Cell Distribution Width 17.2 % (11.5-14.5); Segmented Neutrophils % 76.4 %; White Blood Count 9.1 K/mcL (4.3-11.1)
[2019-02-08] MEDS ORDERED: Ascorbic Acid 500 MG TABLET PO SCH (06:30)
[2019-02-08 06:38] LABS: BUN/Creatinine Ratio 22 (6-26); Blood Urea Nitrogen 10 mg/dL (8-23); Calcium 8.3 mg/dL (8.6-10.3); Carbon Dioxide 43 mEq/L (23-29); Chloride 89 mEq/L (98-107); Glucose 88 mg/dL (70-105); Osmolality,Calculated 268 (280-300); Potassium 4.6 mEq/L (3.5-5.1); Sodium 130 mEq/L (136-145); eGFR For African Americans > 60 (> 60); eGFR For Non-African Americans > 60 (> 60)
[2019-02-08] MEDS: Insulin LISPRO 300 UNITS/3 ML VIAL SQ SCH ×3 (07:21→16:30)
[2019-02-08] MEDS: Lisinopril 20 MG TABLET PO SCH (08:14)
[2019-02-08] MEDS: predniSONE 20 MG TABLET PO SCH (08:14)
[2019-02-08] MEDS: Lactobacillus 1 EACH CAP.SPRINK PO SCH (08:14)
[2019-02-08] MEDS: amLODIPine 5 MG TABLET PO SCH (08:14)
[2019-02-08 14:56] VITALS: BP 111/67
--- NOTE | 2019-02-08 16:23 | Discharge Summary ---
Orders not resulted at time of discharge: Pending orders 02/05/19 18:41 Culture,Blood [BC] Stat Date of Encounter: 02/08/19 Time of Encounter: 16:00 - Discharge Diagnosis (1) Acute exacerbation of chronic obstructive airways disease Priority: Primary Status: Acute (2) Right lower lobe lung mass Priority: Secondary Status: Acute (3) Hypertension Priority: Secondary Status: Chronic Qualifiers: Hypertension type: essential hypertension Qualified Code(s): I10 - Essential (primary) hypertension (4) Hyponatremia Priority: Secondary Status: Chronic (5) DM type 2 (diabetes mellitus, type 2) Priority: Secondary Status: Chronic Qualifiers: Diabetes mellitus 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 Russell is a 63 year old male who came to emergency room stating he had 3 day history of increased dyspnea with progressive minimally productive cough. He denies hemoptysis fevers chills vomiting diarrhea or pain. He felt progressively weaker so came to emergency room. He was evaluated and was felt to have exacerbation of COPD. He was admitted to [facility] floor for ongoing care needs. Initial orders were written by the emergency room physician. I saw him on February 06 and performed the history and physical. He was started on Rocephin and Zithromax in emergency room with steroids. Lactobacillus was added. He had good clinical response with decreased wheezing and less dyspnea by day of discharge. WBC remained normal at 9.1 on day of discharge with no left shift on differential. Chest CT was ordered to follow-up on previously seen right lower lobe lung mass. He declined the study. He stated he would consider doing it as an outpatient. His PCP can order this. Sodium louis to 130 by day of discharge. He remained asymptomatic. Hemoglobin A1c returned satisfactory at 6.3%. Anemia testing showed iron 14, transferrin saturation 4%, transferrin 229, ferritin 13, B12 285, and folate 9.9. He was started on oral ferrous sulfate with ascorbic acid. Stool guaiac was ordered but not collected during hospitalization. His PCP can do it a workup for the etiology of the anemia. Room air oximetry showed saturation decreasing to 86% prior to ambulation. He will be prescribed oxygen 3 L/m by [employer] 16/01 with portable gas and concentrator. Qualifying diagnosis is COPD with hypoxemia not remedied by use of bronchodilators. He was instructed to discontinue smoking. On February 08 he felt improved and stable for discharge home. He will follow with his PCP Nelli Beckett CNP within 1 week. - Time Spent with Patient Total time spent providing and/or coordinating discharge services: - Discharge Medications Prescriptions: New Cefuroxime PO [Ceftin] 500 mg PO Q12HR #6 tablet Lactobacillus [Culturelle] 1 each PO BID #6 cap.sprink predniSONE [PredniSONE] 10 mg PO BIDWM #6 tablet Azithromycin [Zithromax] 250 mg PO DAILY #3 tablet Continued metFORMIN [Glucophage] 500 mg PO BIDWM Lovastatin [Altoprev] 40 mg PO DAILY amLODIPine [Norvasc] 10 mg PO DAILY Cyanocobalamin (B-12) [Vitamin B12] 1,000 mcg PO DAILY #30 tablet Iron Polysaccharide Complex [Ferrex 150] 150 mg PO DAILY #30 capsule Lisinopril [Zestril] 40 mg PO DAILY #30 tablet Home Medications: Lovastatin [Altoprev] 40 mg PO DAILY 01/18/18 [History] amLODIPine [Norvasc] 10 mg PO DAILY 01/18/18 [History] metFORMIN [Glucophage] 500 mg PO BIDWM 01/18/18 [History] Cyanocobalamin (B-12) [Vitamin B12] 1,000 mcg PO DAILY #30 tablet 01/20/18 [Rx] Iron Polysaccharide Complex [Ferrex 150] 150 mg PO DAILY #30 capsule 01/20/18 [Rx] Lisinopril [Zestril] 40 mg PO DAILY #30 tablet 01/20/18 [Rx] Azithromycin [Zithromax] 250 mg PO DAILY #3 tablet 02/08/19 [Rx] Cefuroxime PO [Ceftin] 500 mg PO Q12HR #6 tablet 02/08/19 [Rx] Lactobacillus [Culturelle] 1 each PO BID #6 cap.sprink 08/16/19 [Rx] predniSONE [PredniSONE] 10 mg PO BIDWM #6 tablet 02/08/19 [Rx] Allergies/Adverse Reactions: Allergy/AdvReac Type Severity Reaction Status Date / Time No Known Allergies Allergy Verified 01/18/18 16:56 Date of admission: 02/05/19 20:38 Primary care physician: Nelli Beckett CNP Consults: 02/06/19 02:06 Consult to Planting Material Unloader [CONS] Routine Reason for SW Consult: discharge planning 02/08/19 10:54 Consult to Occupational Therapy [CONS] Routine Comment: Evaluate, develop and implement POC Reason for Consult: weakness Does patient have active BEDREST order?: No Is patient medically & hemodynamically stable?: Yes Patient assessed for mobility or mobilized this visit?: Yes Consult to Physical Therapy [CONS] Routine Comment: Evaluate, develop and implement POC Reason for Consult: weaknesss Does patient have active BEDREST order?: No Is patient medically & hemodynamically stable?: Yes Patient assessed for mobility or mobilized this visit?: Yes - Constitutional Vitals: Temp Pulse Resp BP Pulse Ox 98.7 F 77 16 111/67 96 02/08/19 14:55 02/08/19 14:55 02/08/19 14:55 02/08/19 14:55 02/08/19 14:55 - Patient Status Disposition: Home Health Service Condition: Fair - Discharge Instructions Follow Up With: Nelli Beckett CNP [Primary Care Provider] - 1 week Forms: ED Satisfaction Letter - Diet and Activity Activity: wear oxygen at all times Diet: diabetic diet - VTE Documentation of Mechanical Device: Graduated compression elastic hosiery
--- NOTE | 2019-02-08 16:30 | Physician Discharge Referral ---
Home Health/Hosp Referral Info Transfer to: Home Health Attending Provider: Francis Provider in Charge Post Discharge: PCP (Nelli Beckett CNP) - Diagnosis (1) Acute exacerbation of chronic obstructive airways disease Priority: Primary Status: Acute (2) Right lower lobe lung mass Priority: Secondary Status: Acute (3) Hypertension Priority: Secondary Status: Chronic (4) Hyponatremia Priority: Secondary Status: Chronic (5) DM type 2 (diabetes mellitus, type 2) Priority: Secondary Status: Chronic (6) Iron deficiency anemia Priority: Secondary Status: Acute (7) B12 deficiency Priority: Secondary Status: Acute (8) Schizophrenia Priority: Secondary Status: Chronic - Respiratory Orders Oxygen / L per min (Wear oxygen 24/7 at 3 L/m.) Smoking Cessation: Smoking cessation has been advised. For more information, call the [employer] Quit Line at 8-885-OQRE-NOW. - Diet/Nutrition Diet/Nutrition Orders: No Concentrated Sweets - Activity Activity Orders: Walker - Services Needed Following services are medically necessary services: Nursing, Home Health Aide, Physical Therapy, Occupational Therapy - Transfer Medications Prescriptions: Cefuroxime PO [Ceftin] 500 mg PO Q12HR #6 tablet Lactobacillus [Culturelle] 1 each PO BID #6 cap.sprink predniSONE [PredniSONE] 10 mg PO BIDWM #6 tablet Azithromycin [Zithromax] 250 mg PO DAILY #3 tablet Home Medications: Lovastatin [Altoprev] 40 mg PO DAILY 01/18/18 [History] amLODIPine [Norvasc] 10 mg PO DAILY 01/18/18 [History] metFORMIN [Glucophage] 500 mg PO BIDWM 01/18/18 [History] Cyanocobalamin (B-12) [Vitamin B12] 1,000 mcg PO DAILY #30 tablet 01/20/18 [Rx] Iron Polysaccharide Complex [Ferrex 150] 150 mg PO DAILY #30 capsule 01/20/18 [Rx] Lisinopril [Zestril] 40 mg PO DAILY #30 tablet 01/20/18 [Rx] Azithromycin [Zithromax] 250 mg PO DAILY #3 tablet 02/08/19 [Rx] Cefuroxime PO [Ceftin] 500 mg PO Q12HR #6 tablet 02/08/19 [Rx] Lactobacillus [Culturelle] 1 each PO BID #6 cap.sprink 02/08/19 [Rx] predniSONE [PredniSONE] 10 mg PO BIDWM #6 tablet 02/08/19 [Rx] Allergies/Adverse Reactions: Allergy/AdvReac Type Severity Reaction Status Date / Time No Known Allergies Allergy Verified 01/18/18 16:56 Certification: Further, I certify that my clinical findings support that this patient is homebound (i.e. absences from home require considerable and taxing effort and are for medical reasons or mormon services or infrequently or short duration when for other reasons) because: Homebound Reason: Leaving home requires considerable and taxing effort due to condition (Severe COPD with hypoxemia.) Attestation: My signature below is to certify that this patient is under my care and that I, or nurse practitioner, or a physician's assistant executive housekeeper working with me, has a [id number] encounter with this patient.
== END 2019-02-08 18:02 | disposition home health service (06) ==
LOC: INPPIK 18:22 → EMEROOPIK 18:22 → INPPIK 20:57
PROVIDERS: ADMIT Internal Medicine; ATTEND Internal Medicine

== ENCOUNTER 2019-02-10 14:13 | Observation (INO) ==
[2019-02-10] MEDS ORDERED: Ipratropium/Albuterol Neb 3 ML IH ONE (14:19)
--- NOTE | 2019-02-10 14:20 | Emergency Department Note ---
Disposition Clinical Impression: Acute exacerbation of chronic obstructive airways disease Disposition: Admitted As Inpatient Condition: Fair Referrals: Nelli Beckett, [employer] [Primary Care Provider] - Forms: ED Satisfaction Letter Time of Disposition: 16:53 SOB HPI - General Chief Complaint: ED Shortness of Breath/Dyspnea Stated Complaint: joanne Time Seen by Provider: 02/10/19 14:19 Source: patient, EMS Mode of arrival: EMS Limitations: no limitations Nursing Notes Reviewed: Yes Vital Signs Reviewed: Yes - History of Present Illness Patient presents to the ED via EMS complaining of shortness of breath. He states it began today. He reports a productive cough with white phlegm that has been going on for several days. He denies any chest pain, palpitations, nausea, vomiting, fever or chills. He states his feet have been slightly swollen but he thinks is because he has been wearing his shoes to bed. Denies any recent travel or sick contacts. He was just discharged from a [facility] on 02/08 after a three-day admission for COPD exacerbation. He was sent home with home health and oxygen at 3 L/m the oxygen mask which is new for him. He had oxygen saturations in the 80s on room air during his previous admission. He was discharged home with Ceftin, azithromycin and prednisone. He states he got his prescriptions and took them the day he was discharged but did not take them yesterday or today as he was having too much trouble breathing. States he has an inhaler at home as well but he does not recall the name of it. Per EMS home health reported that his oxygen saturations were in the 80s when she first got there to visit him today. She increased his oxygen to 5 L/m that he still felt very short of breath that she called 911 for him. EMS states he was in the 80s when they had him briefly on room air to be moved to their ambulance. They gave him an albuterol nebulizer treatment and then he remained in the 90s on 3 L. He states that he lives in a small trailer that does not have any running water. There is laxity and an air conditioner but the patient was not using it and the trailer was very hot. Patient states he has 2 brothers that live nearby that bring him jugs of water. He has a known history of COPD and apparently has a small lung mass that was seen on a CT scan in December 2017 that was new since June 2017. He was scheduled to have a CT during his last admission but states they could not get him comfortable enough with pillows when he attempted to lie flat to have the scan done. He has significant kyphosis. He states he also has trouble breathing when lying flat. - Related Data Home Medications Medication Instructions Recorded Confirmed Lovastatin [Altoprev] 40 mg PO DAILY 01/18/18 02/10/19 amLODIPine [Norvasc] 10 mg PO DAILY 01/18/18 02/10/19 metFORMIN [Glucophage] 500 mg PO BIDWM 01/18/18 02/10/19 Previous Rx's Medication Instructions Recorded Iron Polysaccharide Complex 150 mg PO DAILY #30 capsule 01/20/18 [Ferrex 150] Lisinopril [Zestril] 40 mg PO DAILY #30 tablet 01/20/18 Azithromycin [Zithromax] 250 mg PO DAILY #3 tablet 02/08/19 Cefuroxime PO [Ceftin] 500 mg PO Q12HR #6 tablet 02/08/19 Lactobacillus [Culturelle] 1 each PO BID #6 cap.sprink 02/08/19 predniSONE [PredniSONE] 10 mg PO BIDWM #6 tablet 02/08/19 Allergies Allergy/AdvReac Type Severity Reaction Status Date / Time No Known Allergies Allergy Verified 01/18/18 16:56 Constitutional: Denies: fever, chills, weakness, weight change Eyes: Denies: eye pain, eye discharge, vision change ENT ED: Denies: ear pain, throat pain, dental pain, hearing loss, epistaxis, congestion, dysphagia Cardiovascular: Reports: dyspnea on exertion. Denies: chest pain, palpitations, edema, syncope Respiratory: Reports: cough, dyspnea, sputum production (white). Denies: wheezes, hemoptysis, stridor Gastrointestinal: Denies: abdominal pain, nausea, vomiting, diarrhea, constipation, hematemesis, melena, hematochezia Genitourinary: Denies: urgency, dysuria, frequency, hematuria Musculoskeletal: Denies: back pain, neck pain, arthralgia, myalgia Integumentary: Denies: rash, abrasion, lesions Neurological: Denies: headache, weakness, numbness, paresthesias, confusion, abnormal gait, vertigo Psychiatric: Denies: anxiety, depression, suicidal thoughts, homicidal thoughts, auditory hallucinations, visual hallucinations Endocrine: Denies: fatigue Hematological/Lymphatic: Denies: easy bleeding, easy bruising Allergic/Immunologic: Denies: facial swelling, urticaria Past Medical History - Past Medical History Medical history: Reports: COPD, diabetes, hypertension Surgical history: Reports: other Psychiatric history: Reports: anxiety, depression, schizophrenia - Social History Smoking Status: Current every day smoker Smokeless Tobacco Status: No Alcohol use: Reports: rarely Drug use: Reports: none Physical Exam - General Limitations: no limitations General appearance: alert, in no apparent distress - Head Head exam: atraumatic, normocephalic, normal inspection - Eye Eye exam: Present: normal appearance, PERRL, EOMI - ENT ENT exam: normal exam, normal oropharynx, mucous membranes moist - Neck Neck exam: Present: normal inspection, full ROM, trachea midline - Chest Chest inspection: Present: normal inspection, symmetric chest wall rise - Respiratory Respiratory exam: Present: wheezes (end-expiratory), accessory muscle use, other (diminished throughout) - Cardiovascular Cardiovascular exam: Present: regular rate, normal rhythm, normal heart sounds - Abdominal Exam Abdominal exam: Present: soft, Non-Tender. Absent: tenderness, distention, guarding, rebound, rigidity - Extremities Exam Extremities exam: Present: normal inspection, full ROM. Absent: tenderness, pedal edema - Neurological Exam Neurological exam: Present: alert, oriented X3 - Psychiatric Psychiatric exam: Present: normal affect, normal mood - Skin Skin exam: Present: warm, dry, intact, normal color Course Course Narrative: Patient presents to the ED with shortness of breath and he states started today after he was just discharged 2 days ago for COPD exacerbation. He has been noncompliant with his steroids and antibiotics for the past 2 days but states he was wearing his oxygen although he is living in a very hot environment. Oxygen saturations have been in the mid 90s since arriving in the ED on 2 L of oxygen via nasal cannula initially reported some improvement in his breathing but is now stating that improvement has subsided and he feels the same shortness of breath he had prior to EMS arrival. Review of records shows he did have an elevated PCO2 on his ABG but never required BiPAP during his previous admission. Will recheck ABG along with some basic labs in addition to a chest x-ray. EKG shows just a sinus rhythm at 96 bpm. - Reevaluation(s) Reevaluation #1: Chest x-ray does not show any evidence of pneumonia. Laboratory studies are unremarkable and overall grossly unchanged from last week. His ABG is stable as well with a normal pH, slightly elevated CO2 and low PO2. He is maintaining saturations in the 90s since he has been here but is still diminished with some wheezing. He states he does take off his oxygen at home when he wants to smoke but states he has been wearing it continuously otherwise. He tells me that his brother is working on trying to get him into a "rest home". He states he is willing to do this and realizes he needs help. Discussed with patient the option of admission which could include some assistance in getting him placed into a facility and he is agreeable. Time: 16:02 Reevaluation #2: Spoke hospitalist on-call, Dr. Blanco who has agreed to accept the patient. Time: 16:49 Vital Signs Temperature 97.6 F 02/10/19 14:15 Pulse Rate 93 02/10/19 14:15 Respiratory Rate 24 02/10/19 14:15 Blood Pressure 139/77 02/10/19 14:15 O2 Sat by Pulse Oximetry 95 02/10/19 14:15 Temperature 97.6 F 02/10/19 14:15 Pulse Rate 79 02/10/19 16:15 Respiratory Rate 20 02/10/19 16:15 Blood Pressure 136/69 02/10/19 16:15 O2 Sat by Pulse Oximetry 96 02/10/19 16:15 Oxygen Delivery Oxygen Delivery Nasal Cannula Shortness of Breath/Dyspnea - Differential Diagnosis Likely: acute exacerbation of chronic obstructive airways disease, pneumonia - Medical Records Medical records reviewed: Yes I reviewed the patient's medical records. - Lab Data Lab results reviewed: Yes I reviewed the patient's lab results. Result diagrams: 02/10/19 15:06 02/10/19 15:06 Lab Results 02/10/19 02/10/19 02/10/19 Range/Units 15:06 15:06 15:06 WBC 5.6 (4.3-11.1) K/mcL RBC 4.52 (4.19-5.50) M/mcL Hgb 12.1 L D (12.9-16.9) g/dL Hct 37.8 (37.5-50.1) % MCV 83.6 (83.0-100.0) fL MCH 26.8 L (28.0-33.3) pg MCHC 32.0 (31.6-35.5) g/dL RDW 17.0 H (11.5-14.5) % Plt Count 223 (140-400) K/mcL MPV 9.4 (9.4-12.4) fL Immature Gran % 0.2 (0-4) % Seg Neutrophils % 76.1 % Lymphocytes % 14.4 % Monocytes % 8.4 % Eosinophils % 0.4 % Basophils % 0.5 % Neutrophils # 4.2 (1.6-8.9) K/mcL Lymphocytes # 0.8 (0.6-4.6) K/mcL Monocytes # 0.5 (0.0-1.3) K/mcL Eosinophils # 0.0 (0.0-0.6) K/mcL Basophils # 0.0 (0.0-0.2) K/mcL Sample Site R Radial ABG pH 7.37 (7.32-7.45) pH Units ABG pCO2 67 H (35-45) mmHg ABG pO2 75 L (85-104) mmHg ABG HCO3 39 H (21-27) mEq/L ABG Total CO2 41 H (20-26) mEq/L ABG O2 Saturation 94 L (95-98) % ABG Base Excess 11 H (-2 to 3) mEq/L Shaheed Test Positive O2 Delivery Device Cannula Inspired O2 3.0 (1-15=lpm [id number]=%) Sodium 131 L (136-145) mEq/L Potassium 4.1 (3.5-5.1) mEq/L Chloride 87 L (98-107) mEq/L Carbon Dioxide 39 H (23-29) mEq/L BUN 12 (8-23) mg/dL Creatinine 0.56 L (0.70-1.30) mg/dL Est GFR ( Amer) > 60 (> 60) Est GFR (Non-Af Amer) > 60 (> 60) BUN/Creatinine Ratio 21 (6-26) Glucose 83 (70-105) mg/dL Calculated Osmolality 271 L (280-300) Calcium 9.0 (8.6-10.3) mg/dL - Radiology Data Radiology results reviewed: Yes I reviewed the patient's radiology results. ITS Impressions Chest X-Ray 02/10/19 14:19 IMPRESSION: Limited evaluation. No acute findings. D/ / 02/10/2019 15:36:04 Justino Ibanez MD / mere Interpreting Provider: Justino Ibanez MD - EKG Data EKG attestation: Yes I reviewed and interpreted this EKG. EKG shows normal: Reports: sinus rhythm Rate: Reports: normal Rhythm: Reports: NSR [place]/QRS: Reports: normal Voltage: Reports: c/w LVH Interpretation: Reports: no acute changes
[2019-02-10] MEDS ORDERED: methylPREDNISolone 125 MG/2 ML VIAL IVP ONE (14:54)
[2019-02-10 15:09] LABS: ABG Base Excess 11 mEq/L (-2 to 3); ABG HCO3 39 mEq/L (21-27); ABG Oxygen Saturation 94 % (95-98); ABG PCO2 67 mmHg (35-45); ABG PH 7.37 pH Units (7.32-7.45); ABG PO2 75 mmHg (85-104); ABG TCO2 41 mEq/L (20-26)
[2019-02-10 15:15] LABS: Basophils % 0.5 %; Eosinophils % 0.4 %; Hematocrit 37.8 % (37.5-50.1); Hemoglobin 12.1 g/dL (12.9-16.9); Immature Granulocytes % 0.2 % (0-4); Lymphocytes # 0.8 K/mcL (0.6-4.6); Lymphocytes % 14.4 %; Mean Corpuscular Hemoglobin 26.8 pg (28.0-33.3); Mean Corpuscular Volume 83.6 fL (83.0-100.0); Mean Platelet Volume 9.4 fL (9.4-12.4); Monocytes # 0.5 K/mcL (0.0-1.3); Monocytes % 8.4 %; Neutrophils # 4.2 K/mcL (1.6-8.9); Platelet Count 223 K/mcL (140-400); Red Blood Count 4.52 M/mcL (4.19-5.50); Segmented Neutrophils % 76.1 %; White Blood Count 5.6 K/mcL (4.3-11.1)
[2019-02-10 15:31] LABS: BUN/Creatinine Ratio 21 (6-26); Blood Urea Nitrogen 12 mg/dL (8-23); Carbon Dioxide 39 mEq/L (23-29); Chloride 87 mEq/L (98-107); Glucose 83 mg/dL (70-105); Osmolality,Calculated 271 (280-300); Potassium 4.1 mEq/L (3.5-5.1); Sodium 131 mEq/L (136-145); eGFR For African Americans > 60 (> 60); eGFR For Non-African Americans > 60 (> 60)
[2019-02-10] MEDS ORDERED: Naloxone 0.4 MG/ML INJ IVP PRN ×2 (16:50→17:04)
[2019-02-10] MEDS ORDERED: Ipratropium/Albuterol Neb 3 ML IH SCH (17:00)
[2019-02-10] MEDS: predniSONE 10 MG TABLET PO SCH (17:53)
[2019-02-10] MEDS: *HR* Metformin 500 MG TABLET PO SCH (18:10)
[2019-02-10] MEDS: Ipratropium/Albuterol Neb 3 ML IH SCH (20:31)
[2019-02-10] MEDS: Lactobacillus 1 EACH CAP.SPRINK PO SCH (21:06)
[2019-02-10] MEDS: Cefuroxime PO 250 MG TABLET PO SCH (21:07)
[2019-02-11] MEDS: Ipratropium/Albuterol Neb 3 ML IH SCH ×7 (00:47→23:49)
[2019-02-11] MEDS: predniSONE 10 MG TABLET PO SCH ×2 (07:28→16:46)
[2019-02-11] MEDS: *HR* Metformin 500 MG TABLET PO SCH ×2 (07:28→16:45)
[2019-02-11] MEDS: Azithromycin 250 MG TABLET PO SCH (08:53)
[2019-02-11] MEDS: Lactobacillus 1 EACH CAP.SPRINK PO SCH ×2 (08:54→21:34)
[2019-02-11] MEDS: Cefuroxime PO 250 MG TABLET PO SCH ×2 (08:54→21:34)
[2019-02-11] MEDS: amLODIPine 5 MG TABLET PO SCH (08:55)
[2019-02-11] MEDS: Lisinopril 20 MG TABLET PO SCH (08:55)
[2019-02-11] MEDS ORDERED: Iron Polysaccharide Complex 150 MG CAPSULE PO SCH (09:00)
--- NOTE | 2019-02-11 11:48 | Internal Med History&Physical ---
Date of Encounter: 02/11/19 Time of Encounter: 11:20 Assessment and Plan (1) Acute exacerbation of chronic obstructive airways disease Current visit: Yes Status: Acute He has been started on Rocephin and Zithromax with lactobacillus. (2) Anemia Current visit: No Status: Acute Anemia workup 02/07/2019 reviewed. Continue ferrous sulfate with ascorbic acid. Qualifiers: Anemia type: unspecified type Qualified Code(s): D64.9 - Anemia, unspecified (3) Weakness Current visit: No Status: Acute PT and OT evaluations will be ordered. He is agreeable to SNF placement. (4) Hyponatremia Current visit: No Status: Chronic Stable. Present on all labs since June 2017. (5) DM type 2 (diabetes mellitus, type 2) Current visit: No Status: Chronic Hemoglobin A1c satisfactory at 6.3% on 02/07/2019. Continue metformin. 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 Reorder after respiratory status improved. (7) Schizophrenia Current visit: No Status: Chronic [place] per [facility] Qualifiers: Schizophrenia type: unspecified Qualified Code(s): F20.9 - Schizophrenia, unspecified (8) Hypertension Current visit: No Status: Chronic February 11. Continue Norvasc and lisinopril. Qualifiers: Hypertension type: essential hypertension Qualified Code(s): I10 - Essential (primary) hypertension Internal Medicine - H&P: HPI Chief complaint: Dyspnea Admitted From: Emergency Dept Plans for Post Hospital Care: Home History of present illness: Mr. Russell is a 63 year old male who came to emergency room complaining of increased dyspnea. He had been discharged from [facility] February 08 after admission February 06 for exacerbation of COPD. He qualified for home oxygen. He received antibiotics Rx at discharge. He reports after discharge he did not fill his prescription for antibiotics or prednisone. He continued to smoke and did not use oxygen as prescribed. Dyspnea worsened so he returned to emergency room. He was felt to have exacerbation of COPD and was admitted again to [facility] floor for ongoing care needs. Respiratory history is significant for having smoked since age 17 up to 3 packs per day. He has not had PFTs. Most recent chest CT 01/18/2018 showed stable 4.2 mm left lower lobe pleural-based nodule and a right lower lobe pleural-based mass measuring 1.7 x 2 cm. follow-up CT of chest was ordered during his recent [facility] stay but he could not lie flat to have the study performed due to dyspnea. He is uncertain if he has had OUSMANE testing. He states he was discharged from a local SNF November 2018 and feels he should return there. Past Med Surg Social Fam HX - Past Medical History Medical history: COPD, diabetes, hypertension Additional medical history: PT UNABLE TO GIVE ACCURATE MEDICAL HISTORY Psychiatric history: anxiety, depression, schizophrenia - Past Surgical History Surgical History: other Additional surgical history: tumor removed from left side of abdomen - Social History Smoking Status: Current every day smoker Packs per day: 1 Smokeless Tobacco Status: No Alcohol use: occasionally Drug use: none Internal Medicine - H&P: Meds Lovastatin [Altoprev] 40 mg PO DAILY 01/18/18 [History] amLODIPine [Norvasc] 10 mg PO DAILY 01/18/18 [History] metFORMIN [Glucophage] 500 mg PO BIDWM 01/18/18 [History] Iron Polysaccharide Complex [Ferrex 150] 150 mg PO DAILY #30 capsule 01/20/18 [Rx] Lisinopril [Zestril] 40 mg PO DAILY #30 tablet 01/20/18 [Rx] Azithromycin [Zithromax] 250 mg PO DAILY #3 tablet 02/08/19 [Rx] Cefuroxime PO [Ceftin] 500 mg PO Q12HR #6 tablet 02/08/19 [Rx] Lactobacillus [Culturelle] 1 each PO BID #6 cap.sprink 02/08/19 [Rx] predniSONE [PredniSONE] 10 mg PO BIDWM #6 tablet 02/08/19 [Rx] Allergy/AdvReac Type Severity Reaction Status Date / Time No Known Allergies Allergy Verified 01/18/18 16:56 All Systems PM: A 10-system review of systems was performed and is negative for pertinent findings except as documented above in the HPI. Review of systems: Review of systems from his recent January 2019 [facility] hospitalization were reviewed and revised as below. Gen.: His weight decreased from 66.5 kg on 07/18/2017 to 59.534 kg December 2017. It has been stable since then with weight 59.137 kg today. Cardiovascular: He has history of hypertension but denies OR heart failure or angina DVT or pulmonary embolism. He does get dyspneic on exertion. 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 Respiratory: As per history of present illness GI: He denies disorders of his liver gallbladder or exocrine pancreas : He denies hematuria dysuria or kidney stones. He had resection of a left suprarenal mass at [facility] September 2017. He reports pathology was benign. Neurologic: He denies large distribution strokes or seizures. Endocrine: He was diagnosed with DM 2 approximately 2001. He denies thyroid disease or hyperlipidemia Hematology/oncology: He denies blood disorders or cancers. Anemia testing 02/07/2019 showed iron 14, transferrin saturation 4%, transferrin 229, ferritin 13, B12 285, and folate 9.9. He was started on oral ferrous sulfate with ascorbic acid. Stool guaiac was ordered but not collected during hospitalization. He reports he did not take ferrous sulfate or ascorbic acid after discharge. Psychiatric: He has anxiety depression and schizophrenia. He follows with mental health clinic. Musculoskeletal: He reports occasional pain in his hand but denies significant arthritis gout or other bone joint or muscle disorders. - Constitutional Vitals: Temp Pulse Resp BP Pulse Ox 98.8 F 76 20 104/65 97 02/11/19 10:17 02/11/19 10:17 02/11/19 10:17 02/11/19 10:17 02/11/19 10:17 Exam: Gen.: He is a well-developed well-nourished male lying in bed who appears slightly dyspneic HEENT: Head is atraumatic and normocephalic. Eyes: EOMI. There is no scleral icterus. Mouth: Mucosa is moist. Neck: Supple and nontender. There is no thyromegaly or adenopathy noted. Heart: Regular without murmurs gallops or ectopics Lungs: He has diminished breath sounds diffusely. No wheezes or crackles are heard. Abdomen: Soft and nontender. No masses or guarding are noted. Back: He has dorsal kyphosis. Allevyn is in place in the mid thoracic area which I did not remove. Extremities: He is wearing KRISHNA hose which I did not remove. No edema is palpated through the KRISHNA hose. He has minimal DJD changes of his hands. Neurologic: Mental status: He is talkative and a good historian. Cranial nerves: Smile is symmetric. Forehead wrinkles bilaterally. Tongue protrudes midline. EOMI. Motor: There is no pronator drift. Cerebellar: Finger to nose is intact bilaterally. Skin: Warm and dry Internal Med - H&P Results - Labs CBC & Chem 7: 02/10/19 15:06 02/10/19 15:06 Labs: Short CBC 02/10/19 Range/Units 15:06 WBC 5.6 (4.3-11.1) K/mcL Hgb 12.1 L D (12.9-16.9) g/dL Hct 37.8 (37.5-50.1) % Plt Count 223 (140-400) K/mcL Neutrophils # 4.2 (1.6-8.9) K/mcL BMP 02/10/19 15:06 Sodium 131 L Potassium 4.1 Chloride 87 L Carbon Dioxide 39 H BUN 12 Creatinine 0.56 L Glucose 83 Calcium 9.0 - ABG Interpretation ABG results: 02/10/19 15:06 ABG pH 7.37 ABG pCO2 67 H ABG pO2 75 L ABG HCO3 39 H ABG Total CO2 41 H ABG O2 Saturation 94 L ABG Base Excess 11 H - Impressions ITS Impressions Chest X-Ray 02/10/19 14:19 IMPRESSION: Limited evaluation. No acute findings. D/ / 02/10/2019 15:36:04 Justino Ibanez MD / mere Interpreting Provider: Justino Ibanez MD - VTE Reasons for not Prescribing Prophylaxis: Treatment not Indicated - Low risk for VTE
[2019-02-12] MEDS: Ipratropium/Albuterol Neb 3 ML IH SCH ×5 (04:44→20:27)
[2019-02-12] MEDS: Ascorbic Acid 500 MG TABLET PO SCH (06:22)
--- NOTE | 2019-02-12 07:33 | Electrocardiograph Report ---
[facility] [facility] Test Date: 2019-02-10 Pat Name: Angel Russell Department: EDP-16 Room: [facility] Gender: M Loom [employer] Checker: : 1955 Requested By: Ching Burgess Order Number: [id number] Reading MD: Lamont Davis Measurements Intervals [place] Rate: 96 P: 82 [place]: 137 QRS: 38 QRSD: 81 T: 86 QT: 338 QTc: 428 Interpretive Statements Sinus rhythm Left ventricular hypertrophy Electronically Signed On 02-12-2019 6:55:13 EDT by Lamont Davis
[2019-02-12] MEDS: predniSONE 10 MG TABLET PO SCH ×2 (10:20→17:33)
[2019-02-12] MEDS: *HR* Metformin 500 MG TABLET PO SCH ×2 (10:21→17:33)
[2019-02-12] MEDS: Cefuroxime PO 250 MG TABLET PO SCH ×2 (10:21→20:21)
[2019-02-12] MEDS: Lactobacillus 1 EACH CAP.SPRINK PO SCH ×2 (10:21→20:20)
[2019-02-12] MEDS: amLODIPine 5 MG TABLET PO SCH (10:21)
[2019-02-12] MEDS: Azithromycin 250 MG TABLET PO SCH (10:21)
[2019-02-12] MEDS: Lisinopril 20 MG TABLET PO SCH (10:21)
--- NOTE | 2019-02-12 19:04 | Internal Med Progress Note ---
Date of Encounter: 02/12/19 Time of Encounter: 18:56 - Assessment and plan (1) Acute exacerbation of chronic obstructive airways disease Current Visit: Yes Status: Acute Assessment and plan: February 12. Continue Rocephin and Zithromax with lactobacillus. (2) Anemia Current Visit: No Status: Acute Assessment and plan: February 12. Continue ferrous sulfate with ascorbic acid. Qualifiers: Anemia type: unspecified type Qualified Code(s): D64.9 - Anemia, unspecified (3) Weakness Current Visit: No Status: Acute Assessment and plan: February 12. Continue PT/OT intervention. Awaiting approval for SNF placement. (4) Hyponatremia Current Visit: No Status: Chronic Assessment and plan: February 12. Stable. Continue to monitor labs periodically. (5) DM type 2 (diabetes mellitus, type 2) Current Visit: No Status: Chronic Assessment and plan: February 12. Hemoglobin A1c satisfactory at 6.3% on 02/07/2019. Continue metformin and Accu-Cheks with SSI. Qualifiers: Diabetes mellitus senior care insulin use: without senior care use Diabetes mellitus complication status: without complication Qualified Code(s): E11.9 - Type 2 diabetes mellitus without complications (6) Right lower lobe lung mass Current Visit: No Status: Acute Assessment and plan: February 12. Unsuccessful CT attempt last admission to evaluate. Possibly reorder after respiratory status improved. (7) Schizophrenia Current Visit: No Status: Chronic Assessment and plan: February 12. As per [facility]. Qualifiers: Schizophrenia type: unspecified Qualified Code(s): F20.9 - Schizophrenia, unspecified (8) Hypertension Current Visit: No Status: Chronic Assessment and plan: February 12. Continue Norvasc and lisinopril. Qualifiers: Hypertension type: essential hypertension Qualified Code(s): I10 - Essential (primary) hypertension - Subjective Interval history: February 12. He has no new complaints. - Constitutional Vitals: Temp Pulse Resp BP Pulse Ox 98.5 F 82 20 106/77 98 02/12/19 15:54 02/12/19 15:54 02/12/19 17:10 02/12/19 15:54 02/12/19 17:10 Exam: He is resting comfortably in bed and appears in no acute distress. Lungs show diminished breath sounds diffusely. He is appropriate in conversation. I r eviewed his medications and lab results. Internal Medicine: Result - Labs CBC & Chem 7: 02/10/19 15:06 02/10/19 15:06 - ABG Interpretation ABG results: ABG ABG pH 7.37 pH Units (7.32-7.45) 02/10/19 15:06 ABG pCO2 67 mmHg (35-45) H 02/10/19 15:06 ABG pO2 75 mmHg (85-104) L 02/10/19 15:06 ABG O2 Saturation 94 % (95-98) L 02/10/19 15:06 - VTE Reasons for not Prescribing Prophylaxis: Treatment not Indicated - Low risk for VTE Consult Discharge Plan - Plan Referrals: Nelli Beckett, POLICEMAN [Primary Care Provider] - 1 week
[2019-02-13] MEDS: Ipratropium/Albuterol Neb 3 ML IH SCH ×4 (01:08→12:26)
[2019-02-13] MEDS: Ascorbic Acid 500 MG TABLET PO SCH (06:17)
[2019-02-13] MEDS: predniSONE 10 MG TABLET PO SCH (08:30)
[2019-02-13] MEDS: Lisinopril 20 MG TABLET PO SCH ×2 (08:30→08:35)
[2019-02-13] MEDS: *HR* Metformin 500 MG TABLET PO SCH (08:30)
[2019-02-13] MEDS: Lactobacillus 1 EACH CAP.SPRINK PO SCH (08:30)
[2019-02-13] MEDS: amLODIPine 5 MG TABLET PO SCH ×2 (08:30→08:35)
[2019-02-13] MEDS: Azithromycin 250 MG TABLET PO SCH (08:31)
[2019-02-13] MEDS: Cefuroxime PO 250 MG TABLET PO SCH (08:31)
--- NOTE | 2019-02-13 14:20 | Discharge Summary ---
Orders not resulted at time of discharge: Pending orders 02/11/19 13:19 MMA (VIT B12 STATUS) Routine Date of Encounter: 02/13/19 Time of Encounter: 14:12 - Discharge Diagnosis (1) Acute exacerbation of chronic obstructive airways disease Priority: Primary Status: Acute (2) Anemia Priority: Secondary Status: Acute Qualifiers: Anemia type: unspecified type Qualified Code(s): D64.9 - Anemia, unspecified (3) Weakness Priority: Secondary Status: Acute (4) Hyponatremia Priority: Secondary Status: Chronic (5) DM type 2 (diabetes mellitus, type 2) Priority: Secondary Status: Chronic Qualifiers: Diabetes mellitus long term acute care registered nurse insulin use: without long term acute care registered nurse use Diabetes mellitus complication status: without complication Qualified Code(s): E11.9 - Type 2 diabetes mellitus without complications (6) Right lower lobe lung mass Priority: Secondary Status: Acute (7) Schizophrenia Priority: Secondary Status: Chronic Qualifiers: Schizophrenia type: unspecified Qualified Code(s): F20.9 - Schizophrenia, unspecified (8) Hypertension Priority: Secondary Status: Chronic Qualifiers: Hypertension type: essential hypertension Qualified Code(s): I10 - Essential (primary) hypertension Hospital course: Mr. Russell is a 63 year old male who came to emergency room complaining of increased dyspnea. He had been discharged from [facility] February 08 after admission February 06 for exacerbation of COPD. He qualified for home oxygen. He received antibiotics Rx at discharge. He reports after discharge he did not fill his prescription for antibiotics or prednisone. He continued to smoke and did not use oxygen as prescribed. Dyspnea worsened so he returned to emergency room. He was felt to have exacerbation of COPD and was admitted again to [facility] for ongoing care needs. Initial orders were written by the emergency room physician. I saw him on and performed the history and physical. He was given Rocephin and Zithromax during hospitalization. His breathing returned to baseline. Antibiotics will not be continued at discharge. Anemia workup 02/07/2019 was reviewed. Ferrous sulfate with ascorbic acid was continued. PT and OT evaluations were done. He made slight progress. He was agreeable to SNF placement for ongoing care needs. Blood pressure became borderline low by time of discharge. Norvasc will be held and lisinopril continued. Blood pressure will be monitored at the SNF. On February 13 he was stable for discharge to [facility]. He will follow with me there. - Time Spent with Patient Total time spent providing and/or coordinating discharge services: - Discharge Medications Prescriptions: New Ferrous Sulfate 325 mg PO 0630 tablet Ascorbic Acid [Vitamin C] 500 mg PO 0630 tablet Continued metFORMIN [Glucophage] 500 mg PO BIDWM Lovastatin [Altoprev] 40 mg PO DAILY Lisinopril [Zestril] 40 mg PO DAILY #30 tablet Discontinued amLODIPine [Norvasc] 10 mg PO DAILY Iron Polysaccharide Complex [Ferrex 150] 150 mg PO DAILY #30 capsule Cefuroxime PO [Ceftin] 500 mg PO Q12HR #6 tablet Lactobacillus [Culturelle] 1 each PO BID #6 cap.sprink predniSONE [PredniSONE] 10 mg PO BIDWM #6 tablet Azithromycin [Zithromax] 250 mg PO DAILY #3 tablet Home Medications: Lovastatin [Altoprev] 40 mg PO DAILY 01/18/18 [History] metFORMIN [Glucophage] 500 mg PO BIDWM 01/18/18 [History] Lisinopril [Zestril] 40 mg PO DAILY #30 tablet 01/20/18 [Rx] Ascorbic Acid [Vitamin C] 500 mg PO 0630 tablet 02/13/19 [Rx] Ferrous Sulfate 325 mg PO 0630 tablet 02/13/19 [Rx] Allergies/Adverse Reactions: Allergy/AdvReac Type Severity Reaction Status Date / Time No Known Allergies Allergy Verified 01/18/18 16:56 Date of admission: 02/10/19 16:57 Primary care physician: Nelli Beckett CNP Consults: 02/11/19 12:03 Consult to Occupational Therapy [CONS] Routine Comment: Evaluate, develop and implement POC Reason for Consult: Weakness Does patient have active BEDREST order?: No Is patient medically & hemodynamically stable?: Yes Patient assessed for mobility or mobilized this visit?: Yes Consult to Physical Therapy [CONS] Routine Comment: Evaluate, develop and implement POC Reason for Consult: Weakness Does patient have active BEDREST order?: No Is patient medically & hemodynamically stable?: Yes Patient assessed for mobility or mobilized this visit?: Yes - Constitutional Vitals: Temp Pulse Resp BP Pulse Ox 98.3 F 78 18 97/62 96 02/13/19 07:23 02/13/19 07:23 02/13/19 12:26 02/13/19 07:23 02/13/19 12:26 - Patient Status Disposition: Transfer SNF Condition: Fair - Discharge Instructions - Diet and Activity Activity: as per physical therapy Diet: diabetic diet - VTE Reasons for not Prescribing Prophylaxis: Treatment not Indicated - Low risk for VTE
--- NOTE | 2019-02-13 14:29 | Physician Discharge Referral ---
ExtendedCare Referral Info Transfer To: [facility] Provider in Charge: Francis Provider in Charge after Transfer: PCP (Francis) - Diagnosis (1) Acute exacerbation of chronic obstructive airways disease Priority: Primary Status: Acute (2) Anemia Priority: Secondary Status: Acute (3) Weakness Priority: Secondary Status: Acute (4) Hyponatremia Priority: Secondary Status: Chronic (5) DM type 2 (diabetes mellitus, type 2) Priority: Secondary Status: Chronic (6) Right lower lobe lung mass Priority: Secondary Status: Acute (7) Schizophrenia Priority: Secondary Status: Chronic (8) Hypertension Priority: Secondary Status: Chronic Prognosis: Fair Aware of Diagnosis: Patient Aware of Prognosis: Patient - Transfer Medications Home Medications: Lovastatin [Altoprev] 40 mg PO DAILY 01/18/18 [History] metFORMIN [Glucophage] 500 mg PO BIDWM 01/18/18 [History] Lisinopril [Zestril] 40 mg PO DAILY #30 tablet 01/20/18 [Rx] Ascorbic Acid [Vitamin C] 500 mg PO 0630 tablet 02/13/19 [Rx] Ferrous Sulfate 325 mg PO 0630 tablet 02/13/19 [Rx] Allergies/Adverse Reactions: Allergy/AdvReac Type Severity Reaction Status Date / Time No Known Allergies Allergy Verified 01/18/18 16:56 - Respiratory Orders Oxygen / L per min (2 L/m by nasal cannula 16/01) Smoking Cessation: Smoking cessation has been advised. For more information, call the [place] Tobacco Quit Line at 7-170-QMLH-NOW. - Lab Orders Lab Orders: Other (include drug levels w/frequency) (CBC with differential, BMP, BNP peptide, hemoglobin A1c every 3 months - June, September, December, March) - Advance Directives Code Status: Full Code - Mobility Orders Ambulate - Rehabiliation Orders Rehab Potential: Fair Rehab Orders: Evaluation for Physical Therapy, Evaluation for Occupational Therapy - Diet Orders No Concentrated Sweets CERTIFICATION: I certify that the transfer of the above named patient to an Extended Care Facility is necessary for the continuing treatment of the diagnosis listed. The above information is true and accurate reflection of patient's current condition. Confidential - Redisclosure prohibited without a patient's written consent.
[2019-02-13 14:36] VITALS: BP 113/71
== END 2019-02-13 16:25 ==
LOC: EMEROOPIK 14:13 → INPPIK 14:13
PROVIDERS: ADMIT Internal Medicine; ATTEND Internal Medicine

== ENCOUNTER 2019-04-04 23:27 | Observation (INO) ==
[2019-04-04] MEDS ORDERED: 0.9 % Sodium Chloride 1,000 ML IVC ONE (23:30)
[2019-04-04] MEDS ORDERED: cefTRIAXone 2,000 MG in Water for inj. (sterile) 10 ML IVP ONE (23:30)
[2019-04-04] MEDS ORDERED: Azithromycin 500 MG in 0.9 % Sodium Chloride 250 ML IVPB ONE (23:30)
[2019-04-04] MEDS ORDERED: Albuterol 2.5 MG/3 ML NEBULIZER IH ONE (23:30)
--- NOTE | 2019-04-04 23:43 | Emergency Department Note ---
Disposition Clinical Impression: Acute exacerbation of chronic obstructive airways disease, Hyponatremia, Hypochloremia, Elevated d-dimer Disposition: Admitted As Inpatient Condition: Fair Referrals: Nelli Beckett, MUSIC [employer]YIST [Primary Care Provider] - Forms: ED Satisfaction Letter Time of Disposition: 01:25 SOB HPI - General Chief Complaint: ED Shortness of Breath/Dyspnea Stated Complaint: short of breath Time Seen by Provider: 04/04/19 23:30 Source: patient, EMS Mode of arrival: EMS Limitations: no limitations Nursing Notes Reviewed: Yes Vital Signs Reviewed: Yes - History of Present Illness Patient presents with increased shortness of breath. States this is been severe over the last 2-3 hours. He does report some cough small amount of phlegm. He denies any fevers, chills. He denies exposure to any respiratory irritant. Denies chest pain or palpitations. He has had history of COPD and denies history of heart failure or heart disease. He has been on medicines. He denies any ill exposures. He denies any extremity swelling, immobilization or injury. He is brought in by EMS and found to be quite dyspneic. An IV was established with Solu-Medrol administered and 2 aerosols given prior to his arrival. Pt Subjective Complaint: shortness of breath Onset (ago): hour(s) Severity: moderate, severe Consistency/Duration: gradually worsening Improves with: oxygen, bronchodilators Worsens with: coughing Associated symptoms: Reports: cough, wheezing, sputum production. Denies: chest pain, pain with inspiration, fever, orthopnea, lower extremity pain, polyuria, polydipsia, parasthesias, palpitations, hemoptysis, diaphoresis, nausea/vomiting, syncope, abdominal pain, rash Treatment prior to arrival: oxygen, bronchodilator, other (Solu-Medrol) Cough present: No Cough Description: Voluntary, Productive, Wheezy Cough Frequency: Intermittent Sputum Amount: Small Sputum Color: Green - Related Data Home oxygen amount: 2 liters (When necessary) Home Medications Medication Instructions Recorded Confirmed Lovastatin [Altoprev] 40 mg PO DAILY 01/18/18 04/04/19 metFORMIN [Glucophage] 500 mg PO BID 01/18/18 04/04/19 Previous Rx's Medication Instructions Recorded Lisinopril [Zestril] 40 mg PO DAILY #30 tablet 01/20/18 Ascorbic Acid [Vitamin C] 500 mg PO 0630 tablet 02/13/19 Ferrous Sulfate 325 mg PO 0630 tablet 02/13/19 Allergies Allergy/AdvReac Type Severity Reaction Status Date / Time No Known Allergies Allergy Verified 04/04/19 23:30 All systems ED: reviewed and negative except as stated. Past Medical History - Past Medical History Attestation: Yes The following information was validated with the patient. Source: patient, old records reviewed, nursing notes reviewed Medical history: Reports: COPD, diabetes, hypertension Surgical history: Reports: other (Left abdominal tumor removed) Psychiatric history: Reports: anxiety, depression, schizophrenia - Social History Smoking Status: Current every day smoker Smokeless Tobacco Status: No Alcohol use: Reports: occasionally Drug use: Reports: none Physical Exam - General Limitations: no limitations General appearance: alert, anxious - Head Head exam: atraumatic, normocephalic, normal inspection - Eye Eye exam: Present: normal appearance, PERRL, EOMI - ENT ENT exam: normal exam, normal oropharynx, mucous membranes moist - Neck Neck exam: Present: normal inspection, full ROM, trachea midline - Chest Chest inspection: Present: normal inspection, symmetric chest wall rise - Respiratory Respiratory exam: Present: respiratory distress, wheezes, prolonged expiratory phase - Cardiovascular Cardiovascular exam: Present: regular rate, normal rhythm, normal heart sounds - Abdominal Exam Abdominal exam: Present: soft, Non-Tender, normal bowel sounds. Absent: tenderness, distention, guarding, rebound, rigidity - Extremities Exam Extremities exam: Present: normal inspection, full ROM, normal capillary refill. Absent: tenderness, pedal edema - Expanded Lower Extremity Exam Neurovascular/Tendon exam: Present: normal capillary refill. Absent: motor deficit, sensory deficit, tendon deficit Gait: not tested/not observed - Back Exam Back exam: Present: normal inspection, full ROM. Absent: tenderness - Neurological Exam Neurological exam: Present: alert, oriented X3. Absent: motor sensory deficit - Psychiatric Psychiatric exam: Present: normal affect, anxious - Skin Skin exam: Present: warm, dry, intact, normal color. Absent: cyanosis, pallor Course Course Narrative: 0044: Patient is resting much more comfortably on his side. He has a heart rate of 105, saturation 94%, respiratory rate of 27 and a blood pressure 133/72. Given the slight elevation the d-dimer and his report of acute increase in shortness of breath 2-3 hours prior to arrival, CT PE study has been ordered. With his low sodium and chloride his normal saline has been liberalized to receive 2 L of saline and then following him 125 per hour. Upon completion of imaging, care will be discussed with Dr. Blanco to see if he feels he is appropriate for continued observation at this facility. 0120: All current testing is been discussed with Dr. Blanco. He knows this patient from 2 previous admissions for month ago. He feels comfortable with observing him with administration of some Lovenox. He will reevaluate his laboratories and need for further testing in the morning. Verbal orders have been obtained for his observation. Vital Signs Temperature 97.3 F L 04/04/19 23:28 Pulse Rate 98 04/04/19 23:28 Respiratory Rate 33 04/04/19 23:28 Blood Pressure 163/90 04/04/19 23:28 O2 Sat by Pulse Oximetry 95 04/04/19 23:28 Temperature 97.3 F L 04/04/19 23:28 Pulse Rate 95 04/05/19 01:20 Respiratory Rate 18 04/05/19 01:20 Blood Pressure 152/90 04/05/19 01:20 O2 Sat by Pulse Oximetry 96 04/05/19 01:20 Oxygen Delivery Oxygen Delivery Nasal Cannula Shortness of Breath/Dyspnea - Differential Diagnosis Likely: acute exacerbation of chronic obstructive airways disease, pneumonia, asthma with exacerbation - Medical Records Medical records reviewed: Yes I reviewed the patient's medical records. - Lab Data Lab results reviewed: Yes I reviewed the patient's lab results. Result diagrams: 04/04/19 23:45 04/04/19 23:45 Lab Results 04/04/19 04/04/19 04/04/19 Range/Units 23:45 23:45 23:45 WBC 9.6 (4.3-11.1) K/mcL RBC 4.73 (4.19-5.50) M/mcL Hgb 13.5 (12.9-16.9) g/dL Hct 38.7 (37.5-50.1) % MCV 81.8 L (83.0-100.0) fL MCH 28.5 (28.0-33.3) pg MCHC 34.9 (31.6-35.5) g/dL RDW 17.2 H (11.5-14.5) % Plt Count 263 (140-400) K/mcL MPV 8.8 L (9.4-12.4) fL Immature Gran % 0.4 (0-4) % Seg Neutrophils % 82.5 % Lymphocytes % 10.0 % Monocytes % 6.4 % Eosinophils % 0.4 % Basophils % 0.3 % Neutrophils # 7.9 (1.6-8.9) K/mcL Lymphocytes # 1.0 (0.6-4.6) K/mcL Monocytes # 0.6 (0.0-1.3) K/mcL Eosinophils # 0.0 (0.0-0.6) K/mcL Basophils # 0.0 (0.0-0.2) K/mcL PT (9.4-12.1) Seconds INR D-Dimer 566 H (0-500) ng/mLFEU Sodium 116 L* (136-145) mEq/L Potassium 3.8 (3.5-5.1) mEq/L Chloride 77 L (98-107) mEq/L Carbon Dioxide 33 H (23-29) mEq/L BUN 6 L (8-23) mg/dL Creatinine 0.48 L (0.70-1.30) mg/dL Est GFR ( Amer) > 60 (> 60) Est GFR (Non-Af Amer) > 60 (> 60) BUN/Creatinine Ratio 13 (6-26) Glucose 116 H (70-105) mg/dL Calculated Osmolality 241 L (280-300) Lactic Acid (0.5-2.2) mmol/L Calcium 9.0 (8.6-10.3) mg/dL Total Bilirubin 0.6 (0.3-1.0) mg/dL Direct Bilirubin 0.1 (0.0-0.2) mg/dL Indirect Bilirubin 0.5 (0.0-1.2) mg/dL AST 35 (13-39) Units/L ALT 20 (7-52) Units/L Alkaline Phosphatase 67 (34-104) Units/L Troponin I < 0.03 (< 0.04) ng/mL B-Natriuretic Peptide (Less than 100) pg/mL Serum Total Protein 7.0 (6.4-8.9) g/dL Albumin 4.3 (3.5-5.7) g/dL Globulin 2.7 (2.4-3.5) g/dL Albumin/Globulin Ratio 1.6 (1.1-2.2) Ethyl Alcohol (Less than 10) mg/dL 04/04/19 04/04/19 04/04/19 Range/Units 23:45 23:45 23:45 WBC (4.3-11.1) K/mcL RBC (4.19-5.50) M/mcL Hgb (12.9-16.9) g/dL Hct (37.5-50.1) % MCV (83.0-100.0) fL MCH (28.0-33.3) pg MCHC (31.6-35.5) g/dL RDW (11.5-14.5) % Plt Count (140-400) K/mcL MPV (9.4-12.4) fL Immature Gran % (0-4) % Seg Neutrophils % % Lymphocytes % % Monocytes % % Eosinophils % % Basophils % % Neutrophils # (1.6-8.9) K/mcL Lymphocytes # (0.6-4.6) K/mcL Monocytes # (0.0-1.3) K/mcL Eosinophils # (0.0-0.6) K/mcL Basophils # (0.0-0.2) K/mcL PT 10.6 (9.4-12.1) Seconds INR 0.9 D-Dimer (0-500) ng/mLFEU Sodium (136-145) mEq/L Potassium (3.5-5.1) mEq/L Chloride (98-107) mEq/L Carbon Dioxide (23-29) mEq/L BUN (8-23) mg/dL Creatinine (0.70-1.30) mg/dL Est GFR ( Amer) (> 60) Est GFR (Non-Af Amer) (> 60) BUN/Creatinine Ratio (6-26) Glucose (70-105) mg/dL Calculated Osmolality (280-300) Lactic Acid 0.8 (0.5-2.2) mmol/L Calcium (8.6-10.3) mg/dL Total Bilirubin (0.3-1.0) mg/dL Direct Bilirubin (0.0-0.2) mg/dL Indirect Bilirubin (0.0-1.2) mg/dL AST (13-39) Units/L ALT (7-52) Units/L Alkaline Phosphatase (34-104) Units/L Troponin I (< 0.04) ng/mL B-Natriuretic Peptide 35 (Less than 100) pg/mL Serum Total Protein (6.4-8.9) g/dL Albumin (3.5-5.7) g/dL Globulin (2.4-3.5) g/dL Albumin/Globulin Ratio (1.1-2.2) Ethyl Alcohol (Less than 10) mg/dL 04/04/19 Range/Units 23:45 WBC (4.3-11.1) K/mcL RBC (4.19-5.50) M/mcL Hgb (12.9-16.9) g/dL Hct (37.5-50.1) % MCV (83.0-100.0) fL MCH (28.0-33.3) pg MCHC (31.6-35.5) g/dL RDW (11.5-14.5) % Plt Count (140-400) K/mcL MPV (9.4-12.4) fL Immature Gran % (0-4) % Seg Neutrophils % % Lymphocytes % % Monocytes % % Eosinophils % % Basophils % % Neutrophils # (1.6-8.9) K/mcL Lymphocytes # (0.6-4.6) K/mcL Monocytes # (0.0-1.3) K/mcL Eosinophils # (0.0-0.6) K/mcL Basophils # (0.0-0.2) K/mcL PT (9.4-12.1) Seconds INR D-Dimer (0-500) ng/mLFEU Sodium (136-145) mEq/L Potassium (3.5-5.1) mEq/L Chloride (98-107) mEq/L Carbon Dioxide (23-29) mEq/L BUN (8-23) mg/dL Creatinine (0.70-1.30) mg/dL Est GFR ( Amer) (> 60) Est GFR (Non-Af Amer) (> 60) BUN/Creatinine Ratio (6-26) Glucose (70-105) mg/dL Calculated Osmolality (280-300) Lactic Acid (0.5-2.2) mmol/L Calcium (8.6-10.3) mg/dL Total Bilirubin (0.3-1.0) mg/dL Direct Bilirubin (0.0-0.2) mg/dL Indirect Bilirubin (0.0-1.2) mg/dL AST (13-39) Units/L ALT (7-52) Units/L Alkaline Phosphatase (34-104) Units/L Troponin I (< 0.04) ng/mL B-Natriuretic Peptide (Less than 100) pg/mL Serum Total Protein (6.4-8.9) g/dL Albumin (3.5-5.7) g/dL Globulin (2.4-3.5) g/dL Albumin/Globulin Ratio (1.1-2.2) Ethyl Alcohol < 10 (Less than 10) mg/dL - Radiology Data Radiology results reviewed: Yes I reviewed the patient's radiology results. Single view chest x-rays performed. This demonstrates significant hyperinflation consistent with COPD with some apical emphysema. Imaging is significantly rotated to the left. I do not see focal infiltrates, effusion or pneumothorax. This is on my interpretation. Impressions Chest X-Ray 04/04/19 23:52 IMPRESSION: Negative limited portable chest radiograph. D/ / Nadeem Mckinley MD / Nadeem Mckinley MD Interpreting Provider: Nadeem Mckinley MD - EKG Data EKG attestation: Yes I reviewed and interpreted this EKG. EKG shows normal: Reports: sinus rhythm, axis, intervals, QRS complexes, ST-T waves Rate: Reports: normal (91) Voltage: Reports: c/w LVH Interpretation: Reports: no acute changes, LVH, other (Baseline artifact)
[2019-04-04 23:56] LABS: Basophils % 0.3 %; Eosinophils % 0.4 %; Hematocrit 38.7 % (37.5-50.1); Hemoglobin 13.5 g/dL (12.9-16.9); Immature Granulocytes % 0.4 % (0-4); Mean Corpuscular HGB Conc 34.9 g/dL (31.6-35.5); Mean Corpuscular Hemoglobin 28.5 pg (28.0-33.3); Mean Corpuscular Volume 81.8 fL (83.0-100.0); Mean Platelet Volume 8.8 fL (9.4-12.4); Monocytes # 0.6 K/mcL (0.0-1.3); Monocytes % 6.4 %; Neutrophils # 7.9 K/mcL (1.6-8.9); Platelet Count 263 K/mcL (140-400); Red Blood Count 4.73 M/mcL (4.19-5.50); Red Cell Distribution Width 17.2 % (11.5-14.5); Segmented Neutrophils % 82.5 %; White Blood Count 9.6 K/mcL (4.3-11.1)
[2019-04-05 00:04] LABS: INR 0.9; Prothrombin Time 10.6 Seconds (9.4-12.1)
[2019-04-05] MEDS ORDERED: 0.9 % Sodium Chloride 1,000 ML IVC ONE (00:28)
[2019-04-05] MEDS ORDERED: 0.9 % Sodium Chloride 1,000 ML IVC SCH (00:30)
[2019-04-05 00:39] LABS: Alanine Aminotransferase 20 Units/L (7-52); Albumin 4.3 g/dL (3.5-5.7); Albumin/Globulin Ratio 1.6 (1.1-2.2); Alkaline Phosphatase 67 Units/L (34-104); Aspartate Amino Transferase 35 Units/L (13-39); BUN/Creatinine Ratio 13 (6-26); Bilirubin,Direct 0.1 mg/dL (0.0-0.2); Bilirubin,Indirect 0.5 mg/dL (0.0-1.2); Bilirubin,Total 0.6 mg/dL (0.3-1.0); Blood Urea Nitrogen 6 mg/dL (8-23); Carbon Dioxide 33 mEq/L (23-29); Chloride 77 mEq/L (98-107); Globulin 2.7 g/dL (2.4-3.5); Glucose 116 mg/dL (70-105); Osmolality,Calculated 241 (280-300); Potassium 3.8 mEq/L (3.5-5.1); Sodium 116 mEq/L (136-145); Troponin I < 0.03 ng/mL (< 0.04); eGFR For African Americans > 60 (> 60); eGFR For Non-African Americans > 60 (> 60)
[2019-04-05] MEDS ORDERED: Isovue-370 500 ML BOTTLE IVP ONE ×2 (00:41→01:59)
[2019-04-05] MEDS ORDERED: *HR* Enoxaparin 80 MG/0.8 ML SYRINGE SQ STA (01:21)
[2019-04-05] MEDS ORDERED: *HR* Dextrose 50 % in Water (Syg) 50 ML SYRINGE IVP PRN (01:59)
[2019-04-05] MEDS ORDERED: Naloxone 0.4 MG/ML INJ IVP PRN (01:59)
[2019-04-05] MEDS ORDERED: MOM Conc 10 ML UD.LIQ PO PRN (01:59)
[2019-04-05] MEDS ORDERED: D5% in Water 1,000 ML IVC PRN (01:59)
[2019-04-05] MEDS ORDERED: Ondansetron 4 MG/2 ML VIAL IVP PRN (01:59)
[2019-04-05] MEDS ORDERED: Dextrose Gel 15 GM/37.5 ML TUBE PO PRN ×2 (01:59)
[2019-04-05] MEDS ORDERED: Mag Hydrox/Al Hydrox/Simeth 30 ML UDC PO PRN (01:59)
[2019-04-05] MEDS ORDERED: Albuterol 2.5 MG/3 ML NEBULIZER IH PRN (01:59)
[2019-04-05] MEDS: 0.9 % Sodium Chloride 1,000 ML IVC SCH ×2 (02:22→10:10)
[2019-04-05] MEDS: Ipratropium/Albuterol Neb 3 ML IH SCH ×2 (03:57→09:34)
[2019-04-05] MEDS ORDERED: *HR* Enoxaparin 80 MG/0.8 ML SYRINGE SQ SCH (06:00)
[2019-04-05] MEDS ORDERED: *HR* Dextrose 50 % in Water (Vial) 50 ML VIAL IVP PRN (08:30)
[2019-04-05] MEDS: Insulin LISPRO 300 UNITS/3 ML VIAL SQ SCH ×3 (08:34→16:23)
[2019-04-05] MEDS: *HR* Metformin 500 MG TABLET PO SCH ×2 (08:39→21:46)
[2019-04-05] MEDS: predniSONE 20 MG TABLET PO SCH ×2 (08:39→16:23)
[2019-04-05] MEDS ORDERED: Lisinopril 20 MG TABLET PO SCH (09:00)
--- NOTE | 2019-04-05 12:15 | Internal Med History&Physical ---
Date of Encounter: 04/05/19 Time of Encounter: 11:50 Assessment and Plan (1) Acute exacerbation of chronic obstructive airways disease Current visit: Yes Status: Acute He has been started on IV Rocephin and Zithromax. Lactobacillus will be added. Duonebs and steroids have been ordered. (2) Hyponatremia Current visit: Yes Status: Chronic Acute on chronic. Workup has been ordered. (3) Hypertension Current visit: No Status: Chronic Hold lisinopril due to hyponatremia. Monitor BP and labs Qualifiers: Hypertension type: essential hypertension Qualified Code(s): I10 - Essential (primary) hypertension (4) Weakness Current visit: No Status: Acute PT and OT evaluations have been ordered. (5) DM type 2 (diabetes mellitus, type 2) Current visit: No Status: Chronic Hemoglobin A1c was 6.3% on 02/07/2019. Continue Glucophage and Accu-Cheks with SSI. Qualifiers: Diabetes mellitus intermediate card tender insulin use: without intermediate card tender use Diabetes mellitus complication status: without complication Qualified Code(s): E11.9 - Type 2 diabetes mellitus without complications (6) Right lower lobe lung mass Current visit: No Status: Acute Repeat chest CT scan can be ordered by his PCP as outpatient (7) Elevated d-dimer Current visit: Yes Status: Acute Age-adjusted WNL. Will not workup further. Internal Medicine - H&P: HPI Chief complaint: Dyspnea Admitted From: Emergency Dept Plans for Post Hospital Care: Home History of present illness: Mr. Russell is a 63 year old male who came to emergency room stating he had onset of worsening dyspnea approximately 4 PM while at leisure. He reports feeling chills and a cough productive of white sputum. He denies yellow/green sputum or hemoptysis. He was evaluated in emergency room and was felt to have exacerbation of COPD and acute on chronic hyponatremia. He was admitted to [facility] floor for ongoing care needs. He was hospitalized January 2019 at [facility] with similar complaints. He was discharged to a local SNF and states he remained there for approximately one month but then signed himself out to go home. Respiratory history is significant for having smoked since age 17 up to 3 packs per day. He has not had PFTs. He has oxygen at home which he uses at nighttime and prn during day time. Most recent chest CT 01/18/2018 showed stable 4.2 mm left lower lobe pleural-based nodule and a right lower lobe pleural-based mass measuring 1.7 x 2 cm. Follow-up CT of chest was ordered during a [facility] stay but he could not lie flat to have the study performed due to dyspnea. He is uncertain if he has had OUSMANE testing. Past Med Surg Social Fam HX - Past Medical History Medical history: COPD, diabetes, hyperlipidemia, hypertension Additional medical history: PT UNABLE TO GIVE ACCURATE MEDICAL HISTORY Psychiatric history: anxiety, depression, schizophrenia - Past Surgical History Surgical History: other Additional surgical history: tumor removed from left side of abdomen - Social History Smoking Status: Current every day smoker Smokeless Tobacco Status: No Alcohol use: occasionally Drug use: none Internal Medicine - H&P: Meds Lovastatin [Altoprev] 40 mg PO DAILY 01/18/18 [History] metFORMIN [Glucophage] 500 mg PO BID 01/18/18 [History] Lisinopril [Zestril] 40 mg PO DAILY #30 tablet 01/20/18 [Rx] Ascorbic Acid [Vitamin C] 500 mg PO 0630 tablet 02/13/19 [Rx] Ferrous Sulfate 325 mg PO 0630 tablet 02/13/19 [Rx] Allergy/AdvReac Type Severity Reaction Status Date / Time No Known Allergies Allergy Verified 04/04/19 23:30 All Systems PM: A 10-system review of systems was performed and is negative for pertinent findings except as documented above in the HPI. Review of systems: Review of systems from his recent January 2019 [facility] hospitalization were reviewed and revised as below. Gen.: His weight decreased from 66.5 kg on 07/18/2017 to 59.534 kg December 2017. It has minimally changed to 62.851 kg on admission now. Cardiovascular: He has history of hypertension but denies AL heart failure or an levi DVT or pulmonary embolism. He gets dyspneic on exertion. 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 Respiratory: As per history of present illness GI: He denies disorders of his liver gallbladder or exocrine pancreas : He denies hematuria dysuria or kidney stones. 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 He reports pathology was benign. Neurologic: He denies large distribution strokes or seizures. Endocrine: He was diagnosed with DM 2 approximately 2001. Hemoglobin A1c was 6.3% on 02/07/2019. He denies thyroid disease or hyperlipidemia Hematology/oncology: He denies blood disorders or cancers. Anemia testing 2018 showed iron 14, transferrin saturation 4%, transferrin 229, ferritin 13, B12 285, and folate 9.9. He was started on oral ferrous sulfate with ascorbic acid. Stool guaiac was ordered but not collected during hospitalization. He reports he did not take ferrous sulfate or ascorbic acid after discharge. Psychiatric: He has anxiety depression and schizophrenia. He follows with mental health clinic. Musculoskeletal: He reports occasional pain in his hand but denies significant arthritis gout or other bone joint or muscle disorders. - Constitutional Vitals: Temp Pulse Resp BP Pulse Ox 98.2 F 78 18 124/68 95 04/05/19 10:00 04/05/19 10:00 04/05/19 10:00 04/05/19 10:04/05/19 10:00 Exam: Gen.: He is a well-developed well-nourished male sitting in a chair at bedside who appears slightly dyspneic HEENT: Head is atraumatic and normocephalic. Eyes: EOMI. There is no scleral icterus. Mouth: Mucosa is moist Neck: There is no thyromegaly or adenopathy noted. Heart: Regular without murmurs gallops or ectopics Lungs: He has diminished breath sounds diffusely. No wheezes or crackles are heard. Back: He has dorsal kyphosis. There is no presacral edema. Abdomen: Soft and nontender. Exam is limited because he is in the seated position. Extremities: There is no cyanosis edema or clubbing noted. Dorsalis pedis and posterior tibial pulses are trace palpable bilaterally. Neurologic: Mental status: He is talkative and a good historian. Cranial nerves: Smile is symmetric. Forehead wrinkles bilaterally. Tongue protrudes midline. EOMI. Motor: There is no pronator drift. Cerebellar: Finger to nose is intact bilaterally. Skin: Warm and dry Internal Med - H&P Results - Labs CBC & Chem 7: 04/04/19 23:45 04/04/19 23:45 Labs: Short CBC 04/04/19 Range/Units 23:45 WBC 9.6 (4.3-11.1) K/mcL Hgb 13.5 (12.9-16.9) g/dL Hct 38.7 (37.5-50.1) % Plt Count 263 (140-400) K/mcL Neutrophils # 7.9 (1.6-8.9) K/mcL BMP 04/04/19 23:45 Sodium 116 L* Potassium 3.8 Chloride 77 L Carbon Dioxide 33 H BUN 6 L Creatinine 0.48 L Glucose 116 H Calcium 9.0 Cardiac Enzymes 04/04/19 Range/Units 23:45 Troponin I < 0.03 (< 0.04) ng/mL Liver Function 04/04/19 Range/Units 23:45 Total Bilirubin 0.6 (0.3-1.0) mg/dL Direct Bilirubin 0.1 (0.0-0.2) mg/dL AST 35 (13-39) Units/L ALT 20 (7-52) Units/L Alkaline Phosphatase 67 (34-104) Units/L Albumin 4.3 (3.5-5.7) g/dL - Impressions ITS Impressions Chest X-Ray 04/04/19 23:52 IMPRESSION: Negative limited portable chest radiograph. D/ / Nadeem Mckinley MD / Nadeem Mckinley MD Interpreting Provider: Nadeem Mckinley MD
[2019-04-05 14:21] LABS: Eosinophils % 0.2 %; Hematocrit 35.8 % (37.5-50.1); Hemoglobin 12.1 g/dL (12.9-16.9); Immature Granulocytes % 0.5 % (0-4); Lymphocytes # 0.3 K/mcL (0.6-4.6); Lymphocytes % 4.9 %; Mean Corpuscular HGB Conc 33.8 g/dL (31.6-35.5); Mean Corpuscular Hemoglobin 28.1 pg (28.0-33.3); Mean Corpuscular Volume 83.3 fL (83.0-100.0); Mean Platelet Volume 9.2 fL (9.4-12.4); Monocytes # 0.3 K/mcL (0.0-1.3); Monocytes % 5.3 %; Neutrophils # 4.9 K/mcL (1.6-8.9); Platelet Count 246 K/mcL (140-400); Red Cell Distribution Width 17.5 % (11.5-14.5); Segmented Neutrophils % 89.1 %; White Blood Count 5.5 K/mcL (4.3-11.1)
[2019-04-05 14:46] LABS: Thyroid Stimulating Hormone 0.228 mcIU/mL (0.340-5.600)
[2019-04-05 15:00] LABS: BUN/Creatinine Ratio 14 (6-26); Blood Urea Nitrogen 11 mg/dL (8-23); Calcium 8.5 mg/dL (8.6-10.3); Carbon Dioxide 30 mEq/L (23-29); Chloride 84 mEq/L (98-107); Glucose 203 mg/dL (70-105); Osmolality,Calculated 255 (280-300); Potassium 4.2 mEq/L (3.5-5.1); Sodium 120 mEq/L (136-145); eGFR For African Americans > 60 (> 60); eGFR For Non-African Americans > 60 (> 60)
[2019-04-05] MEDS ORDERED: Azithromycin 500 MG in 0.9 % Sodium Chloride 250 ML IVPB SCH (21:00)
[2019-04-05] MEDS ORDERED: cefTRIAXone 2,000 MG in Water for inj. (sterile) 20 ML IVPB SCH (21:00)
[2019-04-05] MEDS: Lactobacillus 1 EACH CAP.SPRINK PO SCH (21:46)
[2019-04-05 22:56] LABS: Bilirubin,Urine Negative (Negative); Blood,Urine Negative (Negative); Clarity,Urine Clear (Clear); Color,Urine Yellow (Yellow); Glucose,Urine (UA) Normal (Normal); Ketones,Urine Negative (Negative); Leukocyte Esterase,Urine Negative (Negative); Nitrite,Urine Negative (Negative); PH,Urine 6.5 pH Units (5.0-8.0); Protein,Urine Negative (Neg-Trace); Urobilinogen,Urine Normal (Normal)
[2019-04-06] MEDS ORDERED: *HR* Enoxaparin 40 MG/0.4 ML SYRINGE SQ SCH (06:00)
[2019-04-06] MEDS: Insulin LISPRO 300 UNITS/3 ML VIAL SQ SCH ×2 (07:32→11:38)
[2019-04-06] MEDS: *HR* Metformin 500 MG TABLET PO SCH (08:11)
[2019-04-06] MEDS: predniSONE 20 MG TABLET PO SCH (08:11)
[2019-04-06] MEDS: Lactobacillus 1 EACH CAP.SPRINK PO SCH (08:11)
--- NOTE | 2019-04-06 10:08 | Discharge Summary ---
Orders not resulted at time of discharge: Pending orders 04/04/19 23:56 Culture,Blood [] Stat Date of Encounter: 04/06/19 Time of Encounter: 09:55 - Discharge Diagnosis (1) Acute exacerbation of chronic obstructive airways disease Priority: Primary Status: Acute (2) Hyponatremia Priority: Secondary Status: Chronic (3) Hypertension Priority: Secondary Status: Chronic Qualifiers: Hypertension type: essential hypertension Qualified Code(s): I10 - Essential (primary) hypertension (4) Weakness Priority: Secondary Status: Chronic (5) DM type 2 (diabetes mellitus, type 2) Priority: Secondary Status: Chronic Qualifiers: Diabetes mellitus residential insulin use: without watermaster use Diabetes mellitus complication status: without complication Qualified Code(s): E11.9 - Type 2 diabetes mellitus without complications (6) Right lower lobe lung mass Priority: Secondary Status: Acute (7) Elevated d-dimer Priority: Secondary Status: Acute Hospital course: Mr. Russell is a 63 year old male who came to emergency room stating he had onset of worsening dyspnea approximately 4 PM the day of admission while at leisure. He reports feeling chills and a cough productive of white sputum. He denies yellow/green sputum or hemoptysis. He was evaluated in emergency room and was felt to have exacerbation of COPD and acute on chronic hyponatremia. He was admitted to [facility] floor for ongoing care needs. I saw him on April 05 performed a history and physical. He was started on IV Rocephin and Zithromax. Lactobacillus was added. He was given Solu-Medrol in emergency room and continued on prednisone. When I saw him on April 06 he stated his breathing had improved and he fell back to baseline. He wished to be discharged home. He will continue with antibiotic, probiotic, and prednisone for 3 additional days at discharge. He was prescribed scheduled Symbicort and prn Pro Air MDI at discharge. I encouraged him to become a nonsmoker. Review of records showed chest CT 01/18/2018 with a 4.2 mm left lower lobe nodule and a right lower lobe pleural base mass. His PCP can order follow-up chest CT. TSH returned slightly suppressed at 0.228. His PCP can follow up. Lisinopril was held to see if hyponatremia would improved. He will remain off lisinopril at discharge and his PCP can continue to monitor labs. He was asymptomatic from the hyponatremia. Review of past labs show hyponatremia present on all labs since June 2017. Workup for SIADH was ordered with results pending at time of discharge. PT and OT evaluations were done. He declined offer to stay in the hospital and receive therapy. He declined to consider SNF placement. He will be discharged home today and follow with his PCP Nelli Beckett CNP within 1 week. - Time Spent with Patient Total time spent providing and/or coordinating discharge services: - Discharge Medications Prescriptions: New Albuterol Sulfate [Albuterol Sulfate Hfa] 8.5 gm IH Q4H PRN #1 hfa.aer.ad PRN Reason: Dyspnea Cefuroxime PO [Ceftin] 500 mg PO Q12HR #6 tablet Lactobacillus [Culturelle] 1 each PO BID #6 cap.sprink Azithromycin [Zithromax] 250 mg PO DAILY #3 tablet Budesonide/Formoterol 160/4.5 [Symbicort 160/4.5] 1 puff IH BIDR #1 hfa.aer.ad predniSONE [PredniSONE] 10 mg PO BIDWM #6 tablet Continued metFORMIN [Glucophage] 500 mg PO BID Lovastatin [Altoprev] 40 mg PO DAILY Ferrous Sulfate 325 mg PO 0630 #30 tablet Ascorbic Acid [Vitamin C] 500 mg PO 0630 #30 tablet Discontinued Lisinopril [Zestril] 40 mg PO DAILY #30 tablet Home Medications: Lovastatin [Altoprev] 40 mg PO DAILY 01/18/18 [History] metFORMIN [Glucophage] 500 mg PO BID 01/18/18 [History] Albuterol Sulfate [Albuterol Sulfate Hfa] 8.5 gm IH Q4H PRN #1 hfa.aer.ad 04/06/19 [Rx] Ascorbic Acid [Vitamin C] 500 mg PO 0630 #30 tablet 04/06/19 [Rx] Azithromycin [Zithromax] 250 mg PO DAILY #3 tablet 04/06/19 [Rx] Budesonide/Formoterol 160/4.5 [Symbicort 160/4.5] 1 puff IH BIDR #1 hfa.aer.ad 04/06/19 [Rx] Cefuroxime PO [Ceftin] 500 mg PO Q12HR #6 tablet 04/06/19 [Rx] Ferrous Sulfate 325 mg PO 0630 #30 tablet 04/06/19 [Rx] Lactobacillus [Culturelle] 1 each PO BID #6 cap.belink 04/06/19 [Rx] predniSONE [PredniSONE] 10 mg PO BIDWM #6 tablet 04/06/19 [Rx] Allergies/Adverse Reactions: Allergy/AdvReac Type Severity Reaction Status Date / Time No Known Allergies Allergy Verified 04/04/19 23:30 Date of admission: 04/05/19 01:36 Primary care physician: Nelli Beckett CNP Consults: 04/05/19 03:08 Consult to Nutrition [CONS] Routine Comment: Consulting Provider: NUTRITION Reason for Dietary Consult: Diet Education 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 pt states he lives in a camper and his nephew is living with him. 04/05/19 09:57 Consult to Occupational Therapy [CONS] Routine Comment: Evaluate, develop and implement POC Reason for Consult: Dyspnea, weakness Does patient have active BEDREST order?: No Is patient medically & hemodynamically stable?: Yes Patient assessed for mobility or mobilized this visit?: Yes Consult to Physical Therapy [CONS] Routine Comment: Evaluate, develop and implement POC Reason for Consult: Dyspnea, weakness Does patient have active BEDREST order?: No Is patient medically & hemodynamically stable?: Yes Patient assessed for mobility or mobilized this visit?: Yes - Constitutional Vitals: Temp Pulse Resp BP Pulse Ox 97.7 F 73 16 133/74 94 04/06/19 07:09 04/06/19 07:09 04/06/19 07:09 04/06/19 07:09 04/06/19 08:16 - Patient Status Disposition: Home Health Service Condition: Fair - Discharge Instructions Follow Up With: Nelli Beckett CNP [Primary Care Provider] - 1 week - Diet and Activity Activity: resume usual activities as tolerated, wear oxygen at all times Diet: advance to your usual diet
--- NOTE | 2019-04-06 10:20 | Physician Discharge Referral ---
Home Health/Hosp Referral Info Transfer to: Home Health Attending Provider: Francis Provider in Charge Post Discharge: PCP (Sujit) - Diagnosis (1) Acute exacerbation of chronic obstructive airways disease Priority: Primary Status: Acute (2) Hyponatremia Priority: Secondary Status: Chronic (3) Hypertension Priority: Secondary Status: Chronic (4) Weakness Priority: Secondary Status: Chronic (5) DM type 2 (diabetes mellitus, type 2) Priority: Secondary Status: Chronic (6) Right lower lobe lung mass Priority: Secondary Status: Acute (7) Elevated d-dimer Priority: Secondary Status: Acute - Respiratory Orders Oxygen / L per min (2 L/m by nasal cannula 16/01.) Smoking Cessation: Smoking cessation has been advised. For more information, call the Mobile Event [employer] Tobacco Quit Line at 1-049-BXMK-NOW. - Diet/Nutrition Diet/Nutrition Orders: No Concentrated Sweets - Activity Activity Orders: Walker - Services Needed Following services are medically necessary services: Nursing, Home Health Aide, Physical Therapy, Occupational Therapy - Transfer Medications Prescriptions: Albuterol Sulfate [Albuterol Sulfate Hfa] 8.5 gm IH Q4H PRN #1 hfa.aer.ad PRN Reason: Dyspnea Prescription Printed Cefuroxime PO [Ceftin] 500 mg PO Q12HR #6 tablet Prescription Printed Lactobacillus [Culturelle] 1 each PO BID #6 cap.sprink Prescription Printed Ferrous Sulfate 325 mg PO 0630 #30 tablet Prescription Printed predniSONE [PredniSONE] 10 mg PO BIDWM #6 tablet Prescription Printed Budesonide/Formoterol 160/4.5 [Symbicort 160/4.5] 1 puff IH BIDR #1 hfa.aer.ad Prescription Printed Ascorbic Acid [Vitamin C] 500 mg PO 0630 #30 tablet Prescription Printed Azithromycin [Zithromax] 250 mg PO DAILY #3 tablet Prescription Printed Home Medications: Lovastatin [Altoprev] 40 mg PO DAILY 01/18/18 [History] metFORMIN [Glucophage] 500 mg PO BID 01/18/18 [History] Albuterol Sulfate [Albuterol Sulfate Hfa] 8.5 gm IH Q4H PRN #1 hfa.aer.ad 04/06/19 [Rx] Ascorbic Acid [Vitamin C] 500 mg PO 0630 #30 tablet 04/06/19 [Rx] Azithromycin [Zithromax] 250 mg PO DAILY #3 tablet 04/06/19 [Rx] Budesonide/Formoterol 160/4.5 [Symbicort 160/4.5] 1 puff IH BIDR #1 hfa.aer.ad 04/06/19 [Rx] Cefuroxime PO [Ceftin] 500 mg PO Q12HR #6 tablet 04/06/19 [Rx] Ferrous Sulfate 325 mg PO 0630 #30 tablet 04/06/19 [Rx] Lactobacillus [Culturelle] 1 each PO BID #6 cap.sprink 04/06/19 [Rx] predniSONE [PredniSONE] 10 mg PO BIDWM #6 tablet 04/06/19 [Rx] Allergies/Adverse Reactions: Allergy/AdvReac Type Severity Reaction Status Date / Time No Known Allergies Allergy Verified 04/04/19 23:30 Certification: Further, I certify that my clinical findings support that this patient is homebound (i.e. absences from home require considerable and taxing effort and are for medical reasons or [employer] services or infrequently or short duration when for other reasons) because: Homebound Reason: Leaving home requires considerable and taxing effort due to condition (Severe COPD) Attestation: My signature below is to certify that this patient is under my care and that I, or nurse practitioner, or a physician's education assistant working with me, has a [id number] encounter with this patient.
[2019-04-06 11:28] VITALS: BP 149/69
--- NOTE | 2019-04-06 11:39 | Electrocardiograph Report ---
[place] [id number] Test Date: 2019-04-04 Pat Name: Angel Russell Department: EDP-14 Room: [facility] Gender: M Vp Of Marketing: : 1955 Requested By: Reynaldo Spivey Order Number: [id number] Reading MD: Talat Almaraz Measurements Intervals [place] Rate: 91 P: 67 NV: 160 QRS: 74 QRSD: 88 T: 69 QT: 338 QTc: 416 Interpretive Statements Sinus rhythm Left ventricular hypertrophy Electronically Signed On 04-06-2019 11:38:12 EDT by Talat Almaraz
== END 2019-04-06 12:26 | disposition home health service (06) ==
LOC: EMEROOPIK 23:27 → INPPIK 23:27
PROVIDERS: ADMIT Internal Medicine; ATTEND Internal Medicine

== ENCOUNTER 2020-06-30 19:34 | Inpatient (IN) ==
[2020-06-30] MEDS ORDERED: Azithromycin 500 MG in D5% in Water 250 ML IVPB ONE (19:42)
[2020-06-30] MEDS ORDERED: Ipratropium/Albuterol Neb 3 ML IH ONE (19:42)
[2020-06-30] MEDS ORDERED: methylPREDNISolone 125 MG/2 ML VIAL IVP ONE (19:42)
[2020-06-30] MEDS ORDERED: 0.9 % Sodium Chloride 1,000 ML IVC SCH (19:45)
[2020-06-30] MEDS ORDERED: Ipratropium/Albuterol Neb 3 ML ONE (19:45)
[2020-06-30 20:07] LABS: Basophils % 0.4 %; Eosinophils # 0.1 K/mcL (0.0-0.6); Hematocrit 35.4 % (37.5-50.1); Hemoglobin 11.6 g/dL (12.9-16.9); Immature Granulocytes % 0.4 % (0-4); Lymphocytes # 1.4 K/mcL (0.6-4.6); Mean Corpuscular HGB Conc 32.8 g/dL (31.6-35.5); Mean Corpuscular Hemoglobin 30.8 pg (28.0-33.3); Mean Corpuscular Volume 93.9 fL (83.0-100.0); Mean Platelet Volume 9.5 fL (9.4-12.4); Monocytes # 0.9 K/mcL (0.0-1.3); Monocytes % 9.6 %; Neutrophils # 6.7 K/mcL (1.6-8.9); Platelet Count 223 K/mcL (140-400); Red Blood Count 3.77 M/mcL (4.19-5.50); Red Cell Distribution Width 13.1 % (11.5-14.5); Segmented Neutrophils % 73.6 %; White Blood Count 9.1 K/mcL (4.3-11.1)
[2020-06-30 20:07] LABS: ABG Base Excess 13 mEq/L (-2 to 3); ABG HCO3 45 mEq/L (21-27); ABG Oxygen Saturation 99 % (95-98); ABG PCO2 107 mmHg (35-45); ABG PH 7.24 pH Units (7.32-7.45); ABG PO2 205 mmHg (85-104); ABG TCO2 49 mEq/L (20-26)
[2020-06-30 20:18] LABS: Prothrombin Time 11.3 Seconds (9.4-12.1)
[2020-06-30 20:45] LABS: Alanine Aminotransferase 17 Units/L (7-52); Albumin/Globulin Ratio 1.6 (1.1-2.2); Alkaline Phosphatase 55 Units/L (34-104); Aspartate Amino Transferase 25 Units/L (13-39); BUN/Creatinine Ratio 34 (6-26); Bilirubin,Total 0.4 mg/dL (0.3-1.0); Blood Urea Nitrogen 15 mg/dL (8-23); Calcium 9.1 mg/dL (8.6-10.3); Carbon Dioxide 43 mEq/L (23-29); Chloride 86 mEq/L (98-107); Globulin 2.5 g/dL (2.4-3.5); Glucose 139 mg/dL (70-105); Osmolality,Calculated 273 (280-300); Potassium 4.3 mEq/L (3.5-5.1); Sodium 130 mEq/L (136-145); Total Protein 6.5 g/dL (6.4-8.9); eGFR For African Americans > 60 (> 60); eGFR For Non-African Americans > 60 (> 60)
[2020-06-30 20:49] LABS: Bilirubin,Urine Small (Negative); Blood,Urine Negative (Negative); Clarity,Urine Clear (Clear); Color,Urine Yellow (Yellow); Glucose,Urine (UA) Normal (Normal); Ketones,Urine 15 mg/dL (Negative); Leukocyte Esterase,Urine Negative (Negative); Nitrite,Urine Negative (Negative); PH,Urine 6.5 pH Units (5.0-8.0); Protein,Urine 30 mg/dL (Neg-Trace); Specific Gravity,Urine 1.025 (1.010-1.025); Urobilinogen,Urine Normal (Normal)
[2020-06-30 20:56] LABS: Hyaline Casts,Urine Few per lpf (None Seen); Mucus,Urine Many per lpf (None-Few); RBC,Urine 0-3 per hpf (0-3); Squamous Epithelial Cell,Urine Few per hpf (None-Few); WBC,Urine 0-3 per hpf (0-3)
[2020-06-30 20:57] LABS: Bacteria,Urine Few per hpf (None-Few)
[2020-07-01] MEDS ORDERED: Ondansetron ODT 4 MG TAB.RAPDIS SL PRN (00:27)
[2020-07-01] MEDS ORDERED: Acetaminophen 325 MG TABLET PO PRN (00:27)
[2020-07-01] MEDS ORDERED: Ipratropium/Albuterol Neb 3 ML ONE (00:27)
[2020-07-01] MEDS ORDERED: Naloxone 0.4 MG/ML INJ IVP PRN (00:27)
[2020-07-01] MEDS: Budesonide/Formoterol 160/4.5 1 PUFF INH IH SCH ×4 (01:07→22:00)
[2020-07-01] MEDS: Ipratropium/Albuterol Neb 3 ML IH SCH ×2 (01:07→04:07)
[2020-07-01] MEDS: MethylPREDNISolone 40 MG/ML VIAL IVP SCH ×4 (01:25→16:53)
[2020-07-01] MEDS: 0.9 % Sodium Chloride 1,000 ML IVC SCH ×3 (01:25→16:53)
[2020-07-01 01:47] LABS: BUN/Creatinine Ratio 31 (6-26); Blood Urea Nitrogen 14 mg/dL (8-23); Calcium 8.7 mg/dL (8.6-10.3); Carbon Dioxide 38 mEq/L (23-29); Chloride 89 mEq/L (98-107); Glucose 136 mg/dL (70-105); Magnesium 1.8 mg/dL (1.6-2.6); Osmolality,Calculated 277 (280-300); Potassium 4.7 mEq/L (3.5-5.1); Sodium 132 mEq/L (136-145); eGFR For African Americans > 60 (> 60); eGFR For Non-African Americans > 60 (> 60)
[2020-07-01 07:50] LABS: BUN/Creatinine Ratio 29 (6-26); Blood Urea Nitrogen 12 mg/dL (8-23); Calcium 8.4 mg/dL (8.6-10.3); Carbon Dioxide 40 mEq/L (23-29); Chloride 91 mEq/L (98-107); Glucose 130 mg/dL (70-105); Osmolality,Calculated 278 (280-300); Potassium 4.9 mEq/L (3.5-5.1); Sodium 133 mEq/L (136-145); eGFR For African Americans > 60 (> 60); eGFR For Non-African Americans > 60 (> 60)
[2020-07-01] MEDS: lisinopriL 20 MG TABLET PO SCH (09:22)
[2020-07-01] MEDS: *HR* Metformin 500 MG TABLET PO SCH ×2 (09:22→16:52)
[2020-07-01] MEDS: Azithromycin 250 MG TABLET PO SCH (09:22)
[2020-07-01] MEDS: Lactobacillus 1 EACH CAP.SPRINK PO SCH ×2 (09:22→19:51)
[2020-07-01] MEDS: Tiotropium 10 INH DOSE IH SCH (10:23)
[2020-07-01] MEDS: Albuterol 2.5 MG/3 ML NEBULIZER IH PRN ×2 (10:25→22:00)
[2020-07-01] MEDS: Latanoprost 2.5 ML BOTTLE BOTH EYES SCH (19:51)
[2020-07-01] MEDS: cefTRIAXone 1,000 MG in Water for inj. (sterile) 10 ML IVP SCH (19:51)
[2020-07-01] MEDS ORDERED: NON-FORMULARY MEDICATION 1 EACH EACH (Lovastatin [Altoprev] 40 MG) PO SCH (21:00)
[2020-07-02] MEDS: MethylPREDNISolone 40 MG/ML VIAL IVP SCH ×5 (00:14→23:30)
[2020-07-02] MEDS: 0.9 % Sodium Chloride 1,000 ML IVC SCH ×3 (03:26→11:14)
[2020-07-02] MEDS: lisinopriL 20 MG TABLET PO SCH (08:40)
[2020-07-02] MEDS: Azithromycin 250 MG TABLET PO SCH (08:40)
[2020-07-02] MEDS: *HR* Metformin 500 MG TABLET PO SCH ×2 (08:40→17:29)
[2020-07-02] MEDS: Lactobacillus 1 EACH CAP.SPRINK PO SCH ×2 (08:40→21:04)
[2020-07-02] MEDS: Albuterol 2.5 MG/3 ML NEBULIZER IH PRN ×2 (08:59→15:03)
[2020-07-02] MEDS: Tiotropium 10 INH DOSE IH SCH (09:00)
[2020-07-02] MEDS: Budesonide/Formoterol 160/4.5 1 PUFF INH IH SCH ×2 (09:00→22:40)
[2020-07-02 10:53] LABS: Mean Corpuscular HGB Conc 32.7 g/dL (31.6-35.5); Mean Corpuscular Hemoglobin 30.5 pg (28.0-33.3); Mean Corpuscular Volume 93.5 fL (83.0-100.0); Mean Platelet Volume 9.7 fL (9.4-12.4); Platelet Count 210 K/mcL (140-400); Red Blood Count 3.21 M/mcL (4.19-5.50); Red Cell Distribution Width 13.7 % (11.5-14.5); White Blood Count 10.6 K/mcL (4.3-11.1)
[2020-07-02 10:54] LABS: Hemoglobin 9.8 g/dL (12.9-16.9)
[2020-07-02 11:13] LABS: BUN/Creatinine Ratio 25 (6-26); Blood Urea Nitrogen 13 mg/dL (8-23); Calcium 8.4 mg/dL (8.6-10.3); Carbon Dioxide 35 mEq/L (23-29); Chloride 91 mEq/L (98-107); Glucose 177 mg/dL (70-105); Osmolality,Calculated 274 (280-300); Potassium 4.5 mEq/L (3.5-5.1); Sodium 130 mEq/L (136-145); eGFR For African Americans > 60 (> 60); eGFR For Non-African Americans > 60 (> 60)
[2020-07-02 11:34] LABS: ABG Base Excess 6 mEq/L (-2 to 3); ABG HCO3 33 mEq/L (21-27); ABG Oxygen Saturation 94 % (95-98); ABG PCO2 59 mmHg (35-45); ABG PH 7.36 pH Units (7.32-7.45); ABG PO2 77 mmHg (85-104); ABG TCO2 35 mEq/L (20-26)
[2020-07-02] MEDS: cefTRIAXone 1,000 MG in Water for inj. (sterile) 10 ML IVP SCH (21:04)
[2020-07-02] MEDS: Latanoprost 2.5 ML BOTTLE BOTH EYES SCH (21:15)
[2020-07-03] MEDS: MethylPREDNISolone 40 MG/ML VIAL IVP SCH ×2 (05:19→12:05)
[2020-07-03 06:48] VITALS: BP 136/85
[2020-07-03] MEDS: Budesonide/Formoterol 160/4.5 1 PUFF INH IH SCH (07:40)
[2020-07-03] MEDS: Tiotropium 10 INH DOSE IH SCH (07:41)
[2020-07-03 08:52] LABS: Hemoglobin 10.8 g/dL (12.9-16.9); Mean Corpuscular HGB Conc 33.8 g/dL (31.6-35.5); Mean Corpuscular Hemoglobin 30.7 pg (28.0-33.3); Mean Corpuscular Volume 90.9 fL (83.0-100.0); Mean Platelet Volume 9.3 fL (9.4-12.4); Platelet Count 206 K/mcL (140-400); Red Blood Count 3.52 M/mcL (4.19-5.50); Red Cell Distribution Width 13.5 % (11.5-14.5); White Blood Count 8.7 K/mcL (4.3-11.1)
[2020-07-03] MEDS: lisinopriL 20 MG TABLET PO SCH (08:54)
[2020-07-03] MEDS: *HR* Metformin 500 MG TABLET PO SCH (08:54)
[2020-07-03] MEDS: Azithromycin 250 MG TABLET PO SCH (08:54)
[2020-07-03] MEDS: Lactobacillus 1 EACH CAP.SPRINK PO SCH (08:54)
[2020-07-03 09:30] LABS: BUN/Creatinine Ratio 20 (6-26); Blood Urea Nitrogen 10 mg/dL (8-23); Calcium 8.6 mg/dL (8.6-10.3); Carbon Dioxide 40 mEq/L (23-29); Chloride 87 mEq/L (98-107); Glucose 180 mg/dL (70-105); Osmolality,Calculated 272 (280-300); Potassium 4.6 mEq/L (3.5-5.1); Sodium 129 mEq/L (136-145); eGFR For African Americans > 60 (> 60); eGFR For Non-African Americans > 60 (> 60)
[2020-07-13] MEDS ORDERED: RISPERIDONE MICROSPHERES IM SCH (09:00)
== END 2020-07-03 13:40 | DRG 140 ==
LOC: INPPIK 19:34 → EMEROOPIK 19:34 → OBSVTOIN 21:58 → INPPIK 22:15
PROVIDERS: ADMIT Family Medicine; ATTEND Family Medicine

== ENCOUNTER 2021-10-01 10:54 | Inpatient (IN) ==
[2021-10-01] MEDS ORDERED: Ipratropium/Albuterol Neb 3 ML IH ONE ×2 (11:08→11:09)
[2021-10-01] MEDS ORDERED: 0.9 % Sodium Chloride 1,000 ML IV ONE (11:09)
[2021-10-01] MEDS ORDERED: Ipratropium/Albuterol Neb 3 ML ONE (11:09)
[2021-10-01 11:30] LABS: ABG Base Excess 12 mEq/L (-2 to 3); ABG HCO3 41 mEq/L (21-27); ABG Oxygen Saturation 97 % (95-98); ABG PCO2 75 mmHg (35-45); ABG PH 7.35 pH Units (7.32-7.45); ABG PO2 102 mmHg (85-104); ABG TCO2 43 mEq/L (20-26); Blood Gas FiO2 2.5 (1-15=lpm or21-100=%)
[2021-10-01 11:31] LABS: Basophils % 0.5 %; Eosinophils # 0.1 K/mcL (0.0-0.6); Eosinophils % 1.1 %; Hematocrit 41.8 % (37.5-50.1); Hemoglobin 12.5 g/dL (12.9-16.9); Immature Granulocytes % 0.3 % (0-4); Lymphocytes # 0.7 K/mcL (0.6-4.6); Lymphocytes % 8.3 %; Mean Corpuscular HGB Conc 29.9 g/dL (31.6-35.5); Mean Corpuscular Hemoglobin 27.8 pg (28.0-33.3); Mean Corpuscular Volume 93.1 fL (83.0-100.0); Monocytes # 0.6 K/mcL (0.0-1.3); Monocytes % 7.3 %; Neutrophils # 6.6 K/mcL (1.6-8.9); Platelet Count 218 K/mcL (140-400); Red Blood Count 4.49 M/mcL (4.19-5.50); Red Cell Distribution Width 15.5 % (11.5-14.5); Segmented Neutrophils % 82.5 %
[2021-10-01 11:39] LABS: Prothrombin Time 10.6 Seconds (9.4-12.1)
[2021-10-01 11:41] LABS: Activated Partial Thrombo Time 31.4 Seconds (26.0-36.0)
[2021-10-01 11:49] LABS: Troponin I < 0.03 ng/mL (< 0.04)
[2021-10-01 11:52] LABS: Alanine Aminotransferase 11 Units/L (7-52); Albumin 3.4 g/dL (3.5-5.7); Albumin/Globulin Ratio 1.3 (1.1-2.2); Alkaline Phosphatase 48 Units/L (34-104); Aspartate Amino Transferase 15 Units/L (13-39); BUN/Creatinine Ratio 30 (6-26); Bilirubin,Total 0.3 mg/dL (0.3-1.0); Blood Urea Nitrogen 16 mg/dL (8-23); Calcium 8.7 mg/dL (8.6-10.3); Carbon Dioxide 43 mEq/L (23-29); Chloride 94 mEq/L (98-107); Globulin 2.7 g/dL (2.4-3.5); Glucose 93 mg/dL (70-105); Osmolality,Calculated 289 (280-300); Phosphorous 3.1 mg/dL (2.7-4.5); Potassium 4.7 mEq/L (3.5-5.1); Sodium 139 mEq/L (136-145); Total Protein 6.1 g/dL (6.4-8.9); eGFR For African Americans > 60 (> 60); eGFR For Non-African Americans > 60 (> 60)
[2021-10-01] MEDS ORDERED: Isovue-370 500 ML BOTTLE IVP ONE (12:13)
[2021-10-01] MEDS ORDERED: Naloxone 0.4 MG/ML INJ IVP PRN (13:54)
[2021-10-01] MEDS ORDERED: Ipratropium/Albuterol Neb 3 ML IH PRN (13:57)
[2021-10-01] MEDS ORDERED: *HR* Dextrose 50 % in Water (Syg) 50 ML SYRINGE IVP PRN (13:58)
[2021-10-01] MEDS ORDERED: D5% in Water 1,000 ML IVC PRN (13:58)
[2021-10-01] MEDS ORDERED: Dextrose 4 GM Chewable Tablets PO PRN ×2 (13:58)
[2021-10-01] MEDS ORDERED: RISPERIDONE MICROSPHERES IM SCH (14:00)
[2021-10-01 16:32] LABS: % Iron Saturation 5 % (20-55); Iron 11 mcg/dL (65-175); Transferrin 170 mg/dL (203-362)
[2021-10-01 16:48] LABS: Ferritin 65 ng/mL (20-250)
[2021-10-01] MEDS: Insulin LISPRO 300 UNITS/3 ML VIAL SUBQ SCH ×2 (16:53→21:04)
[2021-10-01] MEDS: 0.9 % Sodium Chloride 1,000 ML IVC SCH (16:54)
[2021-10-01] MEDS: Azithromycin 500 MG in 0.9 % Sodium Chloride 250 ML IVPB SCH (16:54)
[2021-10-01 17:08] LABS: Bilirubin,Urine Small (Negative); Blood,Urine Negative (Negative); Clarity,Urine Clear (Clear); Color,Urine Yellow (Yellow); Glucose,Urine (UA) Normal (Normal); Ketones,Urine Negative (Negative); Leukocyte Esterase,Urine Negative (Negative); Nitrite,Urine Negative (Negative); Protein,Urine Trace mg/dL (Neg-Trace); Specific Gravity,Urine 1.015 (1.010-1.025)
[2021-10-01] MEDS: Nicotine 14 MG PATCH.TD24 TD SCH (18:58)
[2021-10-01] MEDS: MethylPREDNISolone 40 MG/ML VIAL IVP SCH (19:07)
[2021-10-01] MEDS: Mirtazapine 15 MG TABLET PO SCH (21:04)
[2021-10-01] MEDS: Budesonide/Formoterol 160/4.5 1 PUFF INH IH SCH (21:10)
[2021-10-02 00:26] LABS: Adenovirus Not Detected (Not Detect); Bordetella Pertussis Not Detected (Not Detect); Chlamydophila pneumoniae Not Detected (Not Detect); Coronavirus 229E Not Detected (Not Detect); Coronavirus HKU1 Not Detected (Not Detect); Coronavirus NL63 Not Detected (Not Detect); Coronavirus OC43 Not Detected (Not Detect); Human Metapneumovirus Not Detected (Not Detect); Human Rhinovirus/Enterovirus Not Detected (Not Detect); Influenza A Subtype 2009 H1 Not Detected (Not Detect); Influenza B Not Detected (Not Detect); Mycoplasma pneumoniae Not Detected (Not Detect); Parainfluenza Virus 1 Not Detected (Not Detect); Parainfluenza Virus 2 Not Detected (Not Detect); Parainfluenza Virus 3 Not Detected (Not Detect); Parainfluenza Virus 4 Not Detected (Not Detect); Respiratory Syncytial Virus Not Detected (Not Detect); SARS-CoV-2 Not Detected (Not Detect)
[2021-10-02] MEDS: MethylPREDNISolone 40 MG/ML VIAL IVP SCH ×4 (01:20→19:50)
[2021-10-02] MEDS: 0.9 % Sodium Chloride 1,000 ML IVC SCH ×2 (01:21→14:29)
[2021-10-02] MEDS: *HR* Enoxaparin 40 MG/0.4 ML SYRINGE SQ SCH (06:53)
[2021-10-02 07:21] LABS: Hematocrit 31.3 % (37.5-50.1); Hemoglobin 9.5 g/dL (12.9-16.9); Immature Granulocytes % 0.5 % (0-4); Lymphocytes # 0.3 K/mcL (0.6-4.6); Lymphocytes % 4.4 %; Mean Corpuscular HGB Conc 30.4 g/dL (31.6-35.5); Mean Corpuscular Hemoglobin 27.9 pg (28.0-33.3); Mean Corpuscular Volume 91.8 fL (83.0-100.0); Mean Platelet Volume 10.7 fL (9.4-12.4); Monocytes # 0.1 K/mcL (0.0-1.3); Monocytes % 1.7 %; Neutrophils # 6.2 K/mcL (1.6-8.9); Platelet Count 196 K/mcL (140-400); Red Blood Count 3.41 M/mcL (4.19-5.50); Red Cell Distribution Width 15.5 % (11.5-14.5); Segmented Neutrophils % 93.4 %; White Blood Count 6.7 K/mcL (4.3-11.1)
[2021-10-02 07:48] LABS: BUN/Creatinine Ratio 38 (6-26); Blood Urea Nitrogen 20 mg/dL (8-23); Calcium 8.1 mg/dL (8.6-10.3); Carbon Dioxide 37 mEq/L (23-29); Chloride 98 mEq/L (98-107); Glucose 127 mg/dL (70-105); Magnesium 1.9 mg/dL (1.6-2.6); Osmolality,Calculated 286 (280-300); Potassium 4.5 mEq/L (3.5-5.1); Sodium 136 mEq/L (136-145); eGFR For African Americans > 60 (> 60); eGFR For Non-African Americans > 60 (> 60)
[2021-10-02] MEDS: Insulin LISPRO 300 UNITS/3 ML VIAL SUBQ SCH ×4 (08:27→20:00)
[2021-10-02] MEDS ORDERED: Moderna Covid-19 Vaccine 100MCG/0.5mL IM ONE (09:00)
[2021-10-02] MEDS: Budesonide/Formoterol 160/4.5 1 PUFF INH IH SCH ×2 (09:23→21:34)
[2021-10-02] MEDS: lisinopriL 20 MG TABLET PO SCH (12:54)
[2021-10-02] MEDS: Nicotine 14 MG PATCH.TD24 TD SCH (12:55)
[2021-10-02] MEDS: Azithromycin 500 MG in 0.9 % Sodium Chloride 250 ML IVPB SCH (14:58)
[2021-10-02] MEDS: *HR* LORazepam 0.5 MG TABLET PO PRN (15:42)
[2021-10-02] MEDS: Piperacillin/Tazobactam 3.375 GM in 0.9 % Sodium Chloride Mini Bag 100 ML IVPB SCH (15:43)
[2021-10-02] MEDS: Ipratropium/Albuterol Neb 3 ML IH SCH ×2 (16:10→21:34)
[2021-10-02] MEDS: Mirtazapine 15 MG TABLET PO SCH (19:50)
[2021-10-02] MEDS: Acetaminophen 325 MG TABLET PO PRN (20:13)
[2021-10-03] MEDS: Piperacillin/Tazobactam 3.375 GM in 0.9 % Sodium Chloride Mini Bag 100 ML IVPB SCH ×3 (00:43→17:12)
[2021-10-03] MEDS: MethylPREDNISolone 40 MG/ML VIAL IVP SCH ×4 (00:43→17:11)
[2021-10-03] MEDS: Ipratropium/Albuterol Neb 3 ML IH SCH ×4 (03:45→21:29)
[2021-10-03] MEDS: *HR* Enoxaparin 40 MG/0.4 ML SYRINGE SQ SCH (06:49)
[2021-10-03 07:34] LABS: Basophils % 0.1 %; Hematocrit 34.9 % (37.5-50.1); Hemoglobin 10.6 g/dL (12.9-16.9); Immature Granulocytes % 0.5 % (0-4); Lymphocytes # 0.3 K/mcL (0.6-4.6); Lymphocytes % 3.2 %; Mean Corpuscular HGB Conc 30.4 g/dL (31.6-35.5); Mean Corpuscular Hemoglobin 27.5 pg (28.0-33.3); Mean Corpuscular Volume 90.6 fL (83.0-100.0); Mean Platelet Volume 10.3 fL (9.4-12.4); Monocytes # 0.3 K/mcL (0.0-1.3); Monocytes % 2.6 %; Neutrophils # 9.9 K/mcL (1.6-8.9); Platelet Count 259 K/mcL (140-400); Red Blood Count 3.85 M/mcL (4.19-5.50); Red Cell Distribution Width 15.4 % (11.5-14.5); Segmented Neutrophils % 93.6 %; White Blood Count 10.6 K/mcL (4.3-11.1)
[2021-10-03] MEDS: Insulin LISPRO 300 UNITS/3 ML VIAL SUBQ SCH ×4 (07:48→19:35)
[2021-10-03] MEDS: lisinopriL 20 MG TABLET PO SCH (07:49)
[2021-10-03] MEDS: Nicotine 14 MG PATCH.TD24 TD SCH (07:51)
[2021-10-03 07:55] LABS: BUN/Creatinine Ratio 29 (6-26); Blood Urea Nitrogen 15 mg/dL (8-23); Calcium 8.9 mg/dL (8.6-10.3); Carbon Dioxide 39 mEq/L (23-29); Chloride 92 mEq/L (98-107); Glucose 126 mg/dL (70-105); Osmolality,Calculated 278 (280-300); Potassium 4.5 mEq/L (3.5-5.1); Sodium 133 mEq/L (136-145); eGFR For African Americans > 60 (> 60); eGFR For Non-African Americans > 60 (> 60)
[2021-10-03] MEDS: Budesonide/Formoterol 160/4.5 1 PUFF INH IH SCH ×2 (09:16→21:29)
[2021-10-03] MEDS: amLODIPine 5 MG TABLET PO SCH (11:52)
[2021-10-03] MEDS: Acetaminophen 325 MG TABLET PO PRN (19:33)
[2021-10-03] MEDS: *HR* LORazepam 0.5 MG TABLET PO PRN (19:34)
[2021-10-03] MEDS: Mirtazapine 15 MG TABLET PO SCH (19:58)
[2021-10-03] MEDS: GuaiFENesin/Codeine Oral Soln 5 ML UDC PO PRN (19:58)
[2021-10-04] MEDS: Piperacillin/Tazobactam 3.375 GM in 0.9 % Sodium Chloride Mini Bag 100 ML IVPB SCH ×3 (00:15→16:03)
[2021-10-04] MEDS: MethylPREDNISolone 40 MG/ML VIAL IVP SCH ×3 (00:16→16:11)
[2021-10-04] MEDS: Ipratropium/Albuterol Neb 3 ML IH SCH ×3 (04:29→15:14)
[2021-10-04] MEDS: *HR* Enoxaparin 40 MG/0.4 ML SYRINGE SQ SCH (05:35)
[2021-10-04] MEDS: *HR* LORazepam 0.5 MG TABLET PO PRN (05:46)
[2021-10-04 07:31] LABS: Basophils % 0.1 %; Hematocrit 36.6 % (37.5-50.1); Hemoglobin 11.6 g/dL (12.9-16.9); Immature Granulocytes % 0.7 % (0-4); Lymphocytes # 0.4 K/mcL (0.6-4.6); Lymphocytes % 3.7 %; Mean Corpuscular HGB Conc 31.7 g/dL (31.6-35.5); Mean Corpuscular Hemoglobin 28.1 pg (28.0-33.3); Mean Corpuscular Volume 88.6 fL (83.0-100.0); Mean Platelet Volume 10.1 fL (9.4-12.4); Monocytes # 0.4 K/mcL (0.0-1.3); Monocytes % 3.8 %; Neutrophils # 9.8 K/mcL (1.6-8.9); Platelet Count 293 K/mcL (140-400); Red Blood Count 4.13 M/mcL (4.19-5.50); Red Cell Distribution Width 15.2 % (11.5-14.5); Segmented Neutrophils % 91.7 %; White Blood Count 10.7 K/mcL (4.3-11.1)
[2021-10-04 07:57] LABS: BUN/Creatinine Ratio 35 (6-26); Blood Urea Nitrogen 21 mg/dL (8-23); Calcium 8.8 mg/dL (8.6-10.3); Carbon Dioxide 42 mEq/L (23-29); Chloride 92 mEq/L (98-107); Glucose 120 mg/dL (70-105); Osmolality,Calculated 280 (280-300); Potassium 4.8 mEq/L (3.5-5.1); Sodium 133 mEq/L (136-145); eGFR For African Americans > 60 (> 60); eGFR For Non-African Americans > 60 (> 60)
[2021-10-04] MEDS: Insulin LISPRO 300 UNITS/3 ML VIAL SUBQ SCH ×4 (08:03→20:41)
[2021-10-04] MEDS: lisinopriL 20 MG TABLET PO SCH (08:10)
[2021-10-04] MEDS: amLODIPine 5 MG TABLET PO SCH (08:11)
[2021-10-04] MEDS: Nicotine 14 MG PATCH.TD24 TD SCH (08:22)
[2021-10-04] MEDS: Budesonide/Formoterol 160/4.5 1 PUFF INH IH SCH ×2 (08:42→22:06)
[2021-10-04] MEDS ORDERED: Ipratropium/Albuterol Neb 3 ML IH PRN (18:06)
[2021-10-04] MEDS: Azithromycin 250 MG TABLET PO SCH (18:38)
[2021-10-04] MEDS: Mirtazapine 15 MG TABLET PO SCH (20:40)
[2021-10-05] MEDS: MethylPREDNISolone 40 MG/ML VIAL IVP SCH ×3 (00:32→15:47)
[2021-10-05] MEDS: Piperacillin/Tazobactam 3.375 GM in 0.9 % Sodium Chloride Mini Bag 100 ML IVPB SCH ×3 (00:32→15:47)
[2021-10-05] MEDS: *HR* Enoxaparin 40 MG/0.4 ML SYRINGE SQ SCH (06:40)
[2021-10-05 07:18] LABS: Basophils % 0.1 %; Hematocrit 36.7 % (37.5-50.1); Hemoglobin 11.7 g/dL (12.9-16.9); Immature Granulocytes % 0.4 % (0-4); Lymphocytes # 0.4 K/mcL (0.6-4.6); Lymphocytes % 3.7 %; Mean Corpuscular HGB Conc 31.9 g/dL (31.6-35.5); Mean Corpuscular Volume 87.8 fL (83.0-100.0); Mean Platelet Volume 9.8 fL (9.4-12.4); Monocytes # 0.3 K/mcL (0.0-1.3); Monocytes % 3.2 %; Neutrophils # 9.1 K/mcL (1.6-8.9); Platelet Count 298 K/mcL (140-400); Red Blood Count 4.18 M/mcL (4.19-5.50); Red Cell Distribution Width 15.4 % (11.5-14.5); Segmented Neutrophils % 92.6 %; White Blood Count 9.8 K/mcL (4.3-11.1)
[2021-10-05] MEDS: Insulin LISPRO 300 UNITS/3 ML VIAL SUBQ SCH ×4 (07:46→20:54)
[2021-10-05 07:59] LABS: BUN/Creatinine Ratio 38 (6-26); Blood Urea Nitrogen 21 mg/dL (8-23); Calcium 8.7 mg/dL (8.6-10.3); Carbon Dioxide 42 mEq/L (23-29); Chloride 92 mEq/L (98-107); Glucose 121 mg/dL (70-105); Osmolality,Calculated 282 (280-300); Potassium 4.8 mEq/L (3.5-5.1); Sodium 134 mEq/L (136-145); eGFR For African Americans > 60 (> 60); eGFR For Non-African Americans > 60 (> 60)
[2021-10-05] MEDS: lisinopriL 20 MG TABLET PO SCH (08:28)
[2021-10-05] MEDS: amLODIPine 5 MG TABLET PO SCH (08:28)
[2021-10-05] MEDS: Azithromycin 250 MG TABLET PO SCH (08:28)
[2021-10-05] MEDS: Nicotine 14 MG PATCH.TD24 TD SCH (08:29)
[2021-10-05] MEDS: Budesonide/Formoterol 160/4.5 1 PUFF INH IH SCH ×2 (10:08→22:09)
[2021-10-05] MEDS: Acetaminophen 325 MG TABLET PO PRN (15:46)
[2021-10-05] MEDS ORDERED: Moderna Covid-19 Vaccine 100MCG/0.5mL IM ONE (18:00)
[2021-10-05] MEDS: Mirtazapine 15 MG TABLET PO SCH (21:28)
[2021-10-06] MEDS: MethylPREDNISolone 40 MG/ML VIAL IVP SCH ×3 (00:04→16:54)
[2021-10-06] MEDS: Piperacillin/Tazobactam 3.375 GM in 0.9 % Sodium Chloride Mini Bag 100 ML IVPB SCH ×3 (00:04→16:53)
[2021-10-06] MEDS: *HR* Enoxaparin 40 MG/0.4 ML SYRINGE SQ SCH ×2 (05:38→07:58)
[2021-10-06] MEDS: Nicotine 14 MG PATCH.TD24 TD SCH (07:57)
[2021-10-06] MEDS: Insulin LISPRO 300 UNITS/3 ML VIAL SUBQ SCH ×4 (07:58→21:32)
[2021-10-06] MEDS: *HR* LORazepam 0.5 MG TABLET PO PRN (07:59)
[2021-10-06] MEDS: Azithromycin 250 MG TABLET PO SCH (07:59)
[2021-10-06] MEDS: lisinopriL 20 MG TABLET PO SCH (07:59)
[2021-10-06] MEDS: amLODIPine 5 MG TABLET PO SCH (07:59)
[2021-10-06] MEDS: Budesonide/Formoterol 160/4.5 1 PUFF INH IH SCH ×2 (10:56→23:15)
[2021-10-06] MEDS: Mirtazapine 15 MG TABLET PO SCH (21:35)
[2021-10-07] MEDS: MethylPREDNISolone 40 MG/ML VIAL IVP SCH ×3 (00:01→16:47)
[2021-10-07] MEDS: Piperacillin/Tazobactam 3.375 GM in 0.9 % Sodium Chloride Mini Bag 100 ML IVPB SCH ×2 (00:01→09:50)
[2021-10-07 06:51] LABS: Basophils % 0.2 %; Hematocrit 39.6 % (37.5-50.1); Hemoglobin 12.5 g/dL (12.9-16.9); Immature Granulocytes % 0.4 % (0-4); Lymphocytes # 0.5 K/mcL (0.6-4.6); Lymphocytes % 3.8 %; Mean Corpuscular HGB Conc 31.6 g/dL (31.6-35.5); Mean Corpuscular Hemoglobin 27.8 pg (28.0-33.3); Mean Corpuscular Volume 88.2 fL (83.0-100.0); Monocytes # 0.2 K/mcL (0.0-1.3); Monocytes % 1.9 %; Platelet Count 345 K/mcL (140-400); Red Blood Count 4.49 M/mcL (4.19-5.50); Red Cell Distribution Width 15.4 % (11.5-14.5); Segmented Neutrophils % 93.7 %; White Blood Count 11.9 K/mcL (4.3-11.1)
[2021-10-07 06:59] LABS: Neutrophils # 11.2 K/mcL (1.6-8.9)
[2021-10-07 07:04] LABS: BUN/Creatinine Ratio 47 (6-26); Blood Urea Nitrogen 25 mg/dL (8-23); Calcium 9.1 mg/dL (8.6-10.3); Carbon Dioxide 35 mEq/L (23-29); Chloride 93 mEq/L (98-107); Glucose 103 mg/dL (70-105); Osmolality,Calculated 287 (280-300); Potassium 4.8 mEq/L (3.5-5.1); Sodium 136 mEq/L (136-145); eGFR For African Americans > 60 (> 60); eGFR For Non-African Americans > 60 (> 60)
[2021-10-07] MEDS: Insulin LISPRO 300 UNITS/3 ML VIAL SUBQ SCH ×4 (07:45→21:24)
[2021-10-07] MEDS: Budesonide/Formoterol 160/4.5 1 PUFF INH IH SCH ×2 (09:30→21:55)
[2021-10-07] MEDS: Nicotine 14 MG PATCH.TD24 TD SCH (09:47)
[2021-10-07] MEDS: amLODIPine 5 MG TABLET PO SCH (09:48)
[2021-10-07] MEDS: lisinopriL 20 MG TABLET PO SCH (09:49)
[2021-10-07] MEDS: Azithromycin 250 MG TABLET PO SCH (09:52)
[2021-10-07] MEDS: Cefdinir 300 MG CAPSULE PO SCH (21:23)
[2021-10-07] MEDS: Mirtazapine 15 MG TABLET PO SCH (21:24)
[2021-10-08] MEDS: MethylPREDNISolone 40 MG/ML VIAL IVP SCH ×4 (00:27→22:40)
[2021-10-08] MEDS: *HR* Enoxaparin 40 MG/0.4 ML SYRINGE SQ SCH (05:29)
[2021-10-08 07:18] LABS: Basophils % 0.1 %; Hematocrit 38.2 % (37.5-50.1); Hemoglobin 11.9 g/dL (12.9-16.9); Immature Granulocytes % 0.5 % (0-4); Lymphocytes # 0.3 K/mcL (0.6-4.6); Lymphocytes % 2.5 %; Mean Corpuscular HGB Conc 31.2 g/dL (31.6-35.5); Mean Corpuscular Hemoglobin 27.7 pg (28.0-33.3); Mean Platelet Volume 9.7 fL (9.4-12.4); Monocytes # 0.3 K/mcL (0.0-1.3); Monocytes % 1.9 %; Neutrophils # 12.5 K/mcL (1.6-8.9); Platelet Count 300 K/mcL (140-400); Red Blood Count 4.29 M/mcL (4.19-5.50); Red Cell Distribution Width 15.6 % (11.5-14.5); White Blood Count 13.2 K/mcL (4.3-11.1)
[2021-10-08] MEDS: Insulin LISPRO 300 UNITS/3 ML VIAL SUBQ SCH ×4 (07:30→21:40)
[2021-10-08 07:51] LABS: BUN/Creatinine Ratio 53 (6-26); Blood Urea Nitrogen 25 mg/dL (8-23); Calcium 8.7 mg/dL (8.6-10.3); Carbon Dioxide 41 mEq/L (23-29); Chloride 95 mEq/L (98-107); Glucose 127 mg/dL (70-105); Osmolality,Calculated 288 (280-300); Potassium 5.1 mEq/L (3.5-5.1); Sodium 136 mEq/L (136-145); eGFR For African Americans > 60 (> 60); eGFR For Non-African Americans > 60 (> 60)
[2021-10-08] MEDS: GuaiFENesin/Codeine Oral Soln 5 ML UDC PO PRN (08:07)
[2021-10-08] MEDS: amLODIPine 5 MG TABLET PO SCH (08:07)
[2021-10-08] MEDS: Nicotine 14 MG PATCH.TD24 TD SCH (08:07)
[2021-10-08] MEDS: lisinopriL 20 MG TABLET PO SCH (08:07)
[2021-10-08] MEDS: Cefdinir 300 MG CAPSULE PO SCH ×2 (08:07→21:43)
[2021-10-08] MEDS: Azithromycin 250 MG TABLET PO SCH (08:07)
[2021-10-08] MEDS: Budesonide/Formoterol 160/4.5 1 PUFF INH IH SCH ×2 (09:19→22:46)
[2021-10-08] MEDS: Mirtazapine 15 MG TABLET PO SCH (21:43)
[2021-10-08] MEDS: Acetaminophen 325 MG TABLET PO PRN (22:06)
[2021-10-09] MEDS: MethylPREDNISolone 40 MG/ML VIAL IVP SCH ×3 (05:56→23:30)
[2021-10-09] MEDS: *HR* Enoxaparin 40 MG/0.4 ML SYRINGE SQ SCH (05:56)
[2021-10-09] MEDS: Insulin LISPRO 300 UNITS/3 ML VIAL SUBQ SCH ×4 (07:19→22:13)
[2021-10-09] MEDS: Azithromycin 250 MG TABLET PO SCH (08:09)
[2021-10-09] MEDS: Cefdinir 300 MG CAPSULE PO SCH ×2 (08:09→19:48)
[2021-10-09] MEDS: amLODIPine 5 MG TABLET PO SCH (08:10)
[2021-10-09] MEDS: Nicotine 14 MG PATCH.TD24 TD SCH (08:10)
[2021-10-09] MEDS: lisinopriL 20 MG TABLET PO SCH (08:10)
[2021-10-09] MEDS: Budesonide/Formoterol 160/4.5 1 PUFF INH IH SCH ×2 (09:20→22:28)
[2021-10-09] MEDS: Mirtazapine 15 MG TABLET PO SCH (19:48)
[2021-10-10] MEDS: *HR* Enoxaparin 40 MG/0.4 ML SYRINGE SQ SCH (06:34)
[2021-10-10] MEDS: MethylPREDNISolone 40 MG/ML VIAL IVP SCH (06:34)
[2021-10-10] MEDS: Insulin LISPRO 300 UNITS/3 ML VIAL SUBQ SCH ×4 (07:39→20:40)
[2021-10-10] MEDS: Budesonide/Formoterol 160/4.5 1 PUFF INH IH SCH ×2 (08:07→21:55)
[2021-10-10] MEDS: Azithromycin 250 MG TABLET PO SCH (09:30)
[2021-10-10] MEDS: lisinopriL 20 MG TABLET PO SCH (09:30)
[2021-10-10] MEDS: amLODIPine 5 MG TABLET PO SCH (09:30)
[2021-10-10] MEDS: Nicotine 14 MG PATCH.TD24 TD SCH (09:31)
[2021-10-10] MEDS: Cefdinir 300 MG CAPSULE PO SCH ×2 (09:31→20:40)
[2021-10-10] MEDS: Mirtazapine 15 MG TABLET PO SCH (20:39)
[2021-10-11] MEDS: *HR* Enoxaparin 40 MG/0.4 ML SYRINGE SQ SCH (05:35)
[2021-10-11 07:14] LABS: Basophils % 0.1 %; Eosinophils # 0.3 K/mcL (0.0-0.6); Eosinophils % 2.9 %; Hematocrit 37.5 % (37.5-50.1); Hemoglobin 11.8 g/dL (12.9-16.9); Immature Granulocytes % 0.9 % (0-4); Lymphocytes # 1.2 K/mcL (0.6-4.6); Lymphocytes % 12.6 %; Mean Corpuscular HGB Conc 31.5 g/dL (31.6-35.5); Mean Corpuscular Volume 89.1 fL (83.0-100.0); Mean Platelet Volume 9.1 fL (9.4-12.4); Monocytes # 0.7 K/mcL (0.0-1.3); Monocytes % 6.7 %; Neutrophils # 7.5 K/mcL (1.6-8.9); Platelet Count 295 K/mcL (140-400); Red Blood Count 4.21 M/mcL (4.19-5.50); Red Cell Distribution Width 15.7 % (11.5-14.5); Segmented Neutrophils % 76.8 %; White Blood Count 9.7 K/mcL (4.3-11.1)
[2021-10-11] MEDS: Insulin LISPRO 300 UNITS/3 ML VIAL SUBQ SCH ×2 (07:44→11:47)
[2021-10-11 07:52] LABS: BUN/Creatinine Ratio 42 (6-26); Blood Urea Nitrogen 24 mg/dL (8-23); Calcium 8.6 mg/dL (8.6-10.3); Chloride 87 mEq/L (98-107); Glucose 73 mg/dL (70-105); Osmolality,Calculated 279 (280-300); Sodium 133 mEq/L (136-145); eGFR For African Americans > 60 (> 60); eGFR For Non-African Americans > 60 (> 60)
[2021-10-11 07:55] LABS: Carbon Dioxide > 45 mEq/L (23-29)
[2021-10-11] MEDS ORDERED: predniSONE 20 MG TABLET PO SCH (09:00)
[2021-10-11] MEDS: Nicotine 14 MG PATCH.TD24 TD SCH (09:17)
[2021-10-11] MEDS: Cefdinir 300 MG CAPSULE PO SCH (09:18)
[2021-10-11] MEDS: lisinopriL 20 MG TABLET PO SCH (09:18)
[2021-10-11] MEDS: Azithromycin 250 MG TABLET PO SCH (09:18)
[2021-10-11] MEDS: amLODIPine 5 MG TABLET PO SCH (09:18)
[2021-10-11] MEDS: Budesonide/Formoterol 160/4.5 1 PUFF INH IH SCH (09:24)
[2021-10-11 13:55] LABS: Influenza A PCR Negative (Negative); Influenza B PCR Negative (Negative); Resp. Syncytial Virus PCR Negative (Negative); SARS-CoV-2 by PCR (In House) Negative (Negative)
[2021-10-11 16:29] VITALS: BP 125/82; PULSE 88; RESP 16; TEMP 97.8; O2SAT 98
== END 2021-10-11 17:10 | DRG 140 ==
LOC: INPPIK 10:54 → EMEROOPIK 10:54 → INPPIK 14:57 → SUATTDRO 10-03 19:15 → INPPIK 10-08 17:06
PROVIDERS: ADMIT Internal Medicine; ATTEND Family Medicine